=== PATIENT | female | born 1935 | race Asian ===

== ENCOUNTER → 2016-07-06 | Day surgery (SDC) | payer OTHER, MEDICARE ==
[~2016-07-06] VITALS: Ht 152.4 cm; Wt 56.7 kg
--- NOTE | 2016-07-06 14:04 | Operative Report ---
Operative/Inv Procedure Report Surgery Date: 07/06/16 Name of Procedure: Cystoscopy and change of L ureteral stent Pre-Operative Diagnosis: L hydronephrosis Post-Operative Diagnosis: Same Estimated Blood Loss: scant Surgeon/Food Service Clerk: Shine NAVARRETE,ALON Vásquez Anesthesia: moderate sedation Drains: 24 cm, 6 fr L double J ureteral stent Specimens: Removed stent Urine for culture Complications: none Condition: stable Operative Indication: L hydronephrosis due to L proximal ureteral stricture Operative/Procedure Note Note: The patient was taken to the cystoscopy room and identified. She was placed in the supine position on the cystoscopy table. A timeout was executed appropriately the patient awake. Intravenous anesthesia was then given. She was then placed in the dorsolithotomy position and prepped and draped in usual fashion for cystoscopy. Surgical pause was executed appropriately. A fluoroscopy image was taken with a marker on the left side of the abdomen to confirm the correct side of surgery as well as the correct orientation fluoroscopy image. Of note the indwelling left ureteral stent was also visualized. A 22 [place] Islander cystoscope sheath was placed into the bladder and cystoscopy was performed. The bladder was normal with exception of the distal end of the left ureteral stent being seen on the left trigone. Both ureteral orifices were normal in location. A sensor guidewire was placed through the cystoscope into the left ureter and up to the level of the kidney. Next the cystoscope was removed and placed back into the bladder adjacent guidewire. Using a grasper the indwelling stent was removed. Open-ended catheter was placed over the wire and the wire removed. Some contrast was injected. This point was clear that the wire had been in the proximal ureter in the midst of a tortuous left proximal ureteral stricture. An attempt to bypass the stricture using the guidewire through the open-ended catheter was unsuccessful. Therefore this guidewire was removed leaving the open-ended catheter in place. An angled tip guidewire was then placed with the open-ended catheter this was negotiated through the left proximal ureteral stricture up into the left renal collecting system which was hydronephrotic testing with contrast in it. The open-ended catheter was advanced over the glide wire. The guidewire was removed and replaced with a sensor wire. He open-ended catheter was then removed leaving the sensor wire in place. The visual fluoroscopic control, over the sensor wire , a 24 cm 6 [place] Islander left double-J ureteral stent was placed. No suture was left attached to the distal end. Thoracic began from the proximal in stent coiled in the left renal pelvis and the distal on the bladder. The cystoscope was removed. The patient tolerated the procedure well and has completed was taken to recovery in stable condition. The operative dictation on [facility] Findings: Left hydronephrosis due to tortuous stricture in the left proximal ureter Discharge Disposition: PACU
--- NOTE | 2016-07-07 10:26 | RADIOLOGY REPORT ---
EXAMINATION: XR ABDOMEN CLINICAL INDICATION: Left ureteral stent exchange. COMPARISON: 08/05/2015 TECHNIQUE: Fluoroscopic imaging of the left abdomen was utilized during procedure performed by Dr. Serrano. 4 spot fluoroscopy images are submitted into the electronic picture archive. FINDINGS: One of the saved images from the retrograde ureterography shows irregular narrowing of the mid left ureter and chronic, moderate left hydronephrosis. The final images show satisfactory position of the double-J left ureteral stent. FLUOROSCOPY TIME: 1 minute, 28 seconds. DOSE: 1.34 rad. IMPRESSION: Fluoroscopic imaging assistance provided to the operating room for left ureteral stent exchange.
== END ==
LOC: STS 03:54
DX: N13.1 Hydronephrosis with ureteral stricture, not elsewhere classified (principal); E11.9 Type 2 diabetes mellitus without complications; Z79.84 Long term (current) use of oral hypoglycemic drugs; E78.5 Hyperlipidemia, unspecified; I10 Essential (primary) hypertension
CPT/HCPCS: 74000; 87086; C2617; J0690

== ENCOUNTER 2017-05-27 10:27 | Inpatient (IN) | payer OTHER, MEDICARE ==
[~2017-05-27] VITALS: Ht 154.9 cm; Wt 59.9 kg
[~2017-05-27 10:27] MED LIST: AMLODIPINE BESY10 M1 PO; BENAZEPRIL HCL20 MG PO; BYSTOLIC5 M1 PO; METFORMIN HCL500 M4 PO; SIMVASTATIN20 M2 PO
--- NOTE | 2017-05-27 10:43 | ED INFLUENZA/URI COMPLAINT ---
History of Present Illness General Chief Complaint: General Adult Stated Complaint: SOB/COUGH Source: patient, family Exam Limitations: language barrier Vital Signs & Intake/Output Vital Signs & Intake/Output Vital Signs Date Time Temp Pulse Resp B/P B/P Pulse O2 O2 Flow FiO2 Mean Ox Delivery Rate 05/27 1342 98.0 86 22 173/72 96 Room Air 05/27 1214 94 05/27 1137 Room Air 05/27 1034 98.3 81 20 175/79 96 Room Air Allergies Coded Allergies: NO KNOWN ALLERGIES (07/02/16) NKA PER ANTIBIOTIC ORDER SHEET OF 12/10/14 (SJS) Reconcile Medications Amlodipine Besylate 10 MG TABLET 1 TAB PO DAILY HTN (Reported) Benazepril HCl 20 MG TABLET 1 TAB PO DAILY HTN (Reported) Metformin HCl (Metformin HCl ER) 500 MG TAB.ER.24H 1 TAB PO DAILY DM II ( Reported) Nebivolol HCl (Bystolic) 5 MG TABLET 1 TAB PO DAILY HTN (Reported) Simvastatin (Simvastatin*) 20 MG TABLET 1 TAB PO QPM CHOLESTEROL (Reported) Triage Note: PT TO ED C/O COUGH X A FEW DAYS. PT WENT TO WALK IN AND WAS ADVISED TO COME TO ED FOR FURTHER EVAL. NO OBVIOUS RESP DISTRESS. RA SATS 96%. DAUGHTER IN LAW HERE TO TRANSLATE. SPEAKING ONLY. Triage Nurses Notes Reviewed? yes Onset: Gradual Duration: getting worse Timing: recent history Severity: moderate Severity Numbers: 5 HPI: Patient is a 81-year-old female with past medical history HLD, diabetes, hypertension who is primarily Dominican speaking only who presents emergency room with daughter AND SON who translates for concerns of a one-week history of shortness of breath cough GENERALIZED weakness and fatigue intermittent chest pain was evaluated prior to arrival today by urgent care facility was advised to present to emergency room for symptoms. Positive sick contacts at home Denies any smoking history Patient is profoundly weak per son who lives with patient where she requires significant ambulatory assistance Patient is also complaining of left lateral back pain without a mechanism injury Patient is also having increased frequency of urination can tolerate by mouth however decreased amount Denies any leg swelling, hemoptysis (Roderick BARBER,Steven) Past History Travel History Traveled to [place] past 21 day No Medical History Any Pertinent Medical History? see below for history Cardiovascular: hypertension, hyperlipidemia Endocrine: diabetes Surgical History Surgical History: non-contributory Psychosocial History What is your primary language Dominican Tobacco Use: Never used ETOH Use: denies use Illicit Drug Use: denies illicit drug use Family History Hx Contributory? No (Steven Garcia) Review of Systems Review of Systems Constitutional: Reports: see HPI, malaise, weakness. EENTM: Reports: no symptoms. Respiratory: Reports: see HPI, cough, short of breath. Cardiovascular: Reports: see HPI, chest pain. Denies: peripheral edema. GI: Reports: see HPI. Denies: abdominal pain. Genitourinary: Reports: see HPI. Musculoskeletal: Reports: see HPI, back pain. Skin: Reports: no symptoms. Neurological/Psychological: Reports: no symptoms. Hematologic/Endocrine: Reports: no symptoms. Immunologic/Allergic: Reports: no symptoms. All Other Systems: Reviewed and Negative (Steven Garcia) Physical Exam Physical Exam General Appearance: lethargic, thin Head: atraumatic Eyes: Bilateral: normal appearance. Ears, Nose, Throat: normal ENT inspection, moist mucous membrane Neck: normal inspection Respiratory: chest non-tender, crackles, rhonchi Cardiovascular: regular rate/rhythm Peripheral Pulses: 2+ radial (R), 2+ radial (L) Gastrointestinal: normal bowel sounds, soft, non-tender, no organomegaly Back: normal inspection, LEFT LATERAL MUSCULAR PAIN UPON PALPATION Extremities: normal inspection, normal range of motion, no edema Neurologic/Psych: no motor/sensory deficits Skin: intact, normal color, warm/dry Core Measures Sepsis Present: No Sepsis Focused Exam Completed? No (Steven Garcia) Progress Differential Diagnosis: influenza, meningitis, neutropenia, otitis, pneumonia, pharyngitis, sinusitis Plan of Care: Orders Procedure Date/time Status Consistent Carbohydrate 1 05/27 D Active Misc Message 05/27 1451 Active ED Holding Orders 05/27 1451 Active Admit to inpatient 05/27 1451 Active Vital Signs 05/27 1451 Active Code Status 05/27 1451 Active ECHOCARDIOGRAM 05/27 1445 Active BLOOD CULTURE 05/27 1307 Active AEROSOL (GEN) 05/27 1216 Complete CULTURE,URINE 05/27 1211 Active EKG 05/27 1202 Active URINALYSIS 05/27 1143 Active LOWER RESPIRATORY CULTURE 05/27 1049 Active BLOOD CULTURE 05/27 1049 Active TROPONIN LEVEL 05/27 1049 Complete LACTIC ACID 05/27 1049 Complete D-DIMER 05/27 1049 Complete COMPREHENSIVE METABOLIC PANEL 05/27 1049 Complete CBC WITHOUT DIFFERENTIAL 05/27 1049 Complete B-TYPE NATRIURETIC PEP (BNP) 05/27 1049 Complete EKG 05/27 1049 Active RAPID VIRAL INFLUENZA A 05/27 1043 Complete Current Medications Sig/Sanya Start time Last Medication Dose Stop Time Status Admin Azithromycin 500 MG ONCE ONE 05/27 1430 AC (Zithromax) 05/27 1529 Sodium Chloride 250 ML (Normal Saline 0.9%) Furosemide 20 MG ONCE ONE 05/27 1430 CAN (Lasix) 05/27 1431 Laboratory Tests 05/27/17 1349: Lactic Acid Cancelled 05/27/17 1124: Anion Gap 18 H, Estimated GFR 18 L, BUN/Creatinine Ratio 14.2, Glucose 128 H, Lactic Acid 1.1, Calcium 9.1, Total Bilirubin 0.2, AST 97 H, ALT 99 H, Alkaline Phosphatase 124, Troponin I < 0.01, Ero-Z-Jlxllixrevf Pept 1540 H, Total Protein 6.5, Albumin 3.6, Globulin 2.9, Albumin/Globulin Ratio 1.2, D- Dimer High Sensitivty 529 H, CBC w Diff NO MAN DIFF REQ, RBC 3.27 L, MCV 89.5, MCH 30.0, RDW 13.0, MPV 8.2, Gran % 81.1 H, Lymphocytes % 11.6 L, Monocytes % 6.4, Eosinophils % 0.7, Basophils % 0.2, Absolute Granulocytes 8.3 H, Absolute Lymphocytes 1.2, Absolute Monocytes 0.7 H, Absolute Eosinophils 0.1, Absolute Basophils 0, PUBS MCHC 33.5 Microbiology 05/27 1307 BLOOD: Blood Culture - ORD 05/27 1254 BLOOD: Blood Culture - RECD 05/27 1211 URINE ROUT: Urine Culture - ORD 05/27 1200 BLOOD: Blood Culture - CAN Cancelled: Quantity not sufficient for Aerobic blood culture bottle. 05/27 1124 BLOOD: Blood Culture - RECD 05/27 1049 LOWER RESP: Respiratory Culture - ORD 05/27 1049 LOWER RESP: Gram Stain - ORD 05/27 1043 NASOPHARYN: Influenza Virus A & B Rapid Smear - COMP Differential diagnosis includes CHF PA PE electrolyte abnormality, AUGUSTO sepsis kidney stone cancer and AAA or dissection UTI Patient initial examination was noted to be in mild distress due to pain however oxygen saturation was 96% but tachypnea was noted. Patient requires significant assistance upon transfer from the wheelchair to the bed which FAMILY IS Stating PT HAS SIGNIFICANTLY DECLINED IN AMBULATORY STATUS IN WHICH PT DOES NOT USE ASSISTANCE UPON AMBULATION AT HOME, Patient Does Have Adventitious Breath Sounds Which Breathing Treatment Was Ordered Patient was given morphine and Tylenol for the left-sided back pain where after administration patient felt significantly improved and currently is resting comfortably at bedside patient does have concerns of acute kidney injury most likely to patient's respiratory complaints and decreased by mouth intake however patient did receive d-dimer showing age-adjusted mild elevation however my suspicion of a pulmonary embolism at this time is is low After admission patient may require a VQ scan No tachycardia and no hemoptysis no leg swelling CT scan shows results of concerns of bronchiolitis and bronchopneumonia IV antibiotics were administered for COMMUNITY ACQUIRED pneumonia, patient does have consideration of CHF due to cardiomegaly and pericardial effusion was telemetry upon admission was advisable. Discussed admission with Dr. Carter who also was aware Diagnostic Imaging: Viewed by Me: Radiology Read. Radiology Impression: acute abnormality CXR Impression: SEE COMMENTS Initial ED EKG: normal p-waves, normal QRS complex, 88 BPM,NSR Comments: PATIENT: Lolita SALAZAR [facility] PRESENT AGE: 81 PATIENT ACCOUNT NO: [id number] : 37 LOCATION: [facility] ORDERING PHYSICIAN: Steven BARBER SERVICE DATE: 05/27/17 EXAM TYPE: RAD - XRY-CHEST XRAY, TWO VIEWS EXAMINATION: XR CHEST CLINICAL INFORMATION: Cough COMPARISON: None TECHNIQUE: 2 views of the chest were obtained. FINDINGS: Moderate to marked cardiomegaly. No abnormal tracheal deviation. The lungs are normally and symmetrically expanded. No significant pleural effusions. Mild prominence of the pulmonary vasculature is noted. No overt pulmonary edema. No focal consolidation or pneumothorax. Minimal biapical pleural thickening. The regional skeleton is intact. Visualized upper abdomen is unremarkable. IMPRESSION: Moderate to marked cardiomegaly. Mild pulmonary venous congestion without overt edema. No radiographic evidence of pneumonia. DICTATED BY: Melania Greer MD DATE/TIME DICTATED:05/27/171124 [facility]B ENGINEER:SURINDER DATE/TIME TRANSCRIBED:05/27/171124 (Roderick BARBER,Steven) Departure Departure Disposition: STILL A PATIENT Condition: Stable Clinical Impression Primary Impression: CHF (congestive heart failure) Secondary Impressions: Acute on chronic renal failure, Anemia, Dehydration, Pneumonia, Transaminitis, Weakness Referrals: Juni Higgins DO (PCP/Family) Departure Forms: Customer Survey General Discharge Information Admission Note Spoke With: Una Dewey MD Documentation of Exam: Documentation of any treatments & extenuating circumstances including Concerns Regarding Discharge (functional status, medication knowledge or non-compliance, living conditions, etc.) that warrant an admission rather than observation: [ Discussed patient with Dr. ROBERSON who agrees with telemetry admission for concerns of CHF and bronchial pneumonia and acute on chronic renal failure, patient requires cardiology consultation and echocardiogram, repeat labs, blood cultures urine culture currently pending nephrology consultation] (Roderick BARBER,Steven) PA/PLASTIC WELDING MACHINE OPERATOR Co-Sign Statement Statement: ED Attending supervision documentation- [X] I saw and evaluated the patient. I have also reviewed all the pertinent lab results and diagnostic results. I agree with the findings and the plan of care as documented in the PA's/PLASTIC WELDING MACHINE OPERATOR's documentation. Patient presents from a walk-in center for a complaint of difficulty breathing and wheezing. Physical examination reveals a comfortable appearing patient in no acute respiratory distress but occasional cough. [] I have reviewed the ED Record and agree with the PA's/PLASTIC WELDING MACHINE OPERATOR's documentation. [] Additions or exceptions (if any) to the PAs/PLASTIC WELDING MACHINE OPERATOR's note and plan are summarized below: [] (Emma NAVARRETE,Justin Omalley)
--- NOTE | 2017-05-27 11:35 | RADIOLOGY REPORT ---
EXAMINATION: XR CHEST CLINICAL INFORMATION: Cough COMPARISON: None TECHNIQUE: 2 views of the chest were obtained. FINDINGS: Moderate to marked cardiomegaly. No abnormal tracheal deviation. The lungs are normally and symmetrically expanded. No significant pleural effusions. Mild prominence of the pulmonary vasculature is noted. No overt pulmonary edema. No focal consolidation or pneumothorax. Minimal biapical pleural thickening. The regional skeleton is intact. Visualized upper abdomen is unremarkable. IMPRESSION: Moderate to marked cardiomegaly. Mild pulmonary venous congestion without overt edema. No radiographic evidence of pneumonia.
[2017-05-27 11:37] LABS: ABSOLUTE BASOPHIL COUNT 0 /CUMM (0.0-0.2); ABSOLUTE EOSINOPHIL COUNT 0.1 /CUMM (0.0-0.7); ABSOLUTE GRANULOCYTE CT 8.3 /CUMM (1.4-6.5); ABSOLUTE LYMPH COUNT 1.2 /CUMM (1.2-3.4); ABSOLUTE MONOCYTE COUNT 0.7 /CUMM (0.10-0.60); BASOPHIL % 0.2 % (0.0-2.0); EOSINOPHIL % 0.7 % (0-5); GRANULOCYTE % 81.1 % (42.2-75.2); HEMATOCRIT 29.3 % (37-47); MEAN CORPUSCULAR HGB CONC 33.5 G/DL (33.0-37.0); MEAN CORPUSCULAR VOLUME 89.5 FL (81.0-99.0); MEAN PLATELET VOLUME 8.2 FL (7.4-10.4); PLATELET COUNT 316 /CUMM (130-400); RED BLOOD CELL CT 3.27 /CUMM (4.20-5.40); WHITE BLOOD CELL COUNT 10.3 /CUMM (4.8-10.8)
--- NOTE | 2017-05-27 14:14 | CT SCAN REPORT ---
EXAMINATION: CT CHEST WITHOUT IV CONTRAST CT ABDOMEN AND PELVIS WITHOUT IV CONTRAST CLINICAL INFORMATION: 81-year-old female with shortness of breath, cough and left-sided back pain. COMPARISON: CXR from 05/27/2017. CT images of the abdomen pelvis from 11/15/2014. TECHNIQUE: Noncontrast multidetector CT imaging examination of the chest, abdomen and pelvis was performed. Axial images are displayed at 5 mm and 0.65 mm slice thickness. Coronal and sagittal reformatted images were generated at the technologist's workstation and submitted for review. DLP: 342 mGy-cm FINDINGS: CHEST - LUNGS and PLEURA: Trachea and mainstem bronchi are widely patent and normal in caliber. Bronchial womack are thickened in both lungs. Multiple tree-in-bud nodular opacities are present within both upper lobes, right middle lobe and lower lobes. These findings are consistent with infectious bronchiolitis. Also, there are patchy nodular peribronchiolar opacities in lower lobes, as well, suggestive of bronchopneumonia. No pneumothorax or pleural effusion. MEDIASTINUM: Mild cardiomegaly. Three-vessel coronary artery atherosclerotic calcification. Mild atherosclerotic calcification of thoracic aorta. The ascending thoracic aorta is ectatic and measures up to 4 cm AP diameter. Moderate pericardial effusion. The esophagus and visualized portion of the thyroid gland are unremarkable. LYMPHATICS: No axillary or internal mammary lymphadenopathy. Multiple small lymph nodes are present within the mediastinum. These lymph nodes are not pathologic on the basis of size criteria. CHEST WALL/BONES: Bones appear diffusely osteoporotic. Multiple thoracic vertebra exhibit mild concavity of their endplates. No acute fractures. ABDOMEN AND PELVIS - HEPATOBILIARY: Liver has normal size and contour. Small, 0.6 cm hypodense focus within hepatic segment 4A is likely a cyst and remains unchanged in size compared to 11/15/2014. Otherwise, liver is unremarkable. Gallbladder is physiologically distended and without radiopaque calculi or wall edema. No intrahepatic or extrahepatic bile duct dilatation. PANCREAS: Unremarkable. SPLEEN: Unremarkable. ADRENAL GLANDS: Unremarkable. KIDNEYS, URETERS, BLADDER: Right kidney has normal cortical thickness. No right-sided nephrolithiasis or hydronephrosis. 1.5 cm cortical cyst of the right lower pole. There is a 0.9 cm cortical cyst of the mid left kidney. Chronic jftwamqi-bv-qgyopw atrophy of left renal cortex and chronic hydroureteronephrosis. A left ureteral stent extends from the level of the proximal ureter (beginning 1.8 cm distal to the ureteropelvic junction) to the bladder. There is mild urothelial thickening of the left intrarenal collecting system/ureter. No urinary tract calculi. GASTROINTESTINAL TRACT: Stomach is underdistended. Loops of bowel are normal in size. No evidence of inflammation or obstruction along the gastrointestinal tract. No ascites or pneumoperitoneum. ABDOMINAL WALL: Unremarkable. VASCULAR: Iivc-hq-gdwwitjg atherosclerotic calcification of the abdominal aorta without aneurysm. No retroperitoneal hematoma. LYMPH NODES: No pathologic sized lymph nodes within the abdomen or pelvis. PELVIC VISCERA: There are myometrial vascular calcifications of the uterus. No evidence of uterine or adnexal mass. No pelvic free fluid. OSSEOUS STRUCTURES: Bones appear diffusely osteoporotic. No acute findings within the lumbar spine, pelvis or proximal femurs. IMPRESSION: 1. Multiple tree-in-bud nodules throughout both lungs, consistent with infectious bronchiolitis. Also, patchy peribronchial nodular opacities are present within lower lobes, compatible with bronchopneumonia. No pleural effusion. 2. Other findings in the chest include cardiomegaly, atherosclerotic disease of coronary arteries, mild ectasia of the ascending thoracic aorta (4 cm diameter) and moderate pericardial effusion. 3. Chronic left hydroureteronephrosis with left ureteral stent in place, and chronic vngjfswi-wz-ihyxck atrophy of the left renal cortex. 4. Diffuse osteoporosis.
--- NOTE | 2017-05-27 15:00 | History & Physical ---
Shirlene De Guzman MD,[facility] 05/27/17 1451: General Information and HPI MD Statement: I have seen and personally examined Lolita SALAZAR and documented this H&P. The patient is a 81 year old F who presented with a patient stated chief complaint of cough and weakness. Source of Information: patient, family Exam Limitations: language barrier History of Present Illness: Patient is 81 y F with PMH of chronic left hydronephrosis (w/ indwelling stent changed every 9month, last changed in Feb), HTN, HLip, DM presented to the ED with cc of cough and weakness. Patient is Bel[place]ian speaking, son and daughter were at the bedside and contributing in history taking. According to family patients was in usual state of health until 10 days ago that started to have dry cough, wheezing and generalized weakness. She also had decreased appetite and physical activity compared to baseline. She denied any sneezing or upper respiratory tract infection symptoms, yet she had contact with her son who had URTI symptoms for which he is recieving consevative treatment. She also started to have a lower back from after coming to hospital today. Patient denied any chest pain, shortness of breathing, dizziness, but reported constipation. Patient was last admitted to [place] in Feb 2017 for Cystoscopy and change of L ureteral stent by Dr Burrell. Last echocardiogram was in 2012 showing normal ejection fraction of 65% and moderate MR and borderline pulmonary hypertension. She lives with her family (son and daughter), in her baseline she ambulates independently around the home. She denied any alcohol intake or smoking. Allergies/Medications Allergies: Coded Allergies: NO KNOWN ALLERGIES (07/02/16) NKA PER ANTIBIOTIC ORDER SHEET OF 12/10/14 (S) Home Med list Amlodipine Besylate 10 MG TABLET 1 TAB PO DAILY HTN (Reported) Benazepril HCl 20 MG TABLET 1 TAB PO DAILY HTN (Reported) Metformin HCl (Metformin HCl ER) 500 MG TAB.ER.24H 1 TAB PO DAILY DM II ( Reported) Nebivolol HCl (Bystolic) 5 MG TABLET 1 TAB PO DAILY HTN (Reported) Simvastatin (Simvastatin*) 20 MG TABLET 1 TAB PO QPM CHOLESTEROL (Reported) Past History Travel History Traveled to [place] past 21 day No Medical History Cardiovascular: hypertension, hyperlipidemia Endocrine: diabetes Surgical History Surgical History: non-contributory Past Family/Social History Psychosocial History ETOH Use: denies use Illicit Drug Use: denies illicit drug use Review of Systems Review of Systems Constitutional: Reports: see HPI. EENTM: Reports: no symptoms. Cardiovascular: Denies: chest pain, edema, orthopena. Respiratory: Reports: cough, wheezing. Denies: short of breath, sputum production. GI: Reports: constipation. Musculoskeletal: Reports: back pain. Exam & Diagnostic Data Last 24 Hrs of Vital Signs/I&O Vital Signs Date Time Temp Pulse Resp B/P B/P Pulse O2 O2 Flow FiO2 Mean Ox Delivery Rate 05/27 1342 98.0 86 22 173/72 96 Room Air 05/27 1214 94 05/27 1137 Room Air 05/27 1034 98.3 81 20 175/79 96 Room Air Intake & Output 05/27 1600 05/27 0800 05/27 0000 Intake Total 0 Output Total Balance 0 Intake, Oral 0 Patient 127 lb Weight Weight Reported by Patient Measurement Method Physical Exam General Appearance Alert, Oriented X3, Cooperative, No Acute Distress, [place]ian speaking, relatively ill looking Skin No Significant Lesion Skin Temp/Moisture Exam: Warm/Dry Sepsis Skin Exam (color): Normal for Ethnicity HEENT Atraumatic, EOMI, Mucous Membr. moist/pink Neck No JVD Cardiovascular Regular Rate, Normal S1, Normal S2, no decrease in heart sounds Lungs Bilateral wheezing and ronchi Abdomen Soft, No Tenderness Extremities bilateral, trace to +1 edema Last 24 Hrs of Labs/Vishnu: Laboratory Tests 05/27/17 1453: Urinalysis LIGHT H, Urine Color YEL, Urine Clarity CLEAR, Urine pH 6.0, Ur Specific [place] 1.020, Urine Protein 100 H, Urine Ketones NEG, Urine Nitrite NEG, Urine Bilirubin NEG, Urine Urobilinogen 0.2, Ur Leukocyte Esterase NEG, Ur Microscopic SEDIMENT EXAMINED, Urine RBC RARE, Urine WBC 3-5 H, Ur Epithelial Cells FEW, Granular Casts RARE H, Urine Mucus FEW, Micro UA Comment , Urine Hemoglobin SMALL H, Urine Glucose NEG 05/27/17 1349: Lactic Acid Cancelled 05/27/17 1124: Anion Gap 18 H, Estimated GFR 18 L, BUN/Creatinine Ratio 14.2, Glucose 128 H, Lactic Acid 1.1, Calcium 9.1, Total Bilirubin 0.2, AST 97 H, ALT 99 H, Alkaline Phosphatase 124, Troponin I < 0.01, Fuz-I-Rwipsrwnzpw Pept 1540 H, Total Protein 6.5, Albumin 3.6, Globulin 2.9, Albumin/Globulin Ratio 1.2, D- Dimer High Sensitivty 529 H, CBC w Diff NO MAN DIFF REQ, RBC 3.27 L, MCV 89.5, MCH 30.0, RDW 13.0, MPV 8.2, Gran % 81.1 H, Lymphocytes % 11.6 L, Monocytes % 6.4, Eosinophils % 0.7, Basophils % 0.2, Absolute Granulocytes 8.3 H, Absolute Lymphocytes 1.2, Absolute Monocytes 0.7 H, Absolute Eosinophils 0.1, Absolute Basophils 0, PUBS MCHC 33.5 Microbiology 05/27 145 URINE ROUT: Legionella Antigen - COMP 05/27 145 URINE ROUT: Streptococcus pneumoniae Antigen (M - COMP 05/27 145 URINE ROUT: Urine Culture - RECD 05/27 1307 BLOOD: Blood Culture - ORD 05/27 1254 BLOOD: Blood Culture - RECD 05/27 1200 BLOOD: Blood Culture - CAN Cancelled: Quantity not sufficient for Aerobic blood culture bottle. 05/27 1124 BLOOD: Blood Culture - RECD 05/27 1049 LOWER RESP: Respiratory Culture - ORD 05/27 1049 LOWER RESP: Gram Stain - ORD 05/27 1043 NASOPHARYN: Influenza Virus A & B Rapid Smear - COMP Assessment/Plan Assessment: 81 y F presented with cough, wheezing and weakness PMH: chronic left hydronephrosis (w/ indwelling stent changed every 9month, last changed in Feb), HTN, HLip, DM VS, Ph Ex at admission: BP 17 5/79, [place] 81, RR 20, no fever, saturating well in room air Labs at admission: Hgb 9.8, MCV 89, WBC 10.3, Gran 81%, bicarbonate 16, AG 18, BUN 27, CR 2.6, AST 97, ALT 99, proBNP 1540, d-dimer 529, UA granular cast Imagings at admission: * CXR: Moderate to marked cardiomegaly. Mild pulmonary venous congestion without overt edema. No radiographic evidence of pneumonia. * Chest/Abd CT: 1. Multiple tree-in-bud nodules throughout both lungs, consistent with infectious bronchiolitis. Also, patchy peribronchial nodular opacities are present within lower lobes, compatible with bronchopneumonia. No pleural effusion. 2. Other findings in the chest include cardiomegaly, atherosclerotic disease of coronary arteries, mild ectasia of the ascending thoracic aorta (4 cm diameter) and moderate pericardial effusion. 3. Chronic left hydroureteronephrosis with left ureteral stent in place, and chronic pppjmlgq-vt-tazhwc atrophy of the left renal cortex. 4. Diffuse osteoporosis. Patient was admitted to telemetry floor for management of following conditions: Cough and dyspnea Bronchopneumonia/pneumonia As CT scan revealed patient most likely has bronchopneumonia. - Admit to tele floor - Continue IV ceftriaxone and azithromycin - Samuels culture, blood culture X2 urine and sputum culture, urine Ag for pnuemococ and legionella Mod pericardial effusion- evaluation of CHF was shown in CT scan - I and O, vital signs and weight everyday - Echo stat - cardio consult AUGUSTO granular cast in the urine that suggest ATN. - Urine lytes - consider IV fluids after Urine lytes Increased D Dimer Could be related to the kdiney function Anemia Hg 9.8, normal MCV, could be related to kidney disease, aplastic related to age, chronic disease - check iron panel for now Backpain management of pain with low dose tynelol - tynelol for pain Chronic medical conditions, DM, HTN, HLP, Hep B carrier transaminitis most likely related to Hep B - Hold statin due to increased LFt for now - Hold benicar due to Cr - Continue beta kerri and Amlodipine Diabetic diet, 2 g Na and fluid restriction DVT mechanical and phramacological As Ranked By This Provider Problem List: 1. AUGUSTO (acute kidney injury) 2. CHF (congestive heart failure) 3. Transaminitis 4. Anemia 5. Pneumonia Core Measures/Misc (01/24) Acute Coronary Syndrome ACS Diagnosis: No Congestive Heart Failure Congestive Heart Failure Diagnosis Yes Cerebrovascular Accident CVA/TIA Diagnosis: No VTE (View Protocol) VTE Risk Factors Age>40 No Mechanical VTE Prophylaxis d/t N/A MechProphylax Ordered No VTE Pharm Prophylaxis d/t NA PharmProphylax ordered Sepsis (View protocol) Sepsis Present: No Siobhan Charles 05/27/17 1613: Resident Review Statement Resident Statement: examined this patient, discussed with product development intern, agreed with product development intern, reviewed images, amended to note Other Findings: 81-year-old lady with past medical history of hypertension, diabetes, chronic left hydronephrosis requiring stent placements every 9 months following up with Dr. Serrano, CKD,HLP into the hospital with the family for chief complaint of weakness, coughing. According to the family( patient is [place]ian is speaking), patient has been having dry cough with occasional weakness and occasional wheezing, shortness of breath on exertion for 10 days. Patient son had URI about 15 days ago. Patient denied any chest pain and abdominal pain but reported having back pain upon arrival to the hospital. No fevers or chills, no diarrhea but reported constipation. No history of CVAs or heart attacks. Vital signs admission were stable with elevated blood pressure Alert and oriented 3 HEENT Atraumatic, PERRLA, EOMI Neck Supple, No JVD, Cardiovascular Regular Rate, Normal S1, Normal S2 Lungs bilateral crackles in bases Abdomen Normal Bowel Sounds, Soft, No Tenderness, No Hepatospenomegaly, No Masses, mild midline lumbar tenderness no CVA tenderness Extremities No Clubbing, No Cyanosis, No Edema,Normal Pulses Labs are notable for hemoglobin 9.8, HCO3 16, anion gap 18, creatinine 2.6, BUN 37, AST 97, ALT 99, BNP 1540, troponin 0.01 , UA is positive for urine protein , URINE: CELLULAR CASTS CXR Moderate to marked cardiomegaly. Mild pulmonary venous congestion without overt edema. No radiographic evidence of pneumonia. EKG normal sinus rhythm, 88, QTC 465, inverted p in v1 CT chest abdomen IMPRESSION: 1. Multiple tree-in-bud nodules throughout both lungs, consistent with infectious bronchiolitis. Also, patchy peribronchial nodular opacities are present within lower lobes, compatible with bronchopneumonia. No pleural effusion. 2. Other findings in the chest include cardiomegaly, atherosclerotic disease of coronary arteries, mild ectasia of the ascending thoracic aorta (4 cm diameter) and moderate pericardial effusion. 3. Chronic left hydroureteronephrosis with left ureteral stent in place, and chronic mffcbzyc-yi-kzdtzd atrophy of the left renal cortex. 4. Diffuse osteoporosis. Upon further inverstigattion patient a positive hep B DNA results 2012 she is HEP B carrier Assessment Dry coughing and possible pneumonia Moderate pericardial effusion History of hypertension History of diabetes History of HLP AUGUSTO with celluar cast in the urine Elevated AST and ALT Anemia HEP B carrier plan Admit to telemetry A stat echocardiogram and cardiology consult IV hydration with 1 bag of normal saline Continue IV ceftriaxone and azithromycin Blood cultures 2, urine culture, sputum culture, urine Legionella and strep antigen AUGUSTO can be due to poor oral intake versus MPGN? vs CKD due to Chronic hydronephrosis Accu-Cheks and low-dose sliding scale insulin Diabetic diet 2 g potassium and sodium restrictions Hold Statin for now and check LFTs tomorrow Pain management with low-dose Tylenol DVT prophylaxis is mechanical and pharmacological Hold Benicar and continue beta kerri and amlodipine for BP control Check iron panel, B12, folate Full code
--- NOTE | 2017-05-27 15:48 | Admission Certification ---
Admission Certification Certification Statement - As attending physician, I certify that at the time of - admission, based on clinical presentation, severity of - symptoms, need for further diagnostic testing and - therapeutic interventions, and risk of adverse outcomes - without in-hospital treatment, in my clinical assessment, - this patient requires an acute hospital stay for a minimum - of two nights or longer. I have also considered psychsocial - factors such as support system, advanced age, financial - issues, cognitive issues, and failed out-patient treatments, - past re-admission history, safety of patient, and lack of - compliance as applicable. Specific rationale supporting this admission is: Pneumonia and New pericardial effusion.
--- NOTE | 2017-05-27 16:03 | PN- Att Addend ---
Attending MD Review Statement Attending Statement Attending MD Statement: examined this patient, discuss w/resident/PA/TELEVISION MAINTENANCE MAN, agreed w/resident/PA/TELEVISION MAINTENANCE MAN, discussed with family, reviewed EMR data (avail), discussed w/ nursing, discussed w/case mgmt Attending Assessment/Plan: Laboratory Tests 05/27/17 1453: Urinalysis LIGHT H, Urine Color YEL, Urine Clarity CLEAR, Urine pH 6.0, Ur Specific [place] 1.020, Urine Protein 100 H, Urine Ketones NEG, Urine Nitrite NEG, Urine Bilirubin NEG, Urine Urobilinogen 0.2, Ur Leukocyte Esterase NEG, Ur Microscopic SEDIMENT EXAMINED, Urine RBC RARE, Urine WBC 3-5 H, Ur Epithelial Cells FEW, Granular Casts RARE H, Urine Mucus FEW, Micro UA Comment , Urine Hemoglobin SMALL H, Urine Glucose NEG 05/27/17 1349: Lactic Acid Cancelled 05/27/17 1124: Anion Gap 18 H, Estimated GFR 18 L, BUN/Creatinine Ratio 14.2, Glucose 128 H, Lactic Acid 1.1, Calcium 9.1, Total Bilirubin 0.2, AST 97 H, ALT 99 H, Alkaline Phosphatase 124, Troponin I < 0.01, Ual-S-Pfvzyttiuol Pept 1540 H, Total Protein 6.5, Albumin 3.6, Globulin 2.9, Albumin/Globulin Ratio 1.2, D- Dimer High Sensitivty 529 H, CBC w Diff NO MAN DIFF REQ, RBC 3.27 L, MCV 89.5, MCH 30.0, RDW 13.0, MPV 8.2, Gran % 81.1 H, Lymphocytes % 11.6 L, Monocytes % 6.4, Eosinophils % 0.7, Basophils % 0.2, Absolute Granulocytes 8.3 H, Absolute Lymphocytes 1.2, Absolute Monocytes 0.7 H, Absolute Eosinophils 0.1, Absolute Basophils 0, PUBS MCHC 33.5 Microbiology 05/27 1453 URINE ROUT: Legionella Antigen - COMP 05/27 1453 URINE ROUT: Streptococcus pneumoniae Antigen (M - COMP 05/27 1043 NASOPHARYN: Influenza Virus A & B Rapid Smear - COMP Vital Signs Date Time Temp Pulse Resp B/P B/P Pulse O2 O2 Flow FiO2 Mean Ox Delivery Rate 05/27 1342 98.0 86 22 173/72 96 Room Air 05/27 1214 94 05/27 1137 Room Air 05/27 1034 98.3 81 20 175/79 96 Room Air Pt seen and examined in ER. 81 yr old female with pmh of HTN on amlodipiine, benazepril and bystolic, HLD on statins,DM on metformin, ckd , chronic left side hydronephrosis for which she had stent replaced every 9 months was brought to the ER by family for sob and cough for 1 week duration. Pt was initally taking to urgent care and was sent to ER from there. Pt on CT scan of the chest was found to have- "Multiple tree-in-bud nodules throughout both lungs, consistent with infectious bronchiolitis. Also, patchy peribronchial nodular opacities are present within lower lobes, compatible with bronchopneumonia. Also found to have moderate pericardial effusion" . Pt being admitted for pneumonia and new pericardail effusion- cont on abx and will get stat Echo and will get cardiology consult. Montior on telemetry. gentle hydration. AUGUSTO on CKD- unclear what baseline is . will f/u on renal panel in am. gentle hydration. hold metformin and benazepril. DM- hold metformin. put pt on SSI DVT proh- alps and sc heparin. d/w pt and family the care plan.
[2017-05-27 16:30] VITALS: BP 170/84
--- NOTE | 2017-05-27 20:20 | Cons- Cardiology ---
General Information and HPI Consulting Request Date of Consult: 05/27/17 Requested By: Gail Weber MD Reason for Consult: Pericardial effusion Source of Information: family, old records Exam Limitations: language barrier Allergies/Medications Allergies: Coded Allergies: NO KNOWN ALLERGIES (07/02/16) NKA PER ANTIBIOTIC ORDER SHEET OF 12/10/14 (SJS) Home Med List: Amlodipine Besylate 10 MG TABLET 1 TAB PO DAILY HTN (Reported) Benazepril HCl 20 MG TABLET 1 TAB PO DAILY HTN (Reported) Metformin HCl (Metformin HCl ER) 500 MG TAB.ER.24H 1 TAB PO DAILY DM II ( Reported) Nebivolol HCl (Bystolic) 5 MG TABLET 1 TAB PO DAILY HTN (Reported) Simvastatin (Simvastatin*) 20 MG TABLET 1 TAB PO QPM CHOLESTEROL (Reported) Current Medications: Current Medications Sig/Sanya Start time Last Medication Dose Route Stop Time Status Admin Acetaminophen 325 MG Q4P PRN 05/27 1800 AC 05/27 PO 2012 Acetaminophen 0 .STK-MED ONE 05/27 1230 DC IV Acetaminophen 1,000 MG ONCE ONE 05/27 1215 DC 05/27 N/A 1 UNIT IV 05/27 1229 1227 Albuterol Sulfate 3 ML ONCE ONE 05/27 1200 DC 05/27 INH 05/27 1201 1208 Amlodipine Besylate 10 MG DAILY 05/28 1000 AC PO Amlodipine Besylate 10 MG ONCE ONE 05/27 1615 DC 05/27 PO 05/27 1616 2013 Azithromycin 500 MG Q24H 05/28 1000 AC Sodium Chloride 250 ML IV Azithromycin 500 MG ONCE ONE 05/27 1430 DC 05/27 Sodium Chloride 250 ML IV 05/27 1529 1501 Ceftriaxone Sodium 1,000 MG DAILY 05/28 1000 AC IV Ceftriaxone Sodium 0 .STK-MED ONE 05/27 1542 DC .ROUTE Ceftriaxone Sodium 1,000 MG ONCE ONE 05/27 1430 DC 05/27 IV 05/27 1431 1609 Furosemide 20 MG ONCE ONE 05/27 1430 CAN IV 05/27 1431 Heparin Sodium 5,000 UNIT Q8 05/27 2200 AC 05/27 (Porcine) SC 2013 Influenza Virus 0.5 ML ONCE ONE 05/27 1730 DC Vaccine IM 05/27 1731 Insulin Aspart 0 TIDAC 05/27 1700 AC SC Ipratropium [place] 2.5 ML ONCE ONE 05/27 1200 DC 05/27 INH 05/27 1201 1209 Morphine Sulfate 0 .STK-MED ONE 05/27 1216 DC .ROUTE Morphine Sulfate 2 MG ONCE ONE 05/27 1215 DC 05/27 IV 05/27 1216 1220 Nebivolol 5 MG DAILY 05/28 1000 AC PO Sodium Chloride 1,000 ML Q13H 05/27 1600 AC 05/27 IV 05/28 0459 1744 Sodium Chloride 500 ML BOLUS ONE 05/27 1300 DC 05/27 IV 05/27 1359 1311 Sodium Chloride 500 ML BOLUS ONE 05/27 1215 DC 05/27 IV 05/27 1314 1221 Past History Travel History Traveled to [place] past 21 day No Medical History Blood Transfusion Hx: No Neurological: NONE EENT: NONE Cardiovascular: hypertension, hyperlipidemia Respiratory: pneumonia Gastrointestinal: NONE Hepatic: HEP B CARRIER Renal: L HYDRONBEPHROSIS L RENAL STENT Musculoskeletal: NONE Psychiatric: NONE Endocrine: diabetes Blood Disorders: NONE Cancer(s): NONE 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 Home Services at Home: None Smoking Status: Never Smoked ETOH Use: denies use Illicit Drug Use: denies illicit drug use Exam & Diagnostic Data Vital Signs and I&O Vital Signs Date Time Temp Pulse Resp B/P B/P Pulse O2 O2 Flow FiO2 Mean Ox Delivery Rate 05/27 2012 99.4 05/27 2012 90 182/90 05/27 1630 98.9 89 20 170/84 94 Room Air 05/27 1628 Room Air 05/27 1610 99.0 84 24 183/79 95 Room Air 05/27 1342 98.0 86 22 173/72 96 Room Air 05/27 1214 94 05/27 1137 Room Air 05/27 1034 98.3 81 20 175/79 96 Room Air Intake & Output 05/27 1600 05/27 0800 05/27 0000 05/26 1600 05/26 0800 05/26 0000 Intake Total 0 Output Total Balance 0 Intake, Oral 0 Patient 127 lb Weight Weight Reported by Patient Measurement Method Physical Exam: General Appearance Alert, Oriented X3, Cooperative, No Acute Distress, [place] speaking, relatively ill looking; VSS; Pulsus paradoxus normal Skin No Significant Lesion Skin Temp/Moisture Exam: Warm/Dry HEENT Atraumatic, EOMI, Mucous Membr. moist/pink Neck No JVD, carotids normal bilaterally Cardiovascular Regular Rate, Normal S1, Normal S2, no decrease in heart sounds Lungs Bilateral wheezing and ronchi Abdomen Soft, No Tenderness Extremities bilateral, trace to +1 edema Labs/Vishnu Results: Laboratory Tests 05/27 05/27 1453 1349 Chemistry Lactic Acid Cancelled Urines Urinalysis LIGHT H Urine Color (YEL,AMB,STR) YEL Urine Clarity (CLEAR) CLEAR Urine pH (5.0 - 8.0) 6.0 Ur Specific [place] (1.001 - 1.035) 1.020 Urine Protein (NEG,<30 MG/DL) 100 H Urine Ketones (NEG) NEG Urine Nitrite (NEG) NEG Urine Bilirubin (NEG) NEG Urine Urobilinogen (0.1 - 1.0 EU/dl) 0.2 Ur Leukocyte Esterase (NEG) NEG Ur Microscopic SEDIMENT EXAMINED Urine RBC (0 - 5 /HPF) RARE Urine WBC (0 - 2 /HPF) 3-5 H Ur Epithelial Cells (NONE,FEW) FEW Granular Casts (NONE /LPF) RARE H Urine Mucus (FEW,NONE) FEW Micro UA Comment Urine Hemoglobin (NEG) SMALL H Urine Glucose (N MG/DL) NEG 05/27 1124 Chemistry Sodium (137 - 145 mmol/L) 142 Potassium (3.5 - 5.1 mmol/L) 4.4 Chloride (98 - 107 mmol/L) 107 Carbon Dioxide (22 - 30 mmol/L) 16 L Anion Gap (5 - 16) 18 H BUN (7 - 17 mg/dL) 37 H Creatinine (0.5 - 1.0 mg/dL) 2.6 H Estimated GFR (>60 ml/min) 18 L BUN/Creatinine Ratio (7 - 25 %) 14.2 Glucose (65 - 99 mg/dL) 128 H Lactic Acid (0.7 - 2.1 mmol/L) 1.1 Calcium (8.4 - 10.2 mg/dL) 9.1 Iron (37 - 170 ug/dL) 36 L TIBC (265 - 497 ug/dL) 257 L Ferritin (11.1 - 264 ng/mL) 379.0 H Total Bilirubin (0.2 - 1.3 mg/dL) 0.2 AST (14 - 36 U/L) 97 H ALT (9 - 52 U/L) 99 H Alkaline Phosphatase (<127 U/L) 124 Troponin I (< 0.11 ng/ml) < 0.01 Msd-Q-Uugejljcpyy Pept (<125 pg/mL) 1540 H Total Protein (6.3 - 8.2 g/dL) 6.5 Albumin (3.5 - 5.0 g/dL) 3.6 Globulin (1.9 - 4.2 gm/dL) 2.9 Albumin/Globulin Ratio (1.1 - 2.2 %) 1.2 Vitamin B12 (239 - 931 pg/mL) > 1000 H Folate (2.76 - 20.0 ng/mL) 9.8 Coagulation D-Dimer High Sensitivty (0 - 243 ng/ml) 529 H Hematology CBC w Diff NO MAN DIFF REQ WBC (4.8 - 10.8 /CUMM) 10.3 RBC (4.20 - 5.40 /CUMM) 3.27 L Hgb (12.0 - 16.0 G/DL) 9.8 L Hct (37 - 47 %) 29.3 L MCV (81.0 - 99.0 FL) 89.5 MCH (27.0 - 31.0 PG) 30.0 RDW (11.5 - 14.5 %) 13.0 Plt Count (130 - 400 /CUMM) 316 MPV (7.4 - 10.4 FL) 8.2 Gran % (42.2 - 75.2 %) 81.1 H Lymphocytes % (20.5 - 51.1 %) 11.6 L Monocytes % (1.7 - 9.3 %) 6.4 Eosinophils % (0 - 5 %) 0.7 Basophils % (0.0 - 2.0 %) 0.2 Absolute Granulocytes (1.4 - 6.5 /CUMM) 8.3 H Absolute Lymphocytes (1.2 - 3.4 /CUMM) 1.2 Absolute Monocytes (0.10 - 0.60 /CUMM) 0.7 H Absolute Eosinophils (0.0 - 0.7 /CUMM) 0.1 Absolute Basophils (0.0 - 0.2 /CUMM) 0 PUBS MCHC (33.0 - 37.0 G/DL) 33.5 Diagnostic Data CXR Results IMPRESSION: Moderate to marked cardiomegaly. Mild pulmonary venous congestion without overt edema. No radiographic evidence of pneumonia. Other Results CT: IMPRESSION: 1. Multiple tree-in-bud nodules throughout both lungs, consistent with infectious bronchiolitis. Also, patchy peribronchial nodular opacities are present within lower lobes, compatible with bronchopneumonia. No pleural effusion. 2. Other findings in the chest include cardiomegaly, atherosclerotic disease of coronary arteries, mild ectasia of the ascending thoracic aorta (4 cm diameter) and moderate pericardial effusion. 3. Chronic left hydroureteronephrosis with left ureteral stent in place, and chronic axbpcgzx-to-orcouu atrophy of the left renal cortex. 4. Diffuse osteoporosis. Assessment/Plan Assessment/Plan Assessment: 1. Cough with abnormal CT chest; ? pneumonia 2. Moderate sized pericardial effusion; hemodynamically insignificant at the present time by echocardiogram 3. HTN 4. History of HLD and DM 5. CAD with coronary calcification on CT chest. 6. AUGUSTO 7. Anemia 8. Transaminitis Recommendations: - COntinue as outlined by the medical team - Check serial troponins - Keep on telemetry - ? Pulmonary consult - Followup labs in the AM - Maintain adequate hydration - Continue antibiotics pending full culture results. - Anemia workup - Monitor BP closely Consult Acknowledgment - Thank you for your consult request.
[2017-05-27 22:13] VITALS: BP 178/80
[2017-05-28 06:35] VITALS: BP 148/74
--- NOTE | 2017-05-28 07:51 | ECHOCARDIOGRAM REPORT ---
Lolita SALAZAR Age: 81 : 1935 Gender: F Exam Date: 05/27/2017 16:49 Exam Location: [address] Ht (in): 59 Wt (lb): 127 BSA: 1.56 BP: 173 / 72 Ordering Physician: Siobhan Charles MD Referring Physician: Gabrielle Jaimes MD Technologist: Sneha Morales [facility] Room Number: 180-02 Indications: PERICARDIAL EFFUSION Rhythm: Sinus Technical Quality: Fair FINDINGS Left Ventricle Normal size left ventricle. No obvious regional wall motion abnormalities. Hyperdynamic left ventricular systolic function. Left ventricular wall thickness increased. Right Ventricle Normal right ventricular size and function. Right Atrium Normal right atrial size. Left Atrium Mild to moderate left atrial dilatation. Mitral Valve Mitral valve thickened. [id number] mitral regurgitation. Aortic Valve Trileaflet aortic valve. Diffuse thickening (sclerosis) of the aortic valve cusps without reduced excursion. No aortic stenosis. No aortic regurgitation. Tricuspid Valve Tricuspid valve not well visualized, grossly normal. Mild tricuspid regurgitation. Pulmonic Valve Pulmonic valve not well visualized, grossly normal. Pericardium Moderate pericardial effusion. Great Vessels Mildly dilated proximal ascending aorta (tube). CONCLUSIONS 1. Moderate aortic sclerosis is present with no valvular stenosis or insufficiency. Minimal enlargement of the ascending aorta is present 2. Mitral leaflet thickening is present with mild to moderate mitral insufficiency and mild to moderate left atrial enlargement. 3. A small to moderate size circumferential pericardial effusion is present which is most prominent anteriorly and toward the apex. The effusion is hemodynamically insignificant 5. The left ventricular chamber size is normal with mild concentric hypertrophy and hyperdynamic systolic function with an ejection fraction of greater than 75% and no resting wall motion abnormalities. 6. Right heart structures are grossly normal. Mild tricuspid insufficiency is present with a right ventricular systolic pressure 36 mmHg. 7. At the present time, there are no anatomic or Doppler findings present to suggest any hemodynamic significance to the pericardial effusion present. Gabrielle Jaimes M.D. (Electronically Signed) Final Date: 28 May 2017 07:50 MEASUREMENTS (Male / Female) Normal Values 2D ECHO LV Diastolic Diameter PLAX 4.4 cm 4.2 - 5.9 / 3.9 - 5.3 cm LV Systolic Diameter PLAX 2.4 cm 2.1 - 4.0 cm LV Fractional Shortening PLAX 45.5 % 25 - 46 % LV Ejection Fraction 2D Teich 77.0 % IVS Diastolic Thickness 1.4 cm LVPW Diastolic Thickness 1.4 cm LV Relative Wall Thickness 0.6 RV Internal Dim ED PLAX 3.2 cm 1.9 - 3.8 cm LVOT Diameter 1.8 cm Aortic Root Diameter 2.7 cm LA Systolic Diameter LX 4.5 cm 3.0 - 4.0 / 2.7 - 3.8 cm LA Volume 38.0 cm 18 - 58 / 22 - 52 cm Ascending Aorta Diameter 3.9 cm DOPPLER AV Peak Velocity 216.0 cm/s AV Peak Gradient 18.7 mmHg AV Mean Velocity 150.0 cm/s AV Mean Gradient 10.0 mmHg AV Velocity Time Integral 47.0 cm LVOT Peak Velocity 179.0 cm/s LVOT Peak Gradient 12.8 mmHg LVOT Mean Velocity 129.0 cm/s LVOT Mean Gradient 7.0 mmHg LVOT Velocity Time Integral 41.5 cm LVOT Stroke Volume 105.6 cm AV Area Cont Eq vti 2.2 cm AV Area Cont Eq pk 2.1 cm MV Peak Velocity 175.0 cm/s MV Peak Gradient 12.3 mmHg MV Mean Velocity 94.6 cm/s MV Mean Gradient 4.0 mmHg Mitral E Point Velocity 108.0 cm/s Mitral A Point Velocity 149.0 cm/s Mitral E to A Ratio 0.7 MV PHT Velocity 121.0 cm/s MV Deceleration [place] 358.0 cm/s MV Pressure Half Time 101.4 ms MV Area PHT 2.2 cm MV Deceleration Time 161.0 ms TR Peak Velocity 299.0 cm/s TR Peak Gradient 35.8 mmHg Right Atrial Pressure 5.0 mmHg Pulmonary Artery Systolic Pressu 40.8 mmHg Right Ventricular Systolic Press 40.8 mmHg PV Peak Velocity 185.0 cm/s PV Peak Gradient 13.7 mmHg PV Mean Velocity 123.0 cm/s PV Mean Gradient 7.0 mmHg PV Velocity Time Integral 37.1 cm LV E' Lateral Velocity 8.5 cm/s Mitral E to LV E' Lateral Ratio 12.8 LV E' Septal Velocity 7.7 cm/s Mitral E to LV E' Septal Ratio 14.0
--- NOTE | 2017-05-28 08:08 | PN- Housestaff ---
Shirlene De Guzman MD,Ami 05/28/17 0807: Subjective Follow-up For: Bronchopneumonia/pneumonia Pericardial effusion AUG[place]O Hep B carrier Tele-Events Since Last Visit: NSR 85-90 Subjective: Patient visited today, [place] is picking lady was lying in bed comfortably in no acute distress, was alert and oriented. [id number] at the bedside and was contributing during interview. Reported significant improvement in breathing and wheezing, No fever or chills, no chest pain or palpitation, no other events. Review of Systems Constitutional: Reports: see HPI. Objective Last 24 Hrs of Vital Signs/I&O Vital Signs Date Time Temp Pulse Resp B/P B/P Pulse O2 O2 Flow FiO2 Mean Ox Delivery Rate 05/28 0957 84 148/86 05/28 0956 84 148/86 05/28 0954 84 148/86 05/28 0800 Room Air 05/28 0635 98.0 88 20 148/74 92 Room Air 05/28 0000 Room Air 05/27 2213 99.5 91 20 178/80 92 Room Air 05/27 2211 99.5 05/27 2012 99.4 05/27 2012 90 182/90 05/27 1630 98.9 89 20 170/84 94 Room Air 05/27 1628 Room Air 05/27 1610 99.0 84 24 183/79 95 Room Air Intake & Output 05/28 1600 05/28 0800 05/28 0000 Intake Total 527 089 3281 Output Total Balance 310 636 8465 Intake, IV 280 600 600 Intake, Oral 480 240 480 Patient 132 lb Weight Weight Reported by Patient Measurement Method Physical Exam General Appearance: Alert, Oriented X3, Cooperative, No Acute Distress Skin: No Rashes Skin Temp/Moisture Exam: Warm/Dry Sepsis Skin Exam (color): Normal for Ethnicity HEENT: Atraumatic, EOMI, Mucous Membr. moist/pink Cardiovascular: Regular Rate, Normal S1, Normal S2 Lungs: bilateral ronchi and wheezing Abdomen: Soft, No Tenderness Neurological: Normal Speech, Strength at 5/5 X4 Ext Extremities: No Edema Current Medications: Current Medications Sig/Sanya Start time Last Medication Dose Route Stop Time Status Admin Acetaminophen 325 MG .STK-MED ONE 05/28 0548 DC PO 05/28 548 Acetaminophen 650 MG .STK-MED ONE 05/287 DC PO 01/19 0028 Acetaminophen 325 MG Q4P PRN 05/27 1800 AC 05/28 PO 1001 Amlodipine Besylate 10 MG DAILY 05/28 1000 AC 05/28 PO 0956 Amlodipine Besylate 10 MG ONCE ONE 05/27 1615 DC 05/27 PO 05/27 1616 2013 Azithromycin 500 MG Q24H 05/28 1000 AC 05/28 Sodium Chloride 250 ML IV 0956 Azithromycin 500 MG ONCE ONE 05/27 1430 DC 05/27 Sodium Chloride 250 ML IV 05/27 1529 1501 Ceftriaxone Sodium 1,000 MG DAILY 05/28 1000 AC 05/28 IV 0956 Ceftriaxone Sodium 0 .STK-MED ONE 05/27 1542 DC .ROUTE Ceftriaxone Sodium 1,000 MG ONCE ONE 05/27 1430 DC 05/27 IV 05/27 1431 1609 Furosemide 20 MG ONCE ONE 05/27 1430 CAN IV 05/27 1431 Guaifenesin 10 ML Q4-6 PRN PRN 05/28 0230 AC 05/28 PO 0556 Heparin Sodium 5,000 UNIT Q8 05/27 2200 AC 05/28 (Porcine) SC 0555 Influenza Virus 0.5 ML ONCE ONE 05/27 1730 DC Vaccine IM 05/27 1731 Insulin Aspart 0 TIDAC 05/27 1700 AC SC Nebivolol 5 MG DAILY 05/28 1000 AC 05/28 PO 0957 Sodium Chloride 1,000 ML Q13H 05/27 1600 DC 05/27 IV 05/28 0459 1744 Last 24 Hrs of Lab/Vishnu Results Last 24 Hrs of Labs/Mics: Laboratory Tests 05/28/17 0637: Anion Gap 15, Estimated GFR 20 L, BUN/Creatinine Ratio 13.5, Total Bilirubin 0.1 L, Direct Bilirubin 0.1, AST 45 H, ALT 67 H, Alkaline Phosphatase 102, Troponin I 0.02, Total Protein 5.5 L, Albumin 2.8 L, CBC w Diff NO MAN DIFF REQ, RBC 2.76 L, MCV 90.0, MCH 30.8, RDW 13.3, MPV 8.7, Gran % 83.9 H, Lymphocytes % 10.0 L, Monocytes % 5.8, Eosinophils % 0.2, Basophils % 0.1, Absolute Granulocytes 9.1 H, Absolute Lymphocytes 1.1 L, Absolute Monocytes 0.6, Absolute Eosinophils 0, Absolute Basophils 0, PUBS MCHC 34.2, HIV 1&2 Ab Western Blot NONREACTIVE 05/28/17 0600: Hemoglobin A1c 6.1 H 05/28/17 0600: Total Bilirubin Cancelled, Direct Bilirubin Cancelled, AST Cancelled, ALT Cancelled, Alkaline Phosphatase Cancelled, Total Protein Cancelled, Albumin Cancelled 05/28/17 0010: Troponin I < 0.01 05/27/17 1453: Urinalysis LIGHT H, Urine Color YEL, Urine Clarity CLEAR, Urine pH 6.0, Ur Specific [place] 1.020, Urine Protein 100 H, Urine Ketones NEG, Urine Nitrite NEG, Urine Bilirubin NEG, Urine Urobilinogen 0.2, Ur Leukocyte Esterase NEG, Ur Microscopic SEDIMENT EXAMINED, Urine RBC RARE, Urine WBC 3-5 H, Ur Epithelial Cells FEW, Granular Casts RARE H, Urine Mucus FEW, Micro UA Comment , Urine Hemoglobin SMALL H, Urine Glucose NEG 05/27/17 1453: Ur Random Creatinine 33.4, Ur Random Sodium 31, Ur Random Potassium 11.4, Fraction Sodium Excret 1.7 H Microbiology 05/28 9 BLOOD: Blood Culture - RECD 05/27 1452 URINE ROUT: Legionella Antigen - COMP 05/27 1452 URINE ROUT: Streptococcus pneumoniae Antigen (M - COMP 05/27 1452 URINE ROUT: Urine Culture - RES Assessment/Plan Assessment: 81 y F presented with cough, wheezing and weakness PMH: chronic left hydronephrosis (w/ indwelling stent changed every 9month, last changed in Feb), HTN, HLip, DM VS, Ph Ex at admission: BP 17 5/79, WV 81, RR 20, no fever, saturating well in room air Labs at admission: Hgb 9.8, MCV 89, WBC 10.3, Gran 81%, bicarbonate 16, AG 18, BUN 27, CR 2.6, AST 97, ALT 99, proBNP 1540, d-dimer 529, UA granular cast Imagings at admission: * CXR: Moderate to marked cardiomegaly. Mild pulmonary venous congestion without overt edema. No radiographic evidence of pneumonia. * Chest/Abd CT: 1. Multiple tree-in-bud nodules throughout both lungs, consistent with infectious bronchiolitis. Also, patchy peribronchial nodular opacities are present within lower lobes, compatible with bronchopneumonia. No pleural effusion. 2. Other findings in the chest include cardiomegaly, atherosclerotic disease of coronary arteries, mild ectasia of the ascending thoracic aorta (4 cm diameter) and moderate pericardial effusion. 3. Chronic left hydroureteronephrosis with left ureteral stent in place, and chronic phffkvbf-ic-epgvij atrophy of the left renal cortex. 4. Diffuse osteoporosis. Patient was admitted to telemetry floor for management of following conditions: Cough and dyspnea Bronchopneumonia/pneumonia As CT scan revealed patient most likely has bronchopneumonia. - Admit to tele floor - Continue IV ceftriaxone and azithromycin - Follow Samuels culture, blood culture X2 urine and sputum culture, urine Ag for pnuemococ and legionella Mod pericardial effusion- evaluation of CHF was shown in CT scan Echocardiography 05/27/17: 1. Moderate aortic sclerosis is present with no valvular stenosis or insufficiency. Minimal enlargement of the ascending aorta is present 2. Mitral leaflet thickening is present with mild to moderate mitral insufficiency and mild to moderate left atrial enlargement. 3. A small to moderate size circumferential pericardial effusion is present which is most prominent anteriorly and toward the apex. The effusion is hemodynamically insignificant 5. The left ventricular chamber size is normal with mild concentric hypertrophy and hyperdynamic systolic function with an ejection fraction of greater than 75% and no resting wall motion abnormalities. 6. Right heart structures are grossly normal. Mild tricuspid insufficiency is present with a right ventricular systolic pressure 36 mmHg. 7. At the present time, there are no anatomic or Doppler findings present to suggest any hemodynamic significance to the pericardial effusion present. - I and O, vital signs and weight everyday - Follow cardio consult - Limited echo on Wednesday AUGUSTO granular cast in the urine that suggest ATN. Creatinine relatively improved to her baseline. She also has proteinuria and considering diabetes and hepatitis B per communication with nephrology planned to have her follow in outpatient. - outpatient follow up Increased D Dimer Could be related to the kdiney function Anemia Hg 9.8, normal MCV, could be related to kidney disease, aplastic related to age, chronic disease - check iron panel for now Backpain management of pain with low dose tynelol - tynelol for pain Chronic medical conditions, DM, HTN, HLP, Hep B carrier transaminitis most likely related to Hep B - Hold statin due to increased LFt for now - Hold benicar due to Cr - Continue beta kerri and Amlodipine Diabetic diet, 2 g Na and fluid restriction DVT mechanical and phramacological FC Problem List: 1. Acute on chronic renal failure 2. Pneumonia 3. Transaminitis 4. Bronchopneumonia 5. Pericardial effusion Pain Ratin Pain Location: None Pain Goal: Pain 4 or less Pain Plan: Continue current plan Tomorrow's Labs & Rationales: CBC BEP Gail Weber 05/28/17 1547: Attending Review Statement Attending Statement Attending MD Statement: examined this patient, discuss w/resident/PA/WET PROCESS OPERATOR, agreed w/resident/PA/WET PROCESS OPERATOR, reviewed EMR data (avail), discussed with nursing, discussed with case mgmt Attending Assessment/Plan: 81 yr old female with pmh of HTN on amlodipiine, benazepril and bystolic, HLD on statins,DM on metformin, ckd , chronic left side hydronephrosis for which she had stent replaced every 9 months was brought to the ER by family for sob and cough for 1 week duration. Pt was initally taking to urgent care and was sent to ER from there. Pt on CT scan of the chest was found to have- "Multiple tree-in-bud nodules throughout both lungs, consistent with infectious bronchiolitis. Also, patchy peribronchial nodular opacities are present within lower lobes, compatible with bronchopneumonia. Also found to have moderate pericardial effusion" . Pt being admitted for pneumonia and new pericardail effusion- cont on abx and Echo done reveals hemodynamically insignificant pericardial effusion. d/w cardiology and no intervention at [facility]. Plan to get limited echo over the weekend to see pericardial effusion. AUGUSTO on CKD- unclear what baseline is . will f/u on renal panel in am. hold metformin and benazepril. nephrology consulted. creatinine improving. DM- hold metformin. put pt on SSI
[2017-05-28 08:13] LABS: ABSOLUTE BASOPHIL COUNT 0 /CUMM (0.0-0.2); ABSOLUTE EOSINOPHIL COUNT 0 /CUMM (0.0-0.7); ABSOLUTE GRANULOCYTE CT 9.1 /CUMM (1.4-6.5); ABSOLUTE LYMPH COUNT 1.1 /CUMM (1.2-3.4); ABSOLUTE MONOCYTE COUNT 0.6 /CUMM (0.10-0.60); BASOPHIL % 0.1 % (0.0-2.0); EOSINOPHIL % 0.2 % (0-5); HEMATOCRIT 24.9 % (37-47); MEAN CORPUSCULAR HGB 30.8 PG (27.0-31.0); MEAN CORPUSCULAR HGB CONC 34.2 G/DL (33.0-37.0); MEAN PLATELET VOLUME 8.7 FL (7.4-10.4); PLATELET COUNT 261 /CUMM (130-400); RBC DISTRIBUTION WIDTH 13.3 % (11.5-14.5); RED BLOOD CELL CT 2.76 /CUMM (4.20-5.40); WHITE BLOOD CELL COUNT 10.9 /CUMM (4.8-10.8)
[2017-05-28 09:12] LABS: GRANULOCYTE % 83.9 % (42.2-75.2)
[2017-05-28 09:54] VITALS: BP 148/86
--- NOTE | 2017-05-28 12:14 | Cons- Nephrology ---
General Information and HPI Consulting Request Date of Consult: 05/28/17 Requested By: Gail Weber MD Reason for Consult: IN ERROR History of Present Illness: IN ERROR Allergies/Medications Allergies: Coded Allergies: NO KNOWN ALLERGIES (07/02/16) NKA PER ANTIBIOTIC ORDER SHEET OF 12/10/14 (SJS) Home Med List: Amlodipine Besylate 10 MG TABLET 1 TAB PO DAILY HTN (Reported) Benazepril HCl 20 MG TABLET 1 TAB PO DAILY HTN (Reported) Metformin HCl (Metformin HCl ER) 500 MG TAB.ER.24H 1 TAB PO DAILY DM II ( Reported) Nebivolol HCl (Bystolic) 5 MG TABLET 1 TAB PO DAILY HTN (Reported) Simvastatin (Simvastatin*) 20 MG TABLET 1 TAB PO QPM CHOLESTEROL (Reported) Review of Systems Review of Systems: IN ERROR Past History Travel History Traveled to [place] past 21 day No Medical History Blood Transfusion Hx: No Neurological: NONE EENT: NONE Cardiovascular: hypertension, hyperlipidemia Respiratory: pneumonia Gastrointestinal: NONE 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 Home Services at Home: None Smoking Status: Never Smoked ETOH Use: denies use Illicit Drug Use: denies illicit drug use Exam & Diagnostic Data Vital Signs and I&O Vital Signs Date Time Temp Pulse Resp B/P B/P Pulse O2 O2 Flow FiO2 Mean Ox Delivery Rate 05/28 1536 98.0 86 20 160/70 92 05/28 0957 84 148/86 05/28 0956 84 148/86 05/28 0954 84 148/86 05/28 0800 Room Air 05/28 0635 98.0 88 20 148/74 92 Room Air 05/28 0000 Room Air 05/27 2213 99.5 91 20 178/80 92 Room Air 05/27 221 99.5 05/27 2012 99.4 05/27 2013 90 182/90 05/27 1630 98.9 89 20 170/84 94 Room Air 05/27 1628 Room Air 05/27 1610 99.0 84 24 183/79 95 Room Air Intake & Output 05/28 1600 05/28 0400 05/27 1600 05/27 0400 01/17 1600 05/26 0400 Intake Total 1600 1080 0 Output Total Balance 1600 1080 0 Intake, IV 880 600 Intake, Oral 720 480 0 Patient 132 lb 127 lb Weight Weight Reported by Patient Reported by Patient Measurement Method Physical Exam: IN ERROR Results Pertinent Lab Results: Laboratory Tests 05/28 05/28 05/28 0637 0600 0600 Chemistry Sodium (137 - 145 mmol/L) 145 Potassium (3.5 - 5.1 mmol/L) 4.4 Chloride (98 - 107 mmol/L) 115 H Carbon Dioxide (22 - 30 mmol/L) 15 L Anion Gap (5 - 16) 15 BUN (7 - 17 mg/dL) 31 H Creatinine (0.5 - 1.0 mg/dL) 2.3 H Estimated GFR (>60 ml/min) 20 L BUN/Creatinine Ratio (7 - 25 %) 13.5 Hemoglobin A1c (4.2 - 5.8 %) 6.1 H Total Bilirubin (0.2 - 1.3 mg/dL) 0.1 L Cancelled Direct Bilirubin (< 0.4 mg/dL) 0.1 Cancelled AST (14 - 36 U/L) 45 H Cancelled ALT (9 - 52 U/L) 67 H Cancelled Alkaline Phosphatase (<127 U/L) 102 Cancelled Troponin I (< 0.11 ng/ml) 0.02 Total Protein (6.3 - 8.2 g/dL) 5.5 L Cancelled Albumin (3.5 - 5.0 g/dL) 2.8 L Cancelled Hematology CBC w Diff NO MAN DIFF REQ WBC (4.8 - 10.8 /CUMM) 10.9 H RBC (4.20 - 5.40 /CUMM) 2.76 L Hgb (12.0 - 16.0 G/DL) 8.5 L Hct (37 - 47 %) 24.9 L MCV (81.0 - 99.0 FL) 90.0 MCH (27.0 - 31.0 PG) 30.8 RDW (11.5 - 14.5 %) 13.3 Plt Count (130 - 400 /CUMM) 261 MPV (7.4 - 10.4 FL) 8.7 Gran % (42.2 - 75.2 %) 83.9 H Lymphocytes % (20.5 - 51.1 %) 10.0 L Monocytes % (1.7 - 9.3 %) 5.8 Eosinophils % (0 - 5 %) 0.2 Basophils % (0.0 - 2.0 %) 0.1 Absolute Granulocytes (1.4 - 6.5 /CUMM) 9.1 H Absolute Lymphocytes (1.2 - 3.4 /CUMM) 1.1 L Absolute Monocytes (0.10 - 0.60 /CUMM) 0.6 Absolute Eosinophils (0.0 - 0.7 /CUMM) 0 Absolute Basophils (0.0 - 0.2 /CUMM) 0 PUBS MCHC (33.0 - 37.0 G/DL) 34.2 Serology HIV 1&2 Ab Western Blot (NONREACTIVE) NONREACTIVE 05/28 05/27 05/27 0010 1453 1453 Chemistry Troponin I (< 0.11 ng/ml) < 0.01 Urines Urinalysis LIGHT H Urine Color (YEL,AMB,STR) YEL Urine Clarity (CLEAR) CLEAR Urine pH (5.0 - 8.0) 6.0 Ur Specific [place] (1.001 - 1.035) 1.020 Urine Protein (NEG,<30 MG/DL) 100 H Urine Ketones (NEG) NEG Urine Nitrite (NEG) NEG Urine Bilirubin (NEG) NEG Urine Urobilinogen (0.1 - 1.0 EU/dl) 0.2 Ur Leukocyte Esterase (NEG) NEG Ur Microscopic SEDIMENT EXAMINED Urine RBC (0 - 5 /HPF) RARE Urine WBC (0 - 2 /HPF) 3-5 H Ur Epithelial Cells (NONE,FEW) FEW Granular Casts (NONE /LPF) RARE H Urine Mucus (FEW,NONE) FEW Micro UA Comment Urine Hemoglobin (NEG) SMALL H Ur Random Creatinine (mg/dL) 33.4 Ur Random Sodium (30 - 90 mmol/L) 31 Ur Random Potassium (mmol/L) 11.4 Fraction Sodium Excret (<1% %) 1.7 H Urine Glucose (N MG/DL) NEG 05/27 05/27 1349 1124 Chemistry Sodium (137 - 145 mmol/L) 142 Potassium (3.5 - 5.1 mmol/L) 4.4 Chloride (98 - 107 mmol/L) 107 Carbon Dioxide (22 - 30 mmol/L) 16 L Anion Gap (5 - 16) 18 H BUN (7 - 17 mg/dL) 37 H Creatinine (0.5 - 1.0 mg/dL) 2.6 H Estimated GFR (>60 ml/min) 18 L BUN/Creatinine Ratio (7 - 25 %) 14.2 Glucose (65 - 99 mg/dL) 128 H Lactic Acid (0.7 - 2.1 mmol/L) Cancelled 1.1 Calcium (8.4 - 10.2 mg/dL) 9.1 Iron (37 - 170 ug/dL) 36 L TIBC (265 - 497 ug/dL) 257 L Ferritin (11.1 - 264 ng/mL) 379.0 H Total Bilirubin (0.2 - 1.3 mg/dL) 0.2 AST (14 - 36 U/L) 97 H ALT (9 - 52 U/L) 99 H Alkaline Phosphatase (<127 U/L) 124 Troponin I (< 0.11 ng/ml) < 0.01 [id number] Pept (<125 pg/mL) 1540 H Total Protein (6.3 - 8.2 g/dL) 6.5 Albumin (3.5 - 5.0 g/dL) 3.6 Globulin (1.9 - 4.2 gm/dL) 2.9 Albumin/Globulin Ratio (1.1 - 2.2 %) 1.2 Vitamin B12 (239 - 931 pg/mL) > 1000 H Folate (2.76 - 20.0 ng/mL) 9.8 Coagulation D-Dimer High Sensitivty (0 - 243 ng/ml) 529 H Hematology CBC w Diff NO MAN DIFF REQ WBC (4.8 - 10.8 /CUMM) 10.3 RBC (4.20 - 5.40 /CUMM) 3.27 L Hgb (12.0 - 16.0 G/DL) 9.8 L Hct (37 - 47 %) 29.3 L MCV (81.0 - 99.0 FL) 89.5 MCH (27.0 - 31.0 PG) 30.0 RDW (11.5 - 14.5 %) 13.0 Plt Count (130 - 400 /CUMM) 316 MPV (7.4 - 10.4 FL) 8.2 Gran % (42.2 - 75.2 %) 81.1 H Lymphocytes % (20.5 - 51.1 %) 11.6 L Monocytes % (1.7 - 9.3 %) 6.4 Eosinophils % (0 - 5 %) 0.7 Basophils % (0.0 - 2.0 %) 0.2 Absolute Granulocytes (1.4 - 6.5 /CUMM) 8.3 H Absolute Lymphocytes (1.2 - 3.4 /CUMM) 1.2 Absolute Monocytes (0.10 - 0.60 /CUMM) 0.7 H Absolute Eosinophils (0.0 - 0.7 /CUMM) 0.1 Absolute Basophils (0.0 - 0.2 /CUMM) 0 PUBS MCHC (33.0 - 37.0 G/DL) 33.5 Assessment/Plan Assessment/Recommendations Assessment: IN ERROR Recommendations: IN ERROR
--- NOTE | 2017-05-28 12:55 | PN- Cardiology ---
Objective Vital Signs and I&Os Vital Signs Date Time Temp Pulse Resp B/P B/P Pulse O2 O2 Flow FiO2 Mean Ox Delivery Rate 05/28 0957 84 148/86 05/28 0956 84 148/86 05/28 0954 84 148/86 05/28 0800 Room Air 05/28 0635 98.0 88 20 148/74 92 Room Air 05/28 0000 Room Air 05/27 2213 99.5 91 20 178/80 92 Room Air 05/27 2211 99.5 05/27 2012 99.4 05/27 2012 90 182/90 05/27 1630 98.9 89 20 170/84 94 Room Air 05/27 1628 Room Air 05/27 1610 99.0 84 24 183/79 95 Room Air 05/27 1342 98.0 86 22 173/72 96 Room Air Intake & Output 05/28 1600 05/28 0800 05/28 0000 05/27 1600 05/27 0800 05/27 0000 Intake Total 840 1080 0 Output Total Balance 840 1080 0 Intake, IV 600 600 Intake, Oral 240 480 0 Patient 132 lb 127 lb Weight Weight Reported by Patient Reported by Patient Measurement Method Current Medications: Current Medications Sig/Sanya Start time Last Medication Dose Route Stop Time Status Admin Acetaminophen 650 MG .STK-MED ONE 05/28 0027 DC PO 05/28 0028 Acetaminophen 325 MG Q4P PRN 05/27 1800 AC 05/28 PO 1001 Amlodipine Besylate 10 MG DAILY 05/28 1000 AC 05/28 PO 0956 Amlodipine Besylate 10 MG ONCE ONE 05/27 1615 DC 05/27 PO 05/27 1616 2013 Azithromycin 500 MG Q24H 05/28 1000 AC 05/28 Sodium Chloride 250 ML IV 0956 Azithromycin 500 MG ONCE ONE 05/27 1430 DC 05/27 Sodium Chloride 250 ML IV 05/27 1529 1501 Ceftriaxone Sodium 1,000 MG DAILY 05/28 1000 AC 05/28 IV 0956 Ceftriaxone Sodium 0 .STK-MED ONE 05/27 1542 DC .ROUTE Ceftriaxone Sodium 1,000 MG ONCE ONE 05/27 1430 DC 05/27 IV 05/27 1431 1609 Furosemide 20 MG ONCE ONE 05/27 1430 CAN IV 05/27 1431 Guaifenesin 10 ML Q4-6 PRN PRN 05/28 0230 AC 05/28 PO 0556 Heparin Sodium 5,000 UNIT Q8 05/27 2200 AC 05/28 (Porcine) SC 0555 Influenza Virus 0.5 ML ONCE ONE 05/27 1730 DC Vaccine IM 05/27 1731 Insulin Aspart 0 TIDAC 05/27 1700 AC SC Nebivolol 5 MG DAILY 05/28 1000 AC 05/28 PO 0957 Sodium Chloride 1,000 ML Q13H 05/27 1600 DC 05/27 IV 05/28 0459 1744 Sodium Chloride 500 ML BOLUS ONE 05/27 1300 DC 05/27 IV 05/27 1359 1311 Sodium Chloride 500 ML BOLUS ONE 05/27 1215 DC 05/27 IV 05/27 1314 1221 Results Last 48 Hrs of Labs/Mics: Laboratory Tests 05/28/17 0637: Anion Gap 15, Estimated GFR 20 L, BUN/Creatinine Ratio 13.5, Total Bilirubin 0.1 L, Direct Bilirubin 0.1, AST 45 H, ALT 67 H, Alkaline Phosphatase 102, Troponin I 0.02, Total Protein 5.5 L, Albumin 2.8 L, CBC w Diff NO MAN DIFF REQ, RBC 2.76 L, MCV 90.0, MCH 30.8, RDW 13.3, MPV 8.7, Gran % 83.9 H, Lymphocytes % 10.0 L, Monocytes % 5.8, Eosinophils % 0.2, Basophils % 0.1, Absolute Granulocytes 9.1 H, Absolute Lymphocytes 1.1 L, Absolute Monocytes 0.6, Absolute Eosinophils 0, Absolute Basophils 0, PUBS MCHC 34.2, HIV 1&2 Ab Western Blot NONREACTIVE 05/28/17 0600: Hemoglobin A1c 6.1 H 05/28/17 0600: Total Bilirubin Cancelled, Direct Bilirubin Cancelled, AST Cancelled, ALT Cancelled, Alkaline Phosphatase Cancelled, Total Protein Cancelled, Albumin Cancelled 05/28/17 0010: Troponin I < 0.01 05/27/17 1453: Urinalysis LIGHT H, Urine Color YEL, Urine Clarity CLEAR, Urine pH 6.0, Ur Specific [place] 1.020, Urine Protein 100 H, Urine Ketones NEG, Urine Nitrite NEG, Urine Bilirubin NEG, Urine Urobilinogen 0.2, Ur Leukocyte Esterase NEG, Ur Microscopic SEDIMENT EXAMINED, Urine RBC RARE, Urine WBC 3-5 H, Ur Epithelial Cells FEW, Granular Casts RARE H, Urine Mucus FEW, Micro UA Comment , Urine Hemoglobin SMALL H, Urine Glucose NEG 05/27/17 1453: Ur Random Creatinine 33.4, Ur Random Sodium 31, Ur Random Potassium 11.4, Fraction Sodium Excret 1.7 H 05/27/17 1349: Lactic Acid Cancelled 05/27/17 1124: Anion Gap 18 H, Estimated GFR 18 L, BUN/Creatinine Ratio 14.2, Glucose 128 H, Lactic Acid 1.1, Calcium 9.1, Iron 36 L, TIBC 257 L, Ferritin 379.0 H, Total Bilirubin 0.2, AST 97 H, ALT 99 H, Alkaline Phosphatase 124, Troponin I < 0.01 , Jqz-Y-Sjdvkkslvtn Pept 1540 H, Total Protein 6.5, Albumin 3.6, Globulin 2.9, Albumin/Globulin Ratio 1.2, Vitamin B12 > 1000 H, Folate 9.8, D-Dimer High Sensitivty 529 H, CBC w Diff NO MAN DIFF REQ, RBC 3.27 L, MCV 89.5, MCH 30.0, RDW 13.0, MPV 8.2, Gran % 81.1 H, Lymphocytes % 11.6 L, Monocytes % 6.4, Eosinophils % 0.7, Basophils % 0.2, Absolute Granulocytes 8.3 H, Absolute Lymphocytes 1.2, Absolute Monocytes 0.7 H, Absolute Eosinophils 0.1, Absolute Basophils 0, PUBS MCHC 33.5 Microbiology 05/27 1453 URINE ROUT: Legionella Antigen - COMP 05/27 1453 URINE ROUT: Streptococcus pneumoniae Antigen (M - COMP 05/27 1043 NASOPHARYN: Influenza Virus A & B Rapid Smear - COMP Assessment/Plan Assessment/Plan Assessment: 1. Cough with abnormal CT chest; ? pneumonia 2. Moderate sized pericardial effusion; hemodynamically insignificant at the present time by echocardiogram 3. HTN 4. History of HLD and DM 5. CAD with coronary calcification on CT chest. 6. AUGUSTO 7. Anemia 8. Transaminitis Recommendations: - COntinue as outlined by the medical team - Keep on telemetry for now. - Conntinue antibiotics pending culture results. - Nephrology input noted. - Limited followup echocardiogram in several days to reassess size and hemodynamic significance of pericardial effusion. Continue telemetry? Yes
--- NOTE | 2017-05-28 15:20 | Cons- Nephrology ---
General Information and HPI Consulting Request Date of Consult: 05/28/17 Requested By: Gail Weber MD Reason for Consult: CKD Source of Information: family, old records Exam Limitations: language barrier History of Present Illness: The patient is a 81 y/o woman with a PMHx most significant for Stage 4 CKD proteinuric never seen Nephrology, chronic L hydronephrosis for which she follows with Urology for q9 month stent exchange, HTN on an PATRICIA-I, DM on metformin, and Hepatitis B who initially presented to [facility] with 1.5 weeks of weakness/cough. On presentation, BP 175/79 afebrile. Labs notable for SCr 2.6 (baseline 2.2), albumin 3.6, Hg 9.8, WBC 10.3, and a mild transaminitis. UA with 100mg/dl protein, rare RBC, 3-5 WBC. Chest x-ray with mild pulm vascular congestion. Samuels-CT pursued kidney part noted to have chronic kcxuryqg-ut-bmznuk atrophy of the L renal cortex and chronic hydroureteronephrosis otherwise notable for tree -in-bud nodules in lung c/w infectious bronchiolitis/bronchopneumonia, a moderate pericardial effusion. TTE subsequently performed and notable for normal LV function moderate hemodynamically insignificant small to moderate pericardial effusion. The patient was started on empiric abx for PNA. Transaminitis thought to be 2/2 Hep B. SCr improved to 2.3 with the IVF given in the ER. Of note, RAAS inhibition being held. Allergies/Medications Allergies: Coded Allergies: NO KNOWN ALLERGIES (07/02/16) NKA PER ANTIBIOTIC ORDER SHEET OF 12/10/14 (S) Home Med List: Amlodipine Besylate 10 MG TABLET 1 TAB PO DAILY HTN (Reported) Benazepril HCl 20 MG TABLET 1 TAB PO DAILY HTN (Reported) Metformin HCl (Metformin HCl ER) 500 MG TAB.ER.24H 1 TAB PO DAILY DM II ( Reported) Nebivolol HCl (Bystolic) 5 MG TABLET 1 TAB PO DAILY HTN (Reported) Simvastatin (Simvastatin*) 20 MG TABLET 1 TAB PO QPM CHOLESTEROL (Reported) Current Medications: Current Medications Sig/Sanya Start time Last Medication Dose Route Stop Time Status Admin Acetaminophen 325 MG .STK-MED ONE 05/28 547 DC PO 05/28 548 Acetaminophen 650 MG .STK-MED ONE 01/19 0027 DC PO 05/28 0028 Acetaminophen 325 MG Q4P PRN 05/27 1800 AC 05/28 PO 1001 Amlodipine Besylate 10 MG DAILY 05/28 1000 AC 05/28 PO 0956 Amlodipine Besylate 10 MG ONCE ONE 05/27 1615 DC 05/27 PO 05/27 1616 2013 Azithromycin 500 MG Q24H 05/28 1445 AC Dextrose/Water 250 ML IV Azithromycin 500 MG Q24H 05/28 1000 DC 05/28 Sodium Chloride 250 ML IV 0956 Azithromycin 500 MG ONCE ONE 05/27 1430 DC 05/27 Sodium Chloride 250 ML IV 05/27 1529 1501 Ceftriaxone Sodium 1,000 MG DAILY 05/28 1000 AC 05/28 IV 0956 Ceftriaxone Sodium 0 .STK-MED ONE 05/27 1542 DC .ROUTE Guaifenesin 10 ML Q4-6 PRN PRN 05/28 0230 AC 05/28 PO 0556 Heparin Sodium 5,000 UNIT Q8 05/27 2200 AC 05/28 (Porcine) SC 0555 Influenza Virus 0.5 ML ONCE ONE 05/27 1730 DC Vaccine IM 05/27 1731 Insulin Aspart 0 TIDAC 05/27 1700 AC SC Nebivolol 5 MG DAILY 05/28 1000 AC 05/28 PO 0957 Sodium Chloride 1,000 ML Q13H 05/27 1600 DC 05/27 IV 05/28 0459 1744 Review of Systems Review of Systems: Complete 14 point ROS neg except as per HPI Past History Travel History Traveled to [place] past 21 day No Medical History Blood Transfusion Hx: No Neurological: NONE EENT: NONE Cardiovascular: hypertension, hyperlipidemia Respiratory: pneumonia Gastrointestinal: NONE Hepatic: HEP B CARRIER Renal: L HYDRONBEPHROSIS L RENAL STENT Musculoskeletal: NONE Psychiatric: NONE Endocrine: diabetes Blood Disorders: NONE Cancer(s): NONE 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 Home Services at Home: None Smoking Status: Never Smoked ETOH Use: denies use Illicit Drug Use: denies illicit drug use Exam & Diagnostic Data Vital Signs and I&O Vital Signs Date Time Temp Pulse Resp B/P B/P Pulse O2 O2 Flow FiO2 Mean Ox Delivery Rate 05/28 0957 84 148/86 05/28 0956 84 148/86 05/28 0954 84 148/86 05/28 0800 Room Air 05/28 0635 98.0 88 20 148/74 92 Room Air 05/28 0000 Room Air 05/27 2213 99.5 91 20 178/80 92 Room Air 05/27 2211 99.5 05/27 2012 99.4 05/27 2012 90 182/90 05/27 1630 98.9 89 20 170/84 94 Room Air 05/27 1628 Room Air 05/27 1610 99.0 84 24 183/79 95 Room Air Intake & Output 05/28 1600 05/28 0400 05/27 1600 05/27 0400 05/26 1600 05/26 0400 Intake Total 1600 1080 0 Output Total Balance 1600 1080 0 Intake, IV 880 600 Intake, Oral 720 480 0 Patient 132 lb 127 lb Weight Weight Reported by Patient Reported by Patient Measurement Method Physical Exam: Gen - OK appearing Head - NCAT Eyes - anicteric sclera, EOMI Neck - supple, no LAD CV - RRR, no m/r/g Chest - clear anteriorly, no w/r/r Abd - soft, NTND Upper ext - warm, no edema Lower ext - warm, no edema Skin - no rash or jaundice Neuro - AOX3, grossly nonfocal Results Pertinent Lab Results: Laboratory Tests 05/28 05/28 05/28 0637 0600 0600 Chemistry Sodium (137 - 145 mmol/L) 145 Potassium (3.5 - 5.1 mmol/L) 4.4 Chloride (98 - 107 mmol/L) 115 H Carbon Dioxide (22 - 30 mmol/L) 15 L Anion Gap (5 - 16) 15 BUN (7 - 17 mg/dL) 31 H Creatinine (0.5 - 1.0 mg/dL) 2.3 H Estimated GFR (>60 ml/min) 20 L BUN/Creatinine Ratio (7 - 25 %) 13.5 Hemoglobin A1c (4.2 - 5.8 %) 6.1 H Total Bilirubin (0.2 - 1.3 mg/dL) 0.1 L Cancelled Direct Bilirubin (< 0.4 mg/dL) 0.1 Cancelled AST (14 - 36 U/L) 45 H Cancelled ALT (9 - 52 U/L) 67 H Cancelled Alkaline Phosphatase (<127 U/L) 102 Cancelled Troponin I (< 0.11 ng/ml) 0.02 Total Protein (6.3 - 8.2 g/dL) 5.5 L Cancelled Albumin (3.5 - 5.0 g/dL) 2.8 L Cancelled Hematology CBC w Diff NO MAN DIFF REQ WBC (4.8 - 10.8 /CUMM) 10.9 H RBC (4.20 - 5.40 /CUMM) 2.76 L Hgb (12.0 - 16.0 G/DL) 8.5 L Hct (37 - 47 %) 24.9 L MCV (81.0 - 99.0 FL) 90.0 MCH (27.0 - 31.0 PG) 30.8 RDW (11.5 - 14.5 %) 13.3 Plt Count (130 - 400 /CUMM) 261 MPV (7.4 - 10.4 FL) 8.7 Gran % (42.2 - 75.2 %) 83.9 H Lymphocytes % (20.5 - 51.1 %) 10.0 L Monocytes % (1.7 - 9.3 %) 5.8 Eosinophils % (0 - 5 %) 0.2 Basophils % (0.0 - 2.0 %) 0.1 Absolute Granulocytes (1.4 - 6.5 /CUMM) 9.1 H Absolute Lymphocytes (1.2 - 3.4 /CUMM) 1.1 L Absolute Monocytes (0.10 - 0.60 /CUMM) 0.6 Absolute Eosinophils (0.0 - 0.7 /CUMM) 0 Absolute Basophils (0.0 - 0.2 /CUMM) 0 PUBS MCHC (33.0 - 37.0 G/DL) 34.2 Serology HIV 1&2 Ab Western Blot (NONREACTIVE) NONREACTIVE 05/28 05/27 05/27 0010 1453 1453 Chemistry Troponin I (< 0.11 ng/ml) < 0.01 Urines Urinalysis LIGHT H Urine Color (YEL,AMB,STR) YEL Urine Clarity (CLEAR) CLEAR Urine pH (5.0 - 8.0) 6.0 Ur Specific [place] (1.001 - 1.035) 1.020 Urine Protein (NEG,<30 MG/DL) 100 H Urine Ketones (NEG) NEG Urine Nitrite (NEG) NEG Urine Bilirubin (NEG) NEG Urine Urobilinogen (0.1 - 1.0 EU/dl) 0.2 Ur Leukocyte Esterase (NEG) NEG Ur Microscopic SEDIMENT EXAMINED Urine RBC (0 - 5 /HPF) RARE Urine WBC (0 - 2 /HPF) 3-5 H Ur Epithelial Cells (NONE,FEW) FEW Granular Casts (NONE /LPF) RARE H Urine Mucus (FEW,NONE) FEW Micro UA Comment Urine Hemoglobin (NEG) SMALL H Ur Random Creatinine (mg/dL) 33.4 Ur Random Sodium (30 - 90 mmol/L) 31 Ur Random Potassium (mmol/L) 11.4 Fraction Sodium Excret (<1% %) 1.7 H Urine Glucose (N MG/DL) NEG 05/27 05/27 1349 1124 Chemistry Sodium (137 - 145 mmol/L) 142 Potassium (3.5 - 5.1 mmol/L) 4.4 Chloride (98 - 107 mmol/L) 107 Carbon Dioxide (22 - 30 mmol/L) 16 L Anion Gap (5 - 16) 18 H BUN (7 - 17 mg/dL) 37 H Creatinine (0.5 - 1.0 mg/dL) 2.6 H Estimated GFR (>60 ml/min) 18 L BUN/Creatinine Ratio (7 - 25 %) 14.2 Glucose (65 - 99 mg/dL) 128 H Lactic Acid (0.7 - 2.1 mmol/L) Cancelled 1.1 Calcium (8.4 - 10.2 mg/dL) 9.1 Iron (37 - 170 ug/dL) 36 L TIBC (265 - 497 ug/dL) 257 L Ferritin (11.1 - 264 ng/mL) 379.0 H Total Bilirubin (0.2 - 1.3 mg/dL) 0.2 AST (14 - 36 U/L) 97 H ALT (9 - 52 U/L) 99 H Alkaline Phosphatase (<127 U/L) 124 Troponin I (< 0.11 ng/ml) < 0.01 Dzn-P-Ieimyibelro Pept (<125 pg/mL) 1540 H Total Protein (6.3 - 8.2 g/dL) 6.5 Albumin (3.5 - 5.0 g/dL) 3.6 Globulin (1.9 - 4.2 gm/dL) 2.9 Albumin/Globulin Ratio (1.1 - 2.2 %) 1.2 Vitamin B12 (239 - 931 pg/mL) > 1000 H Folate (2.76 - 20.0 ng/mL) 9.8 Coagulation D-Dimer High Sensitivty (0 - 243 ng/ml) 529 H Hematology CBC w Diff NO MAN DIFF REQ WBC (4.8 - 10.8 /CUMM) 10.3 RBC (4.20 - 5.40 /CUMM) 3.27 L Hgb (12.0 - 16.0 G/DL) 9.8 L Hct (37 - 47 %) 29.3 L MCV (81.0 - 99.0 FL) 89.5 MCH (27.0 - 31.0 PG) 30.0 RDW (11.5 - 14.5 %) 13.0 Plt Count (130 - 400 /CUMM) 316 MPV (7.4 - 10.4 FL) 8.2 Gran % (42.2 - 75.2 %) 81.1 H Lymphocytes % (20.5 - 51.1 %) 11.6 L Monocytes % (1.7 - 9.3 %) 6.4 Eosinophils % (0 - 5 %) 0.7 Basophils % (0.0 - 2.0 %) 0.2 Absolute Granulocytes (1.4 - 6.5 /CUMM) 8.3 H Absolute Lymphocytes (1.2 - 3.4 /CUMM) 1.2 Absolute Monocytes (0.10 - 0.60 /CUMM) 0.7 H Absolute Eosinophils (0.0 - 0.7 /CUMM) 0.1 Absolute Basophils (0.0 - 0.2 /CUMM) 0 PUBS MCHC (33.0 - 37.0 G/DL) 33.5 Imaging/Other Studies: CT IMPRESSION: 1. Multiple tree-in-bud nodules throughout both lungs, consistent with infectious bronchiolitis. Also, patchy peribronchial nodular opacities are present within lower lobes, compatible with bronchopneumonia. No pleural effusion. 2. Other findings in the chest include cardiomegaly, atherosclerotic disease of coronary arteries, mild ectasia of the ascending thoracic aorta (4 cm diameter) and moderate pericardial effusion. 3. Chronic left hydroureteronephrosis with left ureteral stent in place, and chronic dokvxxbf-rw-wikwwk atrophy of the left renal cortex. 4. Diffuse osteoporosis. Assessment/Plan Assessment/Recommendations Assessment: Stage IV CKD - Proteinuric - heavy in the past based on UA but not fully quantified not clinically nephrotic. Renal function has been slowly progressive. Given history, ddx would include Hep B related GN, diabetic nephropathy, 2/2 FSGS changes in the setting of reduced nephron mass (atrophic kidney), and/or hypertensive nephrosclerosis. Anemia Hg had been at goal for level of CKD. Iron stores borderline given hx of advanced CKD (target TSAT 30% and ferritin 500) may benefit from supplemental iron which can be given IV while in-house. Vit B12 and Folate levels OK. Met acidosis Primarily non-anion gap. No hx of diarrhea. Possibly 2/2 renal failure and saline administration. Would benefit from bicarb supplementation which can help stabilize renal function. HTN Agree with holding RAAS inhibition in current setting although should be resumed when clinically improved. 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 PNA On empiric abx. Hepatitis B - Positive viral load in 2013 - should recheck, especially in the setting of abnormal LFT's. Recommendations: -Uprot, UCr -Hep B SAg, cAb, sAb, and Viral load -Venofer 200mg every other day x5 doses -Start sodium bicarb 1300mg TID -Cont to hold RAAS inhibition - likely until discharge -Check Phos and PTH Pt should f/u in the office upon discharge for CKD care. Please call [phone] with ?'s
[2017-05-28 15:36] VITALS: BP 160/70
[2017-05-28 22:26] VITALS: BP 178/102
[2017-05-29 01:46] VITALS: BP 178/82
--- NOTE | 2017-05-29 05:53 | PN- Housestaff ---
MelvinSiobhan 05/29/17 0553: Subjective Follow-up For: Bronchopneumonia/pneumonia Pericardial effusion AUGUSTO Hep B carrier Tele-Events Since Last Visit: SR 80-89 No events Subjective: I have seen and examined the patient. chinees speaking, limited ROS. orverall feeling better regarding cough and SOB, no N/V/D no chest pain Review of Systems Constitutional: Reports: see HPI. Objective Last 24 Hrs of Vital Signs/I&O Vital Signs Date Time Temp Pulse Resp B/P B/P Pulse O2 O2 Flow FiO2 Mean Ox Delivery Rate 05/29 0623 98.4 92 20 184/90 93 Room Air 05/29 0146 178/82 05/29 0000 94 Room Air 05/28 2226 98.7 89 18 178/102 92 Room Air 05/28 1536 98.0 86 20 160/70 92 05/28 0957 84 148/86 05/28 0956 84 148/86 05/28 0954 84 148/86 05/28 0800 Room Air Intake & Output 05/29 0800 05/29 0000 05/28 1600 Intake Total 760 760 Output Total Balance 760 760 Intake, IV 120 280 Intake, Oral 640 480 Physical Exam General Appearance: Alert, Oriented X3, Cooperative Other Physical Findings: HEENT: Atraumatic, EOMI, Mucous Membr. moist/pink Cardiovascular: Regular Rate, Normal S1, Normal S2 Lungs: bilateral ronchi Abdomen: Soft, No Tenderness Current Medications: Current Medications Sig/Sanya Start time Last Medication Dose Route Stop Time Status Admin Acetaminophen 325 MG .STK-MED ONE 05/28 1708 DC PO 05/28 1709 Acetaminophen 325 MG .STK-MED ONE 05/28 1001 DC PO 05/28 1002 Acetaminophen 325 MG Q4P PRN 05/27 1800 AC 05/28 PO 2320 Amlodipine Besylate 10 MG DAILY 05/28 1000 AC 05/28 PO 0956 Azithromycin 500 MG DAILY 05/29 1000 AC Dextrose/Water 250 ML IV Azithromycin 500 MG Q24H 05/28 1445 DC Dextrose/Water 250 ML IV Azithromycin 500 MG Q24H 05/28 1000 DC 05/28 Sodium Chloride 250 ML IV 0956 Ceftriaxone Sodium 1,000 MG DAILY 05/28 1000 AC 05/28 IV 0956 Guaifenesin 10 ML Q4-6 PRN PRN 05/28 0230 AC 05/28 PO 2320 Heparin Sodium 5,000 UNIT Q8 05/27 2200 AC 05/28 (Porcine) SC 2321 Influenza Virus 0.5 ML .STK-MED ONE 05/28 1634 DC Vaccine IM 05/28 1635 Insulin Aspart 0 TIDAC 05/27 1700 AC SC Iron Sucrose 100 MG Q48H 05/28 1800 CAN Sodium Chloride 100 ML IV 06/05 181 Iron Sucrose 200 MG Q48H 05/28 1800 AC 05/28 Sodium Chloride 100 ML IV 06/05 181 1859 Nebivolol 5 MG DAILY 05/28 1000 AC 05/28 PO 0957 Non-Formulary 0 SEE ADMIN CRITERIA 05/28 1615 DC Medication ANY Sodium Bicarbonate 1,300 MG TID 05/28 1602 AC 05/28 PO 2320 Assessment/Plan Assessment: 81 y F presented with cough, wheezing and weakness PMH: chronic left hydronephrosis (w/ indwelling stent changed every 9month, last changed in Feb), HTN, HLip, DM VS, Ph Ex at admission: BP 17 5/79, CT 81, RR 20, no fever, saturating well in room air Labs at admission: Hgb 9.8, MCV 89, WBC 10.3, Gran 81%, bicarbonate 16, AG 18, BUN 27, CR 2.6, AST 97, ALT 99, proBNP 1540, d-dimer 529, UA granular cast Imagings at admission: * CXR: Moderate to marked cardiomegaly. Mild pulmonary venous congestion without overt edema. No radiographic evidence of pneumonia. * Chest/Abd CT: 1. Multiple tree-in-bud nodules throughout both lungs, consistent with infectious bronchiolitis. Also, patchy peribronchial nodular opacities are present within lower lobes, compatible with bronchopneumonia. No pleural effusion. 2. Other findings in the chest include cardiomegaly, atherosclerotic disease of coronary arteries, mild ectasia of the ascending thoracic aorta (4 cm diameter) and moderate pericardial effusion. 3. Chronic left hydroureteronephrosis with left ureteral stent in place, and chronic inrfrvru-nx-yrgrjm atrophy of the left renal cortex. 4. Diffuse osteoporosis. Patient was admitted to telemetry floor for management of following conditions: Cough and dyspnea Bronchopneumonia/pneumonia As CT scan revealed patient most likely has bronchopneumonia. - Continue IV ceftriaxone and azithromycin - Follow Samuels culture, blood culture X2 urine and sputum culture, urine Ag for pnuemococ and legionella -TRC nebs Mod pericardial effusion- evaluation of CHF was shown in CT scan Echocardiography 05/27/17: 1. Moderate aortic sclerosis is present with no valvular stenosis or insufficiency. Minimal enlargement of the ascending aorta is present 2. Mitral leaflet thickening is present with mild to moderate mitral insufficiency and mild to moderate left atrial enlargement. 3. A small to moderate size circumferential pericardial effusion is present which is most prominent anteriorly and toward the apex. The effusion is hemodynamically insignificant 5. The left ventricular chamber size is normal with mild concentric hypertrophy and hyperdynamic systolic function with an ejection fraction of greater than 75% and no resting wall motion abnormalities. 6. Right heart structures are grossly normal. Mild tricuspid insufficiency is present with a right ventricular systolic pressure 36 mmHg. 7. At the present time, there are no anatomic or Doppler findings present to suggest any hemodynamic significance to the pericardial effusion present. - I and O, vital signs and weight everyday - cardio consult appreciated - Limited echo on Wednesday AUGUSTO on CKD -Creatinine relatively improved to her baseline. -today lab pending -nephrology recommanded hep B panel, Urine cr/pr work up as well -on bicardb TID Anemia Hg 9.8, normal MCV, could be related to kidney disease, aplastic related to age, chronic disease - iron panel low iron low TIBC -venofer started Backpain management of pain with low dose tynelol - tynelol for pain Chronic medical conditions, DM, HTN, HLP, Hep B carrier transaminitis most likely related to Hep B - Hold statin due to increased LFt for now - Hold benicar due to Cr - incerase beta kerri to 10 MG daily and Amlodipine Diabetic diet, 2 g Na and fluid restriction DVT mechanical and phramacological FC Problem List: 1. Anemia 2. Pneumonia 3. Pericardial effusion Pain Ratin Pain Location: back Pain Goal: Pain 4 or less Pain Plan: same Tomorrow's Labs & Rationales: cbc Darrell Reyes MD 05/29/17 1013: Attending MD Review Statement Attending Statement Attending Statement: examined this patient, discuss w/resident/PA/PATIENT SUPPORT TECH, agreed w/resident/PA/PATIENT SUPPORT TECH, discussed with family, reviewed EMR data (avail), discussed with nursing, discussed with case mgmt, reviewed images, amended to note Attending Assessment/Plan: Impression 81 year old woman * Multiple tree-in-bud nodules throughout both lungs, consistent with infectious bronchiolitis. Also, patchy peribronchial nodular opacities are present within lower lobes, compatible with bronchopneumonia. No pleuraleffusion. - CAP * cardiomegaly, atherosclerotic disease * mild ectasia of the ascending thoracic aorta (4 cm diameter) and moderate pericardial effusion. * Chronic left hydroureteronephrosis with left ureteral stent in place, and * Diffuse osteoporosis * stage IV CKD * anemia Plan -f/u cardiology and specifically will ask regarding timing of next limited ECHO for pericardial effusion monitoring -cont zithromax, ceftriaxone -f/u nephrology recommendations -metformin/ACEI held -monitor creatinine -wheezing significantly, mild respiratory distress - this can be secondary to infectious reactive airways vs excess fluid -repeat cxr today - portable -give solumedrol 40mg iv q12h -?if beta kerri contributing to worsened respiratory status -TRC order DVT prophylaxis at all times
[2017-05-29 06:23] VITALS: BP 184/90
[2017-05-29 07:57] VITALS: BP 168/78
[2017-05-29 08:26] LABS: ABSOLUTE BASOPHIL COUNT 0 /CUMM (0.0-0.2); ABSOLUTE EOSINOPHIL COUNT 0.1 /CUMM (0.0-0.7); ABSOLUTE GRANULOCYTE CT 8.2 /CUMM (1.4-6.5); ABSOLUTE LYMPH COUNT 1.3 /CUMM (1.2-3.4); ABSOLUTE MONOCYTE COUNT 0.6 /CUMM (0.10-0.60); BASOPHIL % 0.3 % (0.0-2.0); EOSINOPHIL % 0.5 % (0-5); GRANULOCYTE % 80.9 % (42.2-75.2); MEAN CORPUSCULAR HGB 30.1 PG (27.0-31.0); MEAN CORPUSCULAR HGB CONC 33.6 G/DL (33.0-37.0); MEAN CORPUSCULAR VOLUME 89.6 FL (81.0-99.0); MEAN PLATELET VOLUME 8.1 FL (7.4-10.4); PLATELET COUNT 266 /CUMM (130-400); RBC DISTRIBUTION WIDTH 13.7 % (11.5-14.5); RED BLOOD CELL CT 2.79 /CUMM (4.20-5.40); WHITE BLOOD CELL COUNT 10.1 /CUMM (4.8-10.8)
--- NOTE | 2017-05-29 14:59 | RADIOLOGY REPORT ---
EXAMINATION: XR PORTABLE CHEST CLINICAL INFORMATION: Pulmonary edema COMPARISON: 05/27/2017 CT scan TECHNIQUE: Portable AP upright view of the chest was obtained. FINDINGS: There is severe enlargement of the cardiac silhouette. Mild pulmonary venous congestion is noted. There is mild increased interstitial markings bilaterally and diffusely which can represent an interstitial process such as pneumonia. Blunting of the left costophrenic angle noted, represent a small left-sided pleural effusion. No pneumothorax. IMPRESSION: Severe enlargement of the cardiac silhouette can represent cardiomegaly and/or pericardial effusion. Mild pulmonary venous congestion. Increased interstitial markings can represent interstitial pneumonia. Clinical correlation is suggested.
[2017-05-29 17:58] VITALS: BP 150/66
--- NOTE | 2017-05-29 19:42 | PN- Cardiology ---
Subjective Subjective: Resting and without complaints. Objective Vital Signs and I&Os Vital Signs Date Time Temp Pulse Resp B/P B/P Pulse O2 O2 Flow FiO2 Mean Ox Delivery Rate 05/29 1758 98.2 96 20 150/66 93 05/29 1508 92 Room Air 05/29 1500 Room Air 05/29 0926 92 168/78 05/29 0922 92 168/78 05/29 0800 Room Air 05/29 0757 168/78 05/29 0623 98.4 92 20 184/90 93 Room Air 05/29 0146 178/82 05/29 0000 94 Room Air 05/28 2226 98.7 89 18 178/102 92 Room Air Intake & Output 05/29 1600 05/29 0800 05/29 0000 05/28 1600 05/28 0800 05/28 0000 Intake Total 600 200 760 320 761 0171 Output Total Balance 600 200 760 776 484 4239 Intake, IV 300 120 280 600 600 Intake, Oral 300 200 640 480 240 480 Patient 132 lb Weight Weight Reported by Patient Measurement Method Current Medications: Current Medications Sig/Sanya Start time Last Medication Dose Route Stop Time Status Admin Acetaminophen 325 MG .STK-MED ONE 05/29 09 DC PO 05/29 0933 Acetaminophen 325 MG .STK-MED ONE 05/28 2328 DC PO 05/28 2329 Acetaminophen 325 MG Q4P PRN 05/27 1800 AC 05/29 PO 1714 Albuterol Sulfate 3 ML TID 05/29 1600 AC 05/29 INH 1507 Amlodipine Besylate 10 MG DAILY 05/28 1000 AC 05/29 PO 0922 Azithromycin 500 MG DAILY 05/29 1000 AC 05/29 Dextrose/Water 250 ML IV 0922 Ceftriaxone Sodium 1,000 MG DAILY 05/28 1000 AC 05/29 IV 0923 Cholecalciferol 2,000 IU DAILY 05/29 1000 AC 05/29 PO 0922 Guaifenesin 10 ML .STK-MED ONE 05/29 0932 DC PO 05/29 0933 Guaifenesin 10 ML Q4-6 PRN PRN 05/28 0230 AC 05/29 PO 0932 Heparin Sodium 5,000 UNIT Q8 05/27 2200 AC 05/29 (Porcine) SC 1512 Insulin Aspart 0 TIDAC 05/27 1700 AC 05/29 SC 1706 Iron Sucrose 200 MG Q48H 05/28 1800 AC 05/28 Sodium Chloride 100 ML IV 06/05 1814 1859 Methylprednisolone 40 MG Q12 05/29 1025 AC 05/29 IV 1147 Nebivolol 10 MG DAILY 05/29 1000 AC 05/29 PO 0926 Nebivolol 5 MG DAILY 05/28 1000 DC 05/28 PO 0957 Sodium Bicarbonate 1,300 MG TID 05/28 1602 AC 05/29 PO 1512 Results Last 48 Hrs of Labs/Mics: Laboratory Tests 05/29/17 0615: Anion Gap 14, Estimated GFR 19 L, BUN/Creatinine Ratio 15.4, CBC w Diff NO MAN DIFF REQ, RBC 2.79 L, MCV 89.6, MCH 30.1, RDW 13.7, MPV 8.1, Gran % 80.9 H, Lymphocytes % 12.4 L, Monocytes % 5.9, Eosinophils % 0.5, Basophils % 0.3, Absolute Granulocytes 8.2 H, Absolute Lymphocytes 1.3, Absolute Monocytes 0.6, Absolute Eosinophils 0.1, Absolute Basophils 0, PUBS MCHC 33.6 05/28/17 1748: Hep B DNA copies/mL Pending, Hep B DNA (Units/mL) Pending 05/28/17 0637: Anion Gap 15, Estimated GFR 20 L, BUN/Creatinine Ratio 13.5, Phosphorus 5.3 H, Total Bilirubin 0.1 L, Direct Bilirubin 0.1, AST 45 H, ALT 67 H, Alkaline Phosphatase 102, Troponin I 0.02, Total Protein 5.5 L, Albumin 2.8 L, 25-OH Vitamin D Total 15.3 L, PTH Intact 77.9, CBC w Diff NO MAN DIFF REQ, RBC 2.76 L, MCV 90.0, MCH 30.8, RDW 13.3, MPV 8.7, Gran % 83.9 H, Lymphocytes % 10.0 L, Monocytes % 5.8, Eosinophils % 0.2, Basophils % 0.1, Absolute Granulocytes 9.1 H, Absolute Lymphocytes 1.1 L, Absolute Monocytes 0.6, Absolute Eosinophils 0, Absolute Basophils 0, PUBS MCHC 34.2, Hep Bs Antigen REACTIVE H, Hep Bs Antibody NONREACTIVE, Hep B Core IgM Ab Conf NONREACTIVE, HIV 1&2 Ab Western Blot NONREACTIVE 05/28/17 0600: Hemoglobin A1c 6.1 H 05/28/17 0600: Total Bilirubin Cancelled, Direct Bilirubin Cancelled, AST Cancelled, ALT Cancelled, Alkaline Phosphatase Cancelled, Total Protein Cancelled, Albumin Cancelled 05/28/17 0010: Troponin I < 0.01 Recent Imaging Studies: CXR 05/29/2017: Severe enlargement of the cardiac silhouette can represent cardiomegaly and/or pericardial effusion. Mild pulmonary venous congestion. Increased interstitial markings can represent interstitial pneumonia. Clinical correlation is suggested. Assessment/Plan Assessment/Plan [id number] f w/ hx HTN, HLD, DM, CAD w/ coronary Ca++, AUGUSTO, anemia, transaminitis w/ abnl CT chest c/w ? PNA & moderate sized pericardial effusion w/o significant hemodynamic compromise by echocardiogram. Recommendations: * Continue on telemetry for now. * Limited echocardiogram to reassess size of pericardial effusion and exclude hemogram at compromise. * Follow up with nephrology recommendations. * Antimicrobial therapy as per hospitalist. * DVT prophylaxis. Continue telemetry? Yes
[2017-05-29 23:00] VITALS: BP 152/78
[2017-05-30 06:43] VITALS: BP 162/82
[2017-05-30 08:18] LABS: ABSOLUTE BASOPHIL COUNT 0 /CUMM (0.0-0.2); ABSOLUTE EOSINOPHIL COUNT 0 /CUMM (0.0-0.7); ABSOLUTE GRANULOCYTE CT 8.3 /CUMM (1.4-6.5); ABSOLUTE LYMPH COUNT 0.9 /CUMM (1.2-3.4); ABSOLUTE MONOCYTE COUNT 0.1 /CUMM (0.10-0.60); BASOPHIL % 0 % (0.0-2.0); EOSINOPHIL % 0 % (0-5); HEMATOCRIT 24.5 % (37-47); MEAN CORPUSCULAR HGB CONC 33.8 G/DL (33.0-37.0); MEAN CORPUSCULAR VOLUME 88.8 FL (81.0-99.0); MEAN PLATELET VOLUME 8.1 FL (7.4-10.4); PLATELET COUNT 292 /CUMM (130-400); RBC DISTRIBUTION WIDTH 13.9 % (11.5-14.5); RED BLOOD CELL CT 2.76 /CUMM (4.20-5.40); WHITE BLOOD CELL COUNT 9.4 /CUMM (4.8-10.8)
[2017-05-30 08:47] LABS: GRANULOCYTE % 88.7 % (42.2-75.2)
--- NOTE | 2017-05-30 08:49 | PN- Housestaff ---
Shirlene De Guzman MD,Ami 05/30/17 0849: Subjective Follow-up For: Bronchopneumonia/pneumonia Pericardial effusion AUGUSTO Hep B carrier Tele-Events Since Last Visit: SR 87-96 Subjective: Patient visited today, was sitting comfortably in no acute distress, using wet cloth to clean her feet! much improved generally. Patient is estonian speaking, had some SOB earlier today and steroids were administered which resulted in significant improvement is symptoms. will get and repeated CXR. No fever or chills, no chest pain, no other events. Review of Systems Constitutional: Reports: see HPI. Objective Last 24 Hrs of Vital Signs/I&O Vital Signs Date Time Temp Pulse Resp B/P B/P Pulse O2 O2 Flow FiO2 Mean Ox Delivery Rate 05/30 1735 98.6 90 20 154/66 97 05/30 0947 99.1 93 18 162/82 05/30 0947 99.1 93 18 162/82 05/30 0801 93 Room Air 05/30 0800 95 Room Air Room Air 05/30 0643 99.1 93 18 162/82 95 Room Air 05/30 0000 95 Room Air 05/29 2300 98.5 101 20 152/78 95 Room Air 05/29 2018 98 Room Air Intake & Output 05/30 1600 05/30 0800 05/30 0000 Intake Total 880 200 Output Total Balance 880 200 Intake, IV 280 Intake, Oral 600 200 Physical Exam General Appearance: Alert, Oriented X3, Cooperative, No Acute Distress Skin: No Significant Lesion Skin Temp/Moisture Exam: Warm/Dry HEENT: Atraumatic, EOMI, Mucous Membr. moist/pink Neck: No JVD Cardiovascular: Regular Rate, Normal S1, Normal S2, slight muffled hear sounds Lungs: improved wheezing, but still some wheezing and crackles bilaterally Abdomen: Soft, No Tenderness Extremities: No Edema Current Medications: Current Medications Sig/Sanya Start time Last Medication Dose Route Stop Time Status Admin Acetaminophen 325 MG Q4P PRN 05/27 1800 AC 05/29 PO 1714 Albuterol Sulfate 3 ML TID 05/29 1600 AC 05/30 INH 0759 Amlodipine Besylate 10 MG DAILY 05/28 1000 AC 05/30 PO 0947 Azithromycin 500 MG DAILY 05/29 1000 AC 05/30 Dextrose/Water 250 ML IV 0948 Ceftriaxone Sodium 1,000 MG DAILY 05/28 1000 AC 05/30 IV 0948 Cholecalciferol 2,000 IU DAILY 05/29 1000 AC 05/30 PO 0947 Guaifenesin 10 ML .STK-MED ONE 05/30 0831 DC PO 05/30 0832 Guaifenesin 10 ML Q4-6 PRN PRN 05/28 0230 AC 05/30 PO 1254 Heparin Sodium 5,000 UNIT Q8 05/27 2200 AC 05/30 (Porcine) SC 1437 Insulin Aspart 0 TIDAC 05/27 1700 AC 05/30 SC 1207 Iron Sucrose 200 MG Q48H 05/28 1800 AC 05/28 Sodium Chloride 100 ML IV 06/05 1814 1859 Methylprednisolone 40 MG Q12 05/29 1025 AC 05/30 IV 0948 Nebivolol 10 MG DAILY 05/29 1000 AC 05/30 PO 0947 Sodium Bicarbonate 1,300 MG TID 05/28 1602 AC 05/30 PO 1543 Last 24 Hrs of Lab/Vishnu Results Last 24 Hrs of Labs/Mics: Laboratory Tests 05/30/17 0625: Anion Gap 16, Estimated GFR 17 L, BUN/Creatinine Ratio 17.8, CBC w Diff NO MAN DIFF REQ, RBC 2.76 L, MCV 88.8, MCH 30.0, RDW 13.9, MPV 8.1, Gran % 88.7 H, Lymphocytes % 10.0 L, Monocytes % 1.3 L, Eosinophils % 0, Basophils % 0, Absolute Granulocytes 8.3 H, Absolute Lymphocytes 0.9 L, Absolute Monocytes 0.1, Absolute Eosinophils 0, Absolute Basophils 0, PUBS MCHC 33.8 Assessment/Plan Assessment: 81 y F presented with cough, wheezing and weakness PMH: chronic left hydronephrosis (w/ indwelling stent changed every 9month, last changed in Feb), HTN, HLip, DM VS, Ph Ex at admission: BP 17 5/79, PA 81, RR 20, no fever, saturating well in room air Labs at admission: Hgb 9.8, MCV 89, WBC 10.3, Gran 81%, bicarbonate 16, AG 18, BUN 27, CR 2.6, AST 97, ALT 99, proBNP 1540, d-dimer 529, UA granular cast Imagings at admission: * CXR: Moderate to marked cardiomegaly. Mild pulmonary venous congestion without overt edema. No radiographic evidence of pneumonia. * Chest/Abd CT: 1. Multiple tree-in-bud nodules throughout both lungs, consistent with infectious bronchiolitis. Also, patchy peribronchial nodular opacities are present within lower lobes, compatible with bronchopneumonia. No pleural effusion. 2. Other findings in the chest include cardiomegaly, atherosclerotic disease of coronary arteries, mild ectasia of the ascending thoracic aorta (4 cm diameter) and moderate pericardial effusion. 3. Chronic left hydroureteronephrosis with left ureteral stent in place, and chronic [id number] atrophy of the left renal cortex. 4. Diffuse osteoporosis. Patient was admitted to telemetry floor for management of following conditions: Cough and dyspnea Bronchopneumonia/pneumonia As CT scan revealed patient most likely has bronchopneumonia. CXR repeated today 05/30/17: Severe enlargement of the cardiac silhouette can represent cardiomegaly and/or pericardial effusion. Mild pulmonary venous congestion. Increased interstitial markings can represent interstitial pneumonia. Clinical correlation is suggested. - Continue IV ceftriaxone and azithromycin - initially negative but continue to follow Samuels culture, blood culture X2 urine and sputum culture, urine Ag for pnuemococ and legionella -TRC nebs Mod pericardial effusion- evaluation of CHF was shown in CT scan Echocardiography 05/27/17: 1. Moderate aortic sclerosis is present with no valvular stenosis or insufficiency. Minimal enlargement of the ascending aorta is present 2. Mitral leaflet thickening is present with mild to moderate mitral insufficiency and mild to moderate left atrial enlargement. 3. A small to moderate size circumferential pericardial effusion is present which is most prominent anteriorly and toward the apex. The effusion is hemodynamically insignificant 5. The left ventricular chamber size is normal with mild concentric hypertrophy and hyperdynamic systolic function with an ejection fraction of greater than 75% and no resting wall motion abnormalities. 6. Right heart structures are grossly normal. Mild tricuspid insufficiency is present with a right ventricular systolic pressure 36 mmHg. 7. At the present time, there are no anatomic or Doppler findings present to suggest any hemodynamic significance to the pericardial effusion present. - I and O, vital signs and weight everyday - cardio consult appreciated - Follow repeated echo AUGUSTO on CKD -Creatinine relatively improved to her baseline. Cr today 2.7 -nephrology recommanded hep B panel, Urine cr/pr work up as well -on bicardb TID Anemia Hg 9.8, normal MCV, could be related to kidney disease, aplastic related to age, chronic disease - iron panel low iron low TIBC -venofer started Backpain management of pain with low dose tynelol - tynelol for pain Chronic medical conditions, DM, HTN, HLP, Hep B carrier transaminitis most likely related to Hep B - Hold statin due to increased LFt for now - Hold benicar due to Cr - incerase beta kerri to 10 MG daily and Amlodipine Diabetic diet, 2 g Na and fluid restriction DVT mechanical and phramacological FC Problem List: 1. Bronchopneumonia 2. Pericardial effusion Pain Ratin Pain Location: none Pain Goal: Pain 4 or less Pain Plan: Continue current plan Tomorrow's Labs & Rationales: CBC BEP Darrell Kan MD 05/30/17 1044: Attending MD Review Statement Attending Statement Attending MD Statement: examined this patient, discuss w/resident/PA/RADIOLOGICAL EQUIPMENT SPECIALIST, agreed w/resident/PA/RADIOLOGICAL EQUIPMENT SPECIALIST, discussed with family, reviewed EMR data (avail), discussed with nursing, discussed with case mgmt, reviewed images, amended to note Attending Assessment/Plan: Impression 81 year old woman * Multiple tree-in-bud nodules throughout both lungs, consistent with infectious bronchiolitis. Also, patchy peribronchial nodular opacities are present within lower lobes, compatible with bronchopneumonia. No pleuraleffusion. - CAP * cardiomegaly, atherosclerotic disease * mild ectasia of the ascending thoracic aorta (4 cm diameter) and moderate pericardial effusion. * Chronic left hydroureteronephrosis with left ureteral stent in place, and * Diffuse osteoporosis * stage IV CKD * anemia Plan -f/u cardiology, s/p limited ECHO, f/u results for pericardial effusion monitoring -cont zithromax, ceftriaxone -f/u nephrology recommendations -metformin/ACEI held -monitor creatinine -wheezing improved, no further respiratory distress - this can be secondary to infectious reactive airways vs excess fluid -repeat cxr today - portable -continue solumedrol 40mg iv q12h - then as of 05/31 if no events given prednisone 40mg x 3 days -?if beta kerri contributing to worsened respiratory status -TRC order DVT prophylaxis at all times
[2017-05-30 17:35] VITALS: BP 154/66
[2017-05-30 21:33] VITALS: BP 158/88
--- NOTE | 2017-05-30 22:50 | RADIOLOGY REPORT ---
EXAMINATION: XR PORTABLE CHEST CLINICAL INFORMATION: Shortness of breath and wheezing. COMPARISON: Chest radiograph dated 05/29/2017. TECHNIQUE: Portable frontal view of the chest was obtained. FINDINGS: The lungs are clear. No pleural effusion. Stable cardiomegaly. Pulmonary vasculature is within normal limits No acute osseous findings. IMPRESSION: Stable cardiomegaly. No evidence of pleural effusion or acute airspace consolidation.
[2017-05-31 05:52] LABS: ABSOLUTE BASOPHIL COUNT 0 /CUMM (0.0-0.2); ABSOLUTE EOSINOPHIL COUNT 0 /CUMM (0.0-0.7); ABSOLUTE GRANULOCYTE CT 8.9 /CUMM (1.4-6.5); ABSOLUTE MONOCYTE COUNT 0.2 /CUMM (0.10-0.60); BASOPHIL % 0 % (0.0-2.0); EOSINOPHIL % 0 % (0-5); MEAN CORPUSCULAR HGB CONC 33.8 G/DL (33.0-37.0); MEAN CORPUSCULAR VOLUME 88.8 FL (81.0-99.0); MEAN PLATELET VOLUME 8.1 FL (7.4-10.4); PLATELET COUNT 275 /CUMM (130-400); RBC DISTRIBUTION WIDTH 13.8 % (11.5-14.5); RED BLOOD CELL CT 2.71 /CUMM (4.20-5.40); WHITE BLOOD CELL COUNT 10.1 /CUMM (4.8-10.8)
[2017-05-31 06:13] LABS: GRANULOCYTE % 88.3 % (42.2-75.2)
[2017-05-31 07:14] VITALS: BP 162/82
--- NOTE | 2017-05-31 08:02 | ECHOCARDIOGRAM REPORT ---
Lolita SALAZAR Age: 81 : 1935 Gender: F Exam Date: 05/30/2017 08:59 Exam Location: [address] Ht (in): 61 Wt (lb): 131 BSA: 1.61 BP: 161 / 82 Ordering Physician: Kwasi Spann MD Referring Physician: Gabrielle Jaimes MD Technologist: Sneha Morales [facility] Room Number: [id number] Indications: PERICARDIAL EFFUSION Rhythm: Sinus Technical Quality: Fair FINDINGS Left Ventricle Normal size left ventricle. Left ventricular wall thickness increased. Normal left ventricular ejection fraction estimated at 65-70%. Right Ventricle Right ventricle not well visualized, grossly normal. Right Atrium Right atrium not well visualized, grossly normal. Left Atrium Mild left atrial dilatation. Mitral Valve Mitral valve thickened. Aortic Valve Trileaflet aortic valve. Diffuse thickening (sclerosis) of the aortic valve cusps without reduced excursion. No aortic stenosis. Tricuspid Valve Tricuspid valve not well visualized, grossly normal. Mild tricuspid regurgitation. Right ventricular systolic pressure estimated at 40 mmHg. Pulmonic Valve Pulmonic valve not well visualized. Pericardium Moderate pericardial effusion. Great Vessels Aortic root and proximal ascending aorta not well visualized, grossly normal. CONCLUSIONS 1. THis was a limited followup study performed to reasssess the size and signiificance of the pericardial effusion. 2. Aortic sclerosis is present. 3. Mitral leaflet thickening is present. 4. A small to moderate sized pericardial effusion is present which is hemodynamically insignificant 5. The left ventricular chamber size is normal with concentric LVH and hyperdynamic systolic function . 6. Mild tricuspid insufficiency is present with no significant pulmonary hypertension. 7. Compared to the prior study, there has been no significant change. Gabrielle Jaimes M.D. (Electronically Signed) Final Date: 31 May 2017 08:01 MEASUREMENTS (Male / Female) Normal Values DOPPLER TR Peak Velocity 326.0 cm/s TR Peak Gradient 42.5 mmHg Right Atrial Pressure 5.0 mmHg Pulmonary Artery Systolic Pressu 47.5 mmHg Right Ventricular Systolic Press 47.5 mmHg
--- NOTE | 2017-05-31 08:27 | PN- Housestaff ---
Shirlene De Guzman MD,[facility] 05/31/17 08: Subjective Follow-up For: Bronchopneumonia/pneumonia Pericardial effusion [place]UG[place]O Hep B carrier Tele-Events Since Last Visit: SR 78-85 Subjective: Patient visited today, Citizen Of [place] speaking was lying in bed comfortably in no acute distress, was alert and oriented. [id number] at the bedside. Improved symptoms, but still has some shortness of breathing. No fever or chills, no chest pain, no other events. Repeated echo revealed no change in effusion with no significant effect in hemodynamic status. We will start clonidine twice a day today to wean off metoprolol (considering wheezing). We will change to by mouth azithromycin. Creatinine increasing, contacted nephrology to advise regarding increased creatinine. Review of Systems Constitutional: Reports: see HPI. Objective Last 24 Hrs of Vital Signs/I&O Vital Signs Date Time Temp Pulse Resp B/P B/P Pulse O2 O2 Flow FiO2 Mean Ox Delivery Rate 05/31 1435 98.8 84 18 154/78 96 Room Air 05/31 0929 83 162/82 05/31 0929 83 162/82 05/31 0840 94 Room Air 05/31 0800 Room Air 05/31 0714 98.3 83 18 162/82 95 Room Air 05/30 2133 97.5 91 18 158/88 94 05/30 1853 98 Room Air 05/30 1735 98.6 90 20 154/66 97 Intake & Output 05/31 1600 05/31 0800 05/31 0000 Intake Total 921 100 100 Output Total Balance 921 100 100 Intake, IV 281 Intake, Oral 640 100 100 Physical Exam General Appearance: Alert, Oriented X3, Cooperative, No Acute Distress Skin: No Significant Lesion Skin Temp/Moisture Exam: Warm/Dry Sepsis Skin Exam (color): Normal for Ethnicity HEENT: Atraumatic, EOMI, Mucous Membr. moist/pink Cardiovascular: Regular Rate, Normal S1, Normal S2 Lungs: wheezing Abdomen: Soft, No Tenderness Neurological: Normal Speech Extremities: No Edema Current Medications: Current Medications Sig/Sanya Start time Last Medication Dose Route Stop Time Status Admin Acetaminophen 325 MG Q4P PRN 05/27 1800 AC 05/29 PO 1714 Albuterol Sulfate 3 ML TID 05/29 1600 AC 05/31 INH 1325 Amlodipine Besylate 10 MG DAILY 05/28 1000 AC 05/31 PO 0929 Azithromycin 250 MG DAILY 06/01 1000 AC PO Azithromycin 500 MG DAILY 05/29 1000 DC 05/31 Dextrose/Water 250 ML IV 0929 Ceftriaxone Sodium 1,000 MG DAILY 05/28 1000 AC 05/31 IV 0929 Cholecalciferol 2,000 IU DAILY 05/29 1000 AC 05/31 PO 0930 Clonidine 0.1 MG BID 05/31 1418 AC PO Guaifenesin 10 ML .STK-MED ONE 05/30 1828 DC PO 05/30 1829 Guaifenesin 10 ML Q4-6 PRN PRN 05/28 0230 AC 05/31 PO 0938 Guaifenesin/ 10 ML .STK-MED ONE 05/30 1551 DC Dextromethorphan PO 05/30 1552 Heparin Sodium 5,000 UNIT Q8 05/27 2200 AC 05/31 (Porcine) SC 1449 Insulin Aspart 0 TIDAC 05/27 1700 AC 05/31 SC 0929 Iron Sucrose 200 MG Q48H 05/28 1800 AC 05/30 Sodium Chloride 100 ML IV 06/05 1814 1830 Methylprednisolone 40 MG Q12 05/29 1025 DC 05/31 IV 0929 Nebivolol 10 MG DAILY 05/29 1000 AC 05/31 PO 0929 Polyethylene Glycol 17 GM DAILY 05/31 0945 AC 05/31 PO 1149 Prednisone 40 MG DAILY 06/01 1000 AC PO Sodium Bicarbonate 1,300 MG TID 05/28 1602 AC 05/31 PO 0930 Last 24 Hrs of Lab/Vishnu Results Last 24 Hrs of Labs/Mics: Laboratory Tests 05/31/17 0515: Anion Gap 15, Estimated GFR 14 L, BUN/Creatinine Ratio 20.6, CBC w Diff NO MAN DIFF REQ, RBC 2.71 L, MCV 88.8, MCH 30.0, RDW 13.8, MPV 8.1, Gran % 88.3 H, Lymphocytes % 9.9 L, Monocytes % 1.8, Eosinophils % 0, Basophils % 0, Absolute Granulocytes 8.9 H, Absolute Lymphocytes 1.0 L, Absolute Monocytes 0.2, Absolute Eosinophils 0, Absolute Basophils 0, PUBS MCHC 33.8 Assessment/Plan Assessment: 81 y F presented with cough, wheezing and weakness PMH: chronic left hydronephrosis (w/ indwelling stent changed every 9month, last changed in Feb), HTN, HLip, DM VS, Ph Ex at admission: BP 17 5/79, NC 81, RR 20, no fever, saturating well in room air Labs at admission: Hgb 9.8, MCV 89, WBC 10.3, Gran 81%, bicarbonate 16, AG 18, BUN 27, CR 2.6, AST 97, ALT 99, proBNP 1540, d-dimer 529, UA granular cast Imagings at admission: * CXR: Moderate to marked cardiomegaly. Mild pulmonary venous congestion without overt edema. No radiographic evidence of pneumonia. * Chest/Abd CT: 1. Multiple tree-in-bud nodules throughout both lungs, consistent with infectious bronchiolitis. Also, patchy peribronchial nodular opacities are present within lower lobes, compatible with bronchopneumonia. No pleural effusion. 2. Other findings in the chest include cardiomegaly, atherosclerotic disease of coronary arteries, mild ectasia of the ascending thoracic aorta (4 cm diameter) and moderate pericardial effusion. 3. Chronic left hydroureteronephrosis with left ureteral stent in place, and chronic [id number] atrophy of the left renal cortex. 4. Diffuse osteoporosis. Patient was admitted to telemetry floor for management of following conditions: Cough and dyspnea Bronchopneumonia/pneumonia As CT scan revealed patient most likely has bronchopneumonia. CXR repeated today 05/30/17: Severe enlargement of the cardiac silhouette can represent cardiomegaly and/or pericardial effusion. Mild pulmonary venous congestion. Increased interstitial markings can represent interstitial pneumonia. Clinical correlation is suggested. - Continue IV ceftriaxone and azithromycin - initially negative but continue to follow Samuels culture, blood culture X2 urine and sputum culture, urine Ag for pnuemococ and legionella -TRC nebs Mod pericardial effusion- evaluation of CHF was shown in CT scan Echocardiography 05/27/17: 1. Moderate aortic sclerosis is present with no valvular stenosis or insufficiency. Minimal enlargement of the ascending aorta is present 2. Mitral leaflet thickening is present with mild to moderate mitral insufficiency and mild to moderate left atrial enlargement. 3. A small to moderate size circumferential pericardial effusion is present which is most prominent anteriorly and toward the apex. The effusion is hemodynamically insignificant 5. The left ventricular chamber size is normal with mild concentric hypertrophy and hyperdynamic systolic function with an ejection fraction of greater than 75% and no resting wall motion abnormalities. 6. Right heart structures are grossly normal. Mild tricuspid insufficiency is present with a right ventricular systolic pressure 36 mmHg. 7. At the present time, there are no anatomic or Doppler findings present to suggest any hemodynamic significance to the pericardial effusion present. repeated Echo showed no significant change or effect on HD status. - I and O, vital signs and weight everyday - cardio consult appreciated [place]UG[place]O on CKD -Creatinine relatively improved to her baseline. Cr today 3.2 -nephrology recommanded hep B panel, Urine cr/pr work up as well -on bicardb TID - follow nephro as contacted Anemia Hg 9.8, normal MCV, could be related to kidney disease, aplastic related to age, chronic disease - iron panel low iron low TIBC -venofer started Backpain management of pain with low dose tynelol - tynelol for pain Chronic medical conditions, DM, HTN, HLP, Hep B carrier transaminitis most likely related to Hep B - Hold statin due to increased LFt for now - Hold benicar due to Cr - incerase beta kerri to 10 MG daily and Amlodipine - start Cloniding 0.1 daily - planning to DC beta blockers considering wheezing Diabetic diet, 2 g Na and fluid restriction DVT mechanical and phramacological FC Problem List: 1. Pericardial effusion 2. Bronchopneumonia 3. Acute on chronic renal failure Pain Ratin Pain Location: none Pain Goal: Pain 4 or less Pain Plan: Conitnue current plan Tomorrow's Labs & Rationales: CBC BEP Ricky Weberperla 05/31/17 1715: Attending MD Review Statement Attending Statement Attending MD Statement: examined this patient, discuss w/resident/PA/EVENT SALES MANAGER, agreed w/resident/PA/EVENT SALES MANAGER, reviewed EMR data (avail), discussed with nursing, discussed with case mgmt Attending Assessment/Plan: Infectious brochiolitis and bronchopneumonia- pulmonary following . dc iv steroids and switch to po prednisone short course . on ceftriaxone and zithromax. Pericardial effusion- repeat limited echo showing no worsening and no change from prior echo. cont to monitor. if stable tomorrow will plan to dc her on po abx.
--- NOTE | 2017-05-31 10:16 | PN- Pulmonary ---
Subjective HPI/Critical Care Issues: Patient seen and examined this morning. She appears to be feeling much better and the steroids seem to have helped. Objective Current Medications: Current Medications Sig/Sanya Start time Last Medication Dose Route Stop Time Status Admin Acetaminophen 325 MG Q4P PRN 05/27 1800 AC 05/29 PO 1714 Albuterol Sulfate 3 ML TID 05/29 1600 AC 05/31 INH 0838 Amlodipine Besylate 10 MG DAILY 05/28 1000 AC 05/31 PO 0929 Azithromycin 500 MG DAILY 05/29 1000 AC 05/31 Dextrose/Water 250 ML IV 0929 Ceftriaxone Sodium 1,000 MG DAILY 05/28 1000 AC 05/31 IV 0929 Cholecalciferol 2,000 IU DAILY 05/29 1000 AC 05/31 PO 0930 Guaifenesin 10 ML .STK-MED ONE 05/30 1828 DC PO 05/30 1829 Guaifenesin 10 ML .STK-MED ONE 05/30 1254 DC PO 05/30 1255 Guaifenesin 10 ML Q4-6 PRN PRN 05/28 0230 AC 05/31 PO 0938 Guaifenesin/ 10 ML .STK-MED ONE 05/30 1551 DC Dextromethorphan PO 05/30 1552 Heparin Sodium 5,000 UNIT Q8 05/27 2200 AC 05/31 (Porcine) SC 0518 Insulin Aspart 0 TIDAC 05/27 1700 AC 05/31 SC 0929 Iron Sucrose 200 MG Q48H 05/28 1800 AC 05/30 Sodium Chloride 100 ML IV 06/05 1814 1830 Methylprednisolone 40 MG Q12 05/29 1025 AC 05/31 IV 0929 Nebivolol 10 MG DAILY 05/29 1000 AC 05/31 PO 0929 Polyethylene Glycol 17 GM DAILY 05/31 0945 AC PO Sodium Bicarbonate 1,300 MG TID 05/28 1602 AC 05/31 PO 0930 Vital Signs & I&O Last 24 Hrs of Vitals and I&O: Vital Signs Date Time Temp Pulse Resp B/P B/P Pulse O2 O2 Flow FiO2 Mean Ox Delivery Rate 05/31 09 83 162/82 05/31 0929 83 162/82 05/31 0840 94 Room Air 05/31 0714 98.3 83 18 162/82 95 Room Air 05/30 2133 97.5 91 18 158/88 94 05/30 1853 98 Room Air 05/30 1735 98.6 90 20 154/66 97 Intake & Output 05/31 1600 05/31 0800 05/31 0000 Intake Total 100 100 Output Total Balance 100 100 Intake, Oral 100 100 Exam Other Physical Findings: Generally - Awake, alert and comfortable without distress Head and neck - normocephalic, atraumatic, EOMI grossly intact Cardiovascular - S1, S2, no murmurs, rubs or gallops Lungs - rhonchi diminished Abdomen - Bowel sounds positive, soft, non-tender Extremities - without edema Results Last 24 Hrs of Lab Results: Laboratory Tests 05/31/17 0515: Anion Gap 15, Estimated GFR 14 L, BUN/Creatinine Ratio 20.6, CBC w Diff NO MAN DIFF REQ, RBC 2.71 L, MCV 88.8, MCH 30.0, RDW 13.8, MPV 8.1, Gran % 88.3 H, Lymphocytes % 9.9 L, Monocytes % 1.8, Eosinophils % 0, Basophils % 0, Absolute Granulocytes 8.9 H, Absolute Lymphocytes 1.0 L, Absolute Monocytes 0.2, Absolute Eosinophils 0, Absolute Basophils 0, PUBS MCHC 33.8 Impression/Plan Impression/Plan Impression/Plan: Impression 81 year old woman * Multiple tree-in-bud nodules throughout both lungs, consistent with infectious bronchiolitis. Also, patchy peribronchial nodular opacities are present within lower lobes, compatible with bronchopneumonia. No pleuraleffusion. - CAP * cardiomegaly, atherosclerotic disease * mild ectasia of the ascending thoracic aorta (4 cm diameter) and moderate pericardial effusion. * Chronic left hydroureteronephrosis with left ureteral stent in place, and * Diffuse osteoporosis * stage IV CKD * anemia Plan -f/u cardiology, s/p limited ECHO, f/u results for pericardial effusion monitoring -cont zithromax, ceftriaxone -f/u nephrology recommendations -metformin/ACEI held -monitor creatinine -wheezing improved, no further respiratory distress - this can be secondary to infectious reactive airways vs excess fluid -repeat cxr today - portable -dc solumedrol 40mg iv q12h - begin prednisone 40mg x 3 days -?if beta kerri contributing to worsened respiratory status -TRC order -ensure cxr in about 4 weeks DVT prophylaxis at all times
--- NOTE | 2017-05-31 10:24 | PN- Cardiology ---
Subjective Subjective: Patient is comfortable with no current complaints. Shortness of breath has improved. No chest pain. No palpitations. No diaphoresis. No nausea or vomiting. Objective Vital Signs and I&Os Vital Signs Date Time Temp Pulse Resp B/P B/P Pulse O2 O2 Flow FiO2 Mean Ox Delivery Rate 05/31 0929 83 162/82 05/31 0929 83 162/82 05/31 0840 94 Room Air 05/31 0714 98.3 83 18 162/82 95 Room Air 05/30 2133 97.5 91 18 158/88 94 05/30 1853 98 Room Air 05/30 1735 98.6 90 20 154/66 97 Intake & Output 05/31 1600 05/31 0800 05/31 0000 05/30 1600 05/30 0800 05/30 0000 Intake Total 100 100 880 200 Output Total Balance 100 100 880 200 Intake, IV 280 Intake, Oral 100 100 600 200 Physical Exam: Gen: NAD HEENT: normal Lungs: Bilateral rhonci, normal resp. effort Heart: RRR, S1, S2, no murmurs Abdomen: Soft, nontender, no masses Extremities: Trace edema Neuro: Alert and oriented x 3, cranial nerves intact Current Medications: Current Medications Sig/Sanya Start time Last Medication Dose Route Stop Time Status Admin Acetaminophen 325 MG Q4P PRN 05/27 1800 AC 05/29 PO 1714 Albuterol Sulfate 3 ML TID 05/29 1600 AC 05/31 INH 0838 Amlodipine Besylate 10 MG DAILY 05/28 1000 AC 05/31 PO 0929 Azithromycin 500 MG DAILY 05/29 1000 AC 05/31 Dextrose/Water 250 ML IV 0929 Ceftriaxone Sodium 1,000 MG DAILY 05/28 1000 AC 05/31 IV 0929 Cholecalciferol 2,000 IU DAILY 05/29 1000 AC 05/31 PO 0930 Guaifenesin 10 ML .STK-MED ONE 05/30 1828 DC PO 05/30 1829 Guaifenesin 10 ML .STK-MED ONE 05/30 1254 DC PO 05/30 1255 Guaifenesin 10 ML Q4-6 PRN PRN 05/28 0230 AC 05/31 PO 0938 Guaifenesin/ 10 ML .STK-MED ONE 05/30 1551 DC Dextromethorphan PO 05/30 1552 Heparin Sodium 5,000 UNIT Q8 05/27 2200 AC 05/31 (Porcine) [place] 0518 Insulin Aspart 0 TIDAC 05/27 1700 AC 05/31 SC 0929 Iron Sucrose 200 MG Q48H 05/28 1800 AC 05/30 Sodium Chloride 100 ML IV 06/05 1814 1830 Methylprednisolone 40 MG Q12 05/29 1025 AC 05/31 IV 0929 Nebivolol 10 MG DAILY 05/29 1000 AC 05/31 PO 0929 Polyethylene Glycol 17 GM DAILY 05/31 0945 AC PO Sodium Bicarbonate 1,300 MG TID 05/28 1602 AC 05/31 PO 0930 Results Last 48 Hrs of Labs/Mics: Laboratory Tests 05/31/17 0515: Anion Gap 15, Estimated GFR 14 L, BUN/Creatinine Ratio 20.6, CBC w Diff NO MAN DIFF REQ, RBC 2.71 L, MCV 88.8, MCH 30.0, RDW 13.8, MPV 8.1, Gran % 88.3 H, Lymphocytes % 9.9 L, Monocytes % 1.8, Eosinophils % 0, Basophils % 0, Absolute Granulocytes 8.9 H, Absolute Lymphocytes 1.0 L, Absolute Monocytes 0.2, Absolute Eosinophils 0, Absolute Basophils 0, PUBS MCHC 33.8 05/30/17 0625: Anion Gap 16, Estimated GFR 17 L, BUN/Creatinine Ratio 17.8, CBC w Diff NO MAN DIFF REQ, RBC 2.76 L, MCV 88.8, MCH 30.0, RDW 13.9, MPV 8.1, Gran % 88.7 H, Lymphocytes % 10.0 L, Monocytes % 1.3 L, Eosinophils % 0, Basophils % 0, Absolute Granulocytes 8.3 H, Absolute Lymphocytes 0.9 L, Absolute Monocytes 0.1, Absolute Eosinophils 0, Absolute Basophils 0, PUBS MCHC 33.8 Recent Imaging Studies: Chest x-ray 05/30/17: Stable cardiomegaly. No evidence of pleural effusion or acute airspace consolidation. Echocardiogram 05/31/17: 1. THis was a limited followup study performed to reasssess the size and signiificance of the pericardial effusion. 2. Aortic sclerosis is present. 3. Mitral leaflet thickening is present. 4. A small to moderate sized pericardial effusion is present which is hemodynamically insignificant 5. The left ventricular chamber size is normal with concentric LVH and hyperdynamic systolic function . 6. Mild tricuspid insufficiency is present with no significant pulmonary hypertension. 7. Compared to the prior study, there has been no significant change. Assessment/Plan Assessment/Plan Assessment: 1. Pneumonia 2. Moderate sized pericardial effusion; hemodynamically insignificant at the present time by echocardiogram. Stable on repeat echocardiogram 3. HTN 4. History of HLD and DM 5. CAD with coronary calcification on CT chest. 6. [place] 7. Anemia 8. Transaminitis Recommendations: * Antibiotic therapy as per the medical service * Continued conservative management of pericardial effusion * Would add clonidine 0.1 mg by mouth twice a day for additional blood pressure control. * Once hypertension has improved, would consider weaning off metoprolol given concerned that it may be contributing to pulmonary symptoms Continue telemetry? Yes
[2017-05-31 14:35] VITALS: BP 154/78
--- NOTE | 2017-05-31 15:31 | PN- Nephrology ---
Assessment/Plan Assessment: 1. [place] in setting of pneumonia and superimposed on CK D stage IV with high- grade proteinuria. The differential diagnosis for the latter includes diabetic nephropathy, hepatitis B associated glomerulonephritis, focal segmental glomerulosclerosis (FSGS) secondary to reduced renal mass due to an obstructed, atrophic left kidney 2. Pneumonia. 3. Metabolic acidosis secondary to diarrhea and renal failure - improved 4. Anemia 5. Hypovitaminosis D 6. Hepatitis B surface antigenemia 7. History of chronic left hydronephrosis with stenting, hypertension, hepatitis B 8. Small to moderate asymptomatic pericardial effusion of uncertain significance Suggestion: 1. 24-hour urine for protein and creatinine 2. Serologic evaluation as suggested by Dr. Gee also to include C3, C4, cryoglobulins and serum free light chains 3. Begin oral vitamin D 2000 units daily 4. Monitor chemistries, intake and output (urine output not being recorded) daily 5. Continue antibiotic therapy and to hold PATRICIA inhibitor and metformin 6. Consider GI or ID consult regarding her chronic hepatitis B surface antigenemia Subjective Subjective: Patient does not speak [place] but seems comfortable and has no apparent complaints. She does indicate that her cough is better and that she is feeling better in general. Serum creatinine slowly rising as is her serum bicarbonate. Unfortunately, urine output not being recorded. Objective Vital Signs and I&Os Vital Signs Date Time Temp Pulse Resp B/P B/P Pulse O2 O2 Flow FiO2 Mean Ox Delivery Rate 05/31 1435 98.8 84 18 154/78 96 Room Air 05/31 0929 83 162/82 05/31 0929 83 162/82 05/31 0840 94 Room Air 05/31 0800 Room Air 05/31 0714 98.3 83 18 162/82 95 Room Air 05/30 2133 97.5 91 18 158/88 94 05/30 1853 98 Room Air 05/30 1735 98.6 90 20 154/66 97 Intake & Output 05/31 1600 05/31 0400 05/30 1600 05/30 0400 05/29 1600 05/29 0400 Intake Total 1026 730 0644 800 760 Output Total Balance 0362 267 3153 800 760 Intake, IV 281 280 300 120 Intake, Oral 740 100 800 500 640 Physical Exam: General: Well-developed, elderly woman in NAD Skin: No rash or jaundice HEENT: Conjunctivae pink, sclerae anicteric, mucous membranes moist Neck: Without masses or thyromegaly, no supraclavicular or cervical adenopathy Chest: Clear to P&A Heart: Regular rate and rhythm without S3 or rub Abdomen: Soft and nontender without palpable masses or organomegaly Extremities: Without cyanosis or edema Neuro: No focal findings, no asterixis or myoclonus Results Pertinent Lab Results: Laboratory Tests 05/31 05/30 0515 0625 Chemistry Sodium (137 - 145 mmol/L) 143 145 Potassium (3.5 - 5.1 mmol/L) 4.2 4.2 Chloride (98 - 107 mmol/L) 109 H 112 H Carbon Dioxide (22 - 30 mmol/L) 18 L 17 L Anion Gap (5 - 16) 15 16 BUN (7 - 17 mg/dL) 66 H 48 H Creatinine (0.5 - 1.0 mg/dL) 3.2 H 2.7 H Estimated GFR (>60 ml/min) 14 L 17 L BUN/Creatinine Ratio (7 - 25 %) 20.6 17.8 Hematology CBC w Diff NO MAN DIFF REQ NO MAN DIFF REQ WBC (4.8 - 10.8 /CUMM) 10.1 9.4 RBC (4.20 - 5.40 /CUMM) 2.71 L 2.76 L Hgb (12.0 - 16.0 G/DL) 8.1 L 8.3 L Hct (37 - 47 %) 24.0 L 24.5 L MCV (81.0 - 99.0 FL) 88.8 88.8 MCH (27.0 - 31.0 PG) 30.0 30.0 RDW (11.5 - 14.5 %) 13.8 13.9 Plt Count (130 - 400 /CUMM) 275 292 MPV (7.4 - 10.4 FL) 8.1 8.1 Gran % (42.2 - 75.2 %) 88.3 H 88.7 H Lymphocytes % (20.5 - 51.1 %) 9.9 L 10.0 L Monocytes % (1.7 - 9.3 %) 1.8 1.3 L Eosinophils % (0 - 5 %) 0 0 Basophils % (0.0 - 2.0 %) 0 0 Absolute Granulocytes (1.4 - 6.5 /CUMM) 8.9 H 8.3 H Absolute Lymphocytes (1.2 - 3.4 /CUMM) 1.0 L 0.9 L Absolute Monocytes (0.10 - 0.60 /CUMM) 0.2 0.1 Absolute Eosinophils (0.0 - 0.7 /CUMM) 0 0 Absolute Basophils (0.0 - 0.2 /CUMM) 0 0 PUBS MCHC (33.0 - 37.0 G/DL) 33.8 33.8 05/29 05/28 0615 1748 Chemistry Sodium (137 - 145 mmol/L) 146 H Potassium (3.5 - 5.1 mmol/L) 4.1 Chloride (98 - 107 mmol/L) 115 H Carbon Dioxide (22 - 30 mmol/L) 17 L Anion Gap (5 - 16) 14 BUN (7 - 17 mg/dL) 37 H Creatinine (0.5 - 1.0 mg/dL) 2.4 H Estimated GFR (>60 ml/min) 19 L BUN/Creatinine Ratio (7 - 25 %) 15.4 Hematology CBC w Diff NO MAN DIFF REQ WBC (4.8 - 10.8 /CUMM) 10.1 RBC (4.20 - 5.40 /CUMM) 2.79 L Hgb (12.0 - 16.0 G/DL) 8.4 L Hct (37 - 47 %) 25.0 L MCV (81.0 - 99.0 FL) 89.6 MCH (27.0 - 31.0 PG) 30.1 RDW (11.5 - 14.5 %) 13.7 Plt Count (130 - 400 /CUMM) 266 MPV (7.4 - 10.4 FL) 8.1 Gran % (42.2 - 75.2 %) 80.9 H Lymphocytes % (20.5 - 51.1 %) 12.4 L Monocytes % (1.7 - 9.3 %) 5.9 Eosinophils % (0 - 5 %) 0.5 Basophils % (0.0 - 2.0 %) 0.3 Absolute Granulocytes (1.4 - 6.5 /CUMM) 8.2 H Absolute Lymphocytes (1.2 - 3.4 /CUMM) 1.3 Absolute Monocytes (0.10 - 0.60 /CUMM) 0.6 Absolute Eosinophils (0.0 - 0.7 /CUMM) 0.1 Absolute Basophils (0.0 - 0.2 /CUMM) 0 PUBS MCHC (33.0 - 37.0 G/DL) 33.6 Serology Hep B DNA copies/mL Pending Hep B DNA (Units/mL) Pending
[2017-05-31 16:13] VITALS: BP 162/80
[2017-05-31 22:15] VITALS: BP 140/70
[2017-06-01 07:39] VITALS: BP 158/78
[2017-06-01 07:55] LABS: ABSOLUTE BASOPHIL COUNT 0 /CUMM (0.0-0.2); ABSOLUTE EOSINOPHIL COUNT 0 /CUMM (0.0-0.7); ABSOLUTE GRANULOCYTE CT 6.4 /CUMM (1.4-6.5); ABSOLUTE LYMPH COUNT 1.7 /CUMM (1.2-3.4); ABSOLUTE MONOCYTE COUNT 0.7 /CUMM (0.10-0.60); BASOPHIL % 0.3 % (0.0-2.0); EOSINOPHIL % 0.1 % (0-5); GRANULOCYTE % 72.7 % (42.2-75.2); HEMATOCRIT 23.7 % (37-47); MEAN CORPUSCULAR HGB CONC 33.8 G/DL (33.0-37.0); MEAN CORPUSCULAR VOLUME 88.8 FL (81.0-99.0); MEAN PLATELET VOLUME 8.2 FL (7.4-10.4); PLATELET COUNT 254 /CUMM (130-400); RBC DISTRIBUTION WIDTH 13.8 % (11.5-14.5); RED BLOOD CELL CT 2.66 /CUMM (4.20-5.40); WHITE BLOOD CELL COUNT 8.8 /CUMM (4.8-10.8)
--- NOTE | 2017-06-01 08:44 | PN- Housestaff ---
Shirlene De Guzman MD,Ami 06/01/17 0844: Subjective Follow-up For: Bronchopneumonia/pneumonia Pericardial effusion [place]O Hep B carrier Subjective: Patient visited today, german speaking, was lying in bed comfortably in no acute distress, was alert and oriented. [id number] at the bedside, reported improved symptoms. No fever or chills, no shortness of breathing, no chest pain, no other events. Review of Systems Constitutional: Reports: see HPI. Objective Last 24 Hrs of Vital Signs/I&O Vital Signs Date Time Temp Pulse Resp B/P B/P Pulse O2 O2 Flow FiO2 Mean Ox Delivery Rate 06/02 0647 98.3 75 18 158/82 95 Room Air 06/02 0000 Room Air 06/01 2224 98.0 79 18 148/62 96 Room Air 06/01 2118 79 142/82 06/01 1428 98.1 70 20 146/70 96 Room Air 06/01 0925 91 136/90 06/01 0925 91 136/90 06/01 0925 91 136/90 06/01 0851 94 Room Air Intake & Output 06/02 1600 06/02 0800 06/02 0000 Intake Total 600 1040 Output Total 950 600 Balance -350 440 Intake, IV 600 560 Intake, Oral 480 Output, Urine 950 600 Patient 132 lb Weight Physical Exam General Appearance: Alert, Oriented X3, Cooperative, No Acute Distress Skin: No Significant Lesion Skin Temp/Moisture Exam: Warm/Dry Sepsis Skin Exam (color): Normal for Ethnicity HEENT: Atraumatic, EOMI, Mucous Membr. moist/pink Cardiovascular: Regular Rate, Normal S1, Normal S2 Lungs: wheezing Abdomen: Soft, No Tenderness Neurological: Strength at 5/5 X4 Ext Extremities: No Edema Current Medications: Current Medications Sig/Sanya Start time Last Medication Dose Route Stop Time Status Admin Acetaminophen 325 MG Q4P PRN 05/27 1800 AC 05/29 PO 1714 Albuterol Sulfate 3 ML Q4P PRN 06/01 1230 AC INH Albuterol Sulfate 3 ML TID 05/29 1600 DC 06/01 INH 0849 Amlodipine Besylate 10 MG DAILY 05/28 1000 AC 06/01 PO 0925 Azithromycin 250 MG DAILY 06/01 1000 AC 06/01 PO 0926 Ceftriaxone Sodium 1,000 MG DAILY 06/01 1000 AC IV Ceftriaxone Sodium 1,000 MG DAILY 05/28 1000 DC 06/01 IV 0925 Cholecalciferol 2,000 IU DAILY 05/29 1000 AC 06/01 PO 0925 Clonidine 0.1 MG BID 05/31 1418 AC 06/01 PO 2118 Guaifenesin 10 ML Q4-6 PRN PRN 05/28 0230 AC 05/31 PO 0938 Heparin Sodium 5,000 UNIT Q8 05/27 2200 AC 06/02 (Porcine) SC 0613 Insulin Aspart 0 TIDAC 05/27 1700 AC 06/01 SC 1801 Iron Sucrose 200 MG Q48H 05/28 1800 AC 06/01 Sodium Chloride 100 ML IV 06/05 1814 1801 Nebivolol 10 MG DAILY 05/29 1000 DC 06/01 PO 0925 Polyethylene Glycol 17 GM DAILY 05/31 0945 AC 06/01 PO 0923 Prednisone 40 MG DAILY 06/01 1000 AC 06/01 PO 06/02 1001 0925 Sodium Bicarbonate 1,300 MG TID 05/28 1602 AC 06/01 PO 2119 Sodium Chloride 1,000 ML Q13H 06/01 1000 DC 06/01 IV 06/01 2259 1020 Last 24 Hrs of Lab/Vishnu Results Last 24 Hrs of Labs/Mics: Laboratory Tests 06/02/17 0700: Sodium Pending, Potassium Pending, Chloride Pending, Carbon Dioxide Pending, Anion Gap Pending, BUN Pending, Creatinine Pending, BUN/Creatinine Ratio Pending , CBC w Diff Pending, WBC Pending, RBC Pending, Hgb Pending, Hct Pending, MCV Pending, MCH Pending, RDW Pending, Plt Count Pending, MPV Pending, PUBS MCHC Pending Assessment/Plan Assessment: 81 y F presented with cough, wheezing and weakness PMH: chronic left hydronephrosis (w/ indwelling stent changed every 9month, last changed in Feb), HTN, HLip, DM VS, Ph Ex at admission: BP 17 5/79, ND 81, RR 20, no fever, saturating well in room air Labs at admission: Hgb 9.8, MCV 89, WBC 10.3, Gran 81%, bicarbonate 16, AG 18, BUN 27, CR 2.6, AST 97, ALT 99, proBNP 1540, d-dimer 529, UA granular cast Imagings at admission: * CXR: Moderate to marked cardiomegaly. Mild pulmonary venous congestion without overt edema. No radiographic evidence of pneumonia. * Chest/Abd CT: 1. Multiple tree-in-bud nodules throughout both lungs, consistent with infectious bronchiolitis. Also, patchy peribronchial nodular opacities are present within lower lobes, compatible with bronchopneumonia. No pleural effusion. 2. Other findings in the chest include cardiomegaly, atherosclerotic disease of coronary arteries, mild ectasia of the ascending thoracic aorta (4 cm diameter) and moderate pericardial effusion. 3. Chronic left hydroureteronephrosis with left ureteral stent in place, and chronic [id number] atrophy of the left renal cortex. 4. Diffuse osteoporosis. Patient was admitted to telemetry floor for management of following conditions: Cough and dyspnea Bronchopneumonia/pneumonia As CT scan revealed patient most likely has bronchopneumonia. CXR repeated today 05/30/17: Severe enlargement of the cardiac silhouette can represent cardiomegaly and/or pericardial effusion. Mild pulmonary venous congestion. Increased interstitial markings can represent interstitial pneumonia. Clinical correlation is suggested. - Continue IV ceftriaxone and azithromycin for broncpneum - initially negative but continue to follow Samuels culture, blood culture X2 urine and sputum culture, urine Ag for pnuemococ and legionella -TRC nebs Mod pericardial effusion- evaluation of CHF was shown in CT scan Echocardiography 05/27/17: 1. Moderate aortic sclerosis is present with no valvular stenosis or insufficiency. Minimal enlargement of the ascending aorta is present 2. Mitral leaflet thickening is present with mild to moderate mitral insufficiency and mild to moderate left atrial enlargement. 3. A small to moderate size circumferential pericardial effusion is present which is most prominent anteriorly and toward the apex. The effusion is hemodynamically insignificant 5. The left ventricular chamber size is normal with mild concentric hypertrophy and hyperdynamic systolic function with an ejection fraction of greater than 75% and no resting wall motion abnormalities. 6. Right heart structures are grossly normal. Mild tricuspid insufficiency is present with a right ventricular systolic pressure 36 mmHg. 7. At the present time, there are no anatomic or Doppler findings present to suggest any hemodynamic significance to the pericardial effusion present. repeated Echo showed no significant change or effect on HD status. - I and O, vital signs and weight everyday - cardio consult appreciated [place]O on CKD -Creatinine relatively improved to her baseline. Cr today 3.1 -nephrology recommanded hep B panel, Urine cr/pr work up as well -on bicardb TID - follow nephro as contacted Anemia Hg 9.8, normal MCV, could be related to kidney disease, aplastic related to age, chronic disease - iron panel low iron low TIBC - venofer started Backpain management of pain with low dose tynelol - tynelol for pain Chronic medical conditions, DM, HTN, HLP, Hep B carrier transaminitis most likely related to Hep B - Hold statin due to increased LFt for now - Hold benicar due to Cr - incerase beta kerri to 10 MG daily and Amlodipine - start Cloniding 0.1 daily - planning to DC beta blockers considering wheezing Diabetic diet, 2 g Na and fluid restriction DVT mechanical and phramacological FC Problem List: 1. Pericardial effusion 2. Bronchopneumonia 3. Acute on chronic renal failure Pain Ratin Pain Location: none Pain Goal: Pain 4 or less Pain Plan: continue current plan Tomorrow's Labs & Rationales: cbc bep [place] 06/01/17 1336: Attending MD Review Statement Attending Statement Attending MD Statement: examined this patient, discuss w/resident/PA/SUPERVISOR BLOOMING MILL, agreed w/resident/PA/SUPERVISOR BLOOMING MILL, reviewed EMR data (avail) Attending Assessment/Plan: agree with the above assessment and plan. pneumonia -breathing better. cont on ceftriaxone and zithromax. [place]O on CKD with cr of 3.1 today , slightly better than 3.2 yesterday. will give her 1 bag of NS today and see if cr starts to come down . High BUN may indicate prereanl etiology and will recheck Fena today. cardiology following for pericardial effusion. no immediate intervention needed.
--- NOTE | 2017-06-01 11:32 | PN- Pulmonary ---
Subjective HPI/Critical Care Issues: Patient seen and examined. She appears to be doing much better. Objective Current Medications: Current Medications Sig/Sanya Start time Last Medication Dose Route Stop Time Status Admin Acetaminophen 325 MG Q4P PRN 05/27 1800 AC 05/29 PO 1714 Albuterol Sulfate 3 ML TID 05/29 1600 AC 06/01 INH 0849 Amlodipine Besylate 10 MG DAILY 05/28 1000 AC 06/01 PO 0925 Azithromycin 250 MG DAILY 06/01 1000 AC 06/01 PO 0926 Azithromycin 500 MG DAILY 05/29 1000 DC 05/31 Dextrose/Water 250 ML IV 0929 Ceftriaxone Sodium 1,000 MG DAILY 06/01 1000 AC IV Ceftriaxone Sodium 1,000 MG DAILY 05/28 1000 DC 06/01 IV 0925 Cholecalciferol 2,000 IU DAILY 05/29 1000 AC 06/01 PO 0925 Clonidine 0.1 MG BID 05/31 1418 AC 06/01 PO 0925 Guaifenesin 10 ML Q4-6 PRN PRN 05/28 0230 AC 05/31 PO 0938 Heparin Sodium 5,000 UNIT Q8 05/27 2200 AC 06/01 (Porcine) SC 0619 Insulin Aspart 0 TIDAC 05/27 1700 AC 05/31 SC 1700 Iron Sucrose 200 MG Q48H 05/28 1800 AC 05/30 Sodium Chloride 100 ML IV 06/05 1814 1830 Nebivolol 10 MG DAILY 05/29 1000 DC 06/01 PO 0925 Polyethylene Glycol 17 GM DAILY 05/31 0945 AC 06/01 PO 0923 Prednisone 40 MG DAILY 06/01 1000 AC 06/01 PO 0925 Sodium Bicarbonate 1,300 MG TID 05/28 1602 AC 06/01 PO 0925 Sodium Chloride 1,000 ML Q13H 06/01 1000 AC 06/01 IV 06/01 2259 1020 Vital Signs & I&O Last 24 Hrs of Vitals and I&O: Vital Signs Date Time Temp Pulse Resp B/P B/P Pulse O2 O2 Flow FiO2 Mean Ox Delivery Rate 06/01 924 91 136/90 06/01 0925 91 136/90 06/01 0925 91 136/90 06/01 0851 94 Room Air 06/01 0800 Room Air 06/01 0739 98.7 85 20 158/78 95 Room Air 05/31 2228 86 140/70 05/31 2215 98.8 86 20 140/70 94 05/31 1840 98 Room Air 05/31 1615 81 162/80 05/31 1613 81 162/80 05/31 1435 98.8 84 18 154/78 96 Room Air Intake & Output 06/01 1600 06/01 0800 06/01 0000 Intake Total 110 540 Output Total 150 Balance 110 390 Intake, IV 10 Intake, Oral 100 540 Output, Urine 150 Exam Other Physical Findings: Generally - Awake, alert and comfortable without distress Head and neck - normocephalic, atraumatic, EOMI grossly intact Cardiovascular - S1, S2, no murmurs, rubs or gallops Lungs - rhonchi diminished Abdomen - Bowel sounds positive, soft, non-tender Extremities - without edema Results Last 24 Hrs of Lab Results: Laboratory Tests 06/01/17 0716: Anion Gap 14, Estimated GFR 14 L, BUN/Creatinine Ratio 25.5 H, CBC w Diff NO MAN DIFF REQ, RBC 2.66 L, MCV 88.8, MCH 30.0, RDW 13.8, MPV 8.2, Gran % 72.7, Lymphocytes % 19.4 L, Monocytes % 7.5, Eosinophils % 0.1, Basophils % 0.3, Absolute Granulocytes 6.4, Absolute Lymphocytes 1.7, Absolute Monocytes 0.7 H, Absolute Eosinophils 0, Absolute Basophils 0, PUBS MCHC 33.8 05/31/17 1659: Cryoglobulin Interp Pending Impression/Plan Impression/Plan Impression/Plan: Impression 81 year old woman * Multiple tree-in-bud nodules throughout both lungs, consistent with infectious bronchiolitis. Also, patchy peribronchial nodular opacities are present within lower lobes, compatible with bronchopneumonia. No pleuraleffusion. - CAP * cardiomegaly, atherosclerotic disease * mild ectasia of the ascending thoracic aorta (4 cm diameter) and moderate pericardial effusion. * Chronic left hydroureteronephrosis with left ureteral stent in place, and * Diffuse osteoporosis * stage IV CKD * anemia Plan -f/u cardiology, s/p limited ECHO, f/u results for pericardial effusion monitoring -cont zithromax, ceftriaxone -f/u nephrology recommendations -metformin/ACEI held -monitor creatinine -wheezing improved, no further respiratory distress - this can be secondary to infectious reactive airways vs excess fluid -repeat cxr today - portable -prednisone 40mg x 2 days then stop -ensure cxr in 4 weeks -call with any questions DVT prophylaxis at all times
--- NOTE | 2017-06-01 13:35 | PN- Cardiology ---
Subjective Subjective: The patient is feeling better. Shortness of breath is improving. No chest pain. No palpitations. No nausea or vomiting. No diaphoresis. Objective Vital Signs and I&Os Vital Signs Date Time Temp Pulse Resp B/P B/P Pulse O2 O2 Flow FiO2 Mean Ox Delivery Rate 06/01 0925 91 136/90 06/01 0925 91 136/90 06/01 0925 91 136/90 06/01 0851 94 Room Air 06/01 0800 Room Air 06/01 0739 98.7 85 20 158/78 95 Room Air 05/31 2228 86 140/70 05/31 2215 98.8 86 20 140/70 94 05/31 1840 98 Room Air 05/31 1615 81 162/80 05/31 1613 81 162/80 05/31 1435 98.8 84 18 154/78 96 Room Air Intake & Output 06/01 1600 06/01 0800 06/01 0000 05/31 1600 05/31 0800 05/31 0000 Intake Total 110 540 921 100 100 Output Total 150 Balance 110 390 921 100 100 Intake, IV 10 281 Intake, Oral 100 540 640 100 100 Output, Urine 150 Physical Exam: Gen: NAD HEENT: normal Lungs: Bilateral rhonci, normal resp. effort Heart: RRR, S1, S2, no murmurs Abdomen: Soft, nontender, no masses Extremities: Trace edema Neuro: Alert and oriented x 3, cranial nerves intact Current Medications: Current Medications Sig/Sanya Start time Last Medication Dose Route Stop Time Status Admin Acetaminophen 325 MG Q4P PRN 05/27 1800 AC 05/29 PO 1714 Albuterol Sulfate 3 ML Q4P PRN 06/01 1230 AC INH Albuterol Sulfate 3 ML TID 05/29 1600 DC 06/01 INH 0849 Amlodipine Besylate 10 MG DAILY 05/28 1000 AC 06/01 PO 0925 Azithromycin 250 MG DAILY 06/01 1000 AC 06/01 PO 0926 Azithromycin 500 MG DAILY 05/29 1000 DC 05/31 Dextrose/Water 250 ML IV 0929 Ceftriaxone Sodium 1,000 MG DAILY 06/01 1000 AC IV Ceftriaxone Sodium 1,000 MG DAILY 05/28 1000 DC 06/01 IV 0925 Cholecalciferol 2,000 IU DAILY 05/29 1000 AC 06/01 PO 0925 Clonidine 0.1 MG BID 05/31 1418 AC 06/01 PO 0925 Guaifenesin 10 ML Q4-6 PRN PRN 05/28 0230 AC 05/31 PO 0938 Heparin Sodium 5,000 UNIT Q8 05/27 2200 AC 06/01 (Porcine) SC 0619 Insulin Aspart 0 TIDAC 05/27 1700 AC 05/31 SC 1700 Iron Sucrose 200 MG Q48H 05/28 1800 AC 05/30 Sodium Chloride 100 ML IV 06/05 1814 1830 Nebivolol 10 MG DAILY 05/29 1000 DC 06/01 PO 0925 Polyethylene Glycol 17 GM DAILY 05/31 0945 AC 06/01 PO 0923 Prednisone 40 MG DAILY 06/01 1000 AC 06/01 PO 0925 Sodium Bicarbonate 1,300 MG TID 05/28 1602 AC 06/01 PO 0925 Sodium Chloride 1,000 ML Q13H 06/01 1000 AC 06/01 IV 06/01 2259 1020 Results Last 48 Hrs of Labs/Mics: Laboratory Tests 06/01/17 0716: Anion Gap 14, Estimated GFR 14 L, BUN/Creatinine Ratio 25.5 H, CBC w Diff NO MAN DIFF REQ, RBC 2.66 L, MCV 88.8, MCH 30.0, RDW 13.8, MPV 8.2, Gran % 72.7, Lymphocytes % 19.4 L, Monocytes % 7.5, Eosinophils % 0.1, Basophils % 0.3, Absolute Granulocytes 6.4, Absolute Lymphocytes 1.7, Absolute Monocytes 0.7 H, Absolute Eosinophils 0, Absolute Basophils 0, PUBS MCHC 33.8 05/31/17 1659: Cryoglobulin Interp Pending 05/31/17 0815: Ref Lab Test Result Pending 05/31/17 0515: Anion Gap 15, Estimated GFR 14 L, BUN/Creatinine Ratio 20.6, CBC w Diff NO MAN DIFF REQ, RBC 2.71 L, MCV 88.8, MCH 30.0, RDW 13.8, MPV 8.1, Gran % 88.3 H, Lymphocytes % 9.9 L, Monocytes % 1.8, Eosinophils % 0, Basophils % 0, Absolute Granulocytes 8.9 H, Absolute Lymphocytes 1.0 L, Absolute Monocytes 0.2, Absolute Eosinophils 0, Absolute Basophils 0, PUBS MCHC 33.8, Complement C3 Pending, Complement C4 Pending Assessment/Plan Assessment/Plan Assessment: 1. Pneumonia 2. Moderate sized pericardial effusion; hemodynamically insignificant at the present time by echocardiogram. Stable on repeat echocardiogram 3. HTN 4. History of HLD and DM 5. CAD with coronary calcification on CT chest. 6. [place] 7. Anemia 8. Transaminitis Recommendations: * Antibiotic therapy as per the medical service * Continued conservative management of pericardial effusion * Decrease nebivolol to 5 mg daily given concern that it may be contributing to wheezing * Continue clonidine, and increase if necessary to control blood pressure after reduction of nebivolol dose Continue telemetry? Yes
[2017-06-01 14:28] VITALS: BP 146/70
--- NOTE | 2017-06-01 15:27 | RADIOLOGY REPORT ---
EXAMINATION: XR PORTABLE CHEST CLINICAL INFORMATION: Pleural effusion and edema shortness of breath and wheezing. COMPARISON: Portable chest x-ray dated 05/30/2017 at 3:55 PM. TECHNIQUE: Portable frontal view of the chest was obtained. FINDINGS: Again noted is the substantial cardiomegaly. Prominence of the superior mediastinum is stable. There is blurring and prominence of the pulmonary interstitial markings suggestive of pulmonary edema. There is an area of increased density in the right costophrenic angle however the deep portion of the right costophrenic angle is clear, this is thought to be superimposition of the breast soft tissue. There is blunting of left costophrenic angle suggestive of a small left-sided pleural effusion. IMPRESSION: Stable cardiomegaly and pulmonary edema, stable small left-sided pleural effusion.
[2017-06-01 22:24] VITALS: BP 148/62
[2017-06-02 06:47] VITALS: BP 158/82
--- NOTE | 2017-06-02 07:52 | PN- Housestaff ---
Shirlene De Guzman MD,Ami 06/02/17 0752: Subjective Follow-up For: Bronchopneum [place]UG[place]O Pericardial effusion Subjective: Patient visited today, lying in bed comfortably in no acute distress.. reported improved breathing. No chest pain, palpitation, no event overnight. was complaining of left sided flank pain, will ask for urology consult. Review of Systems Constitutional: Reports: see HPI. Objective Last 24 Hrs of Vital Signs/I&O Vital Signs Date Time Temp Pulse Resp B/P B/P Pulse O2 O2 Flow FiO2 Mean Ox Delivery Rate 06/02 0647 98.3 75 18 158/82 95 Room Air 06/02 0000 Room Air 06/01 2224 98.0 79 18 148/62 96 Room Air 06/01 2118 79 142/82 06/01 1428 98.1 70 20 146/70 96 Room Air Intake & Output 06/02 1600 06/02 0800 06/02 0000 Intake Total 600 1040 Output Total 950 600 Balance -350 440 Intake, IV 600 560 Intake, Oral 480 Output, Urine 950 600 Patient 132 lb Weight Physical Exam General Appearance: Alert, Oriented X3, Cooperative, No Acute Distress Skin: No Significant Lesion Skin Temp/Moisture Exam: Warm/Dry Sepsis Skin Exam (color): Normal for Ethnicity HEENT: Atraumatic, EOMI, Mucous Membr. moist/pink Cardiovascular: Regular Rate, Normal S1, Normal S2 Lungs: Clear to Auscultation Abdomen: Normal Bowel Sounds, Soft, No Tenderness, left side flank tenderness Neurological: Normal Speech Extremities: No Edema Current Medications: Current Medications Sig/Sanya Start time Last Medication Dose Route Stop Time Status Admin Acetaminophen 325 MG Q4P PRN 05/27 1800 AC 05/29 PO 1714 Albuterol Sulfate 3 ML Q4P PRN 06/01 1230 AC INH Albuterol Sulfate 3 ML TID 05/29 1600 DC 06/01 INH 0849 Amlodipine Besylate 10 MG DAILY 05/28 1000 AC 06/02 PO 0923 Azithromycin 250 MG DAILY 06/01 1000 AC 06/02 PO 09 Ceftriaxone Sodium 1,000 MG DAILY 06/01 1000 AC IV Ceftriaxone Sodium 1,000 MG DAILY 05/28 1000 DC 06/01 IV 0925 Cholecalciferol 2,000 IU DAILY 05/29 1000 AC 06/02 PO 09 Clonidine 0.1 MG BID 05/31 1418 AC 06/02 PO 0923 Guaifenesin 10 ML Q4-6 PRN PRN 05/28 0230 AC 05/31 PO 0938 Heparin Sodium 5,000 UNIT Q8 05/27 2200 AC 06/02 (Porcine) SC 0613 Insulin Aspart 0 TIDAC 05/27 1700 AC 06/01 SC 1801 Iron Sucrose 200 MG Q48H 05/28 1800 AC 06/01 Sodium Chloride 100 ML IV 06/05 1814 1801 Nebivolol 10 MG DAILY 05/29 1000 DC 06/01 PO 0925 Polyethylene Glycol 17 GM DAILY 05/31 0945 AC 06/02 PO 0924 Prednisone 40 MG DAILY 06/01 1000 AC 06/02 PO 06/02 1001 0923 Sodium Bicarbonate 1,300 MG TID 05/28 1602 AC 06/02 PO 0922 Sodium Chloride 1,000 ML Q13H 06/01 1000 DC 06/01 IV 06/01 2259 1020 Last 24 Hrs of Lab/Vishnu Results Last 24 Hrs of Labs/Mics: Laboratory Tests 06/02/17 0700: Anion Gap 13, Estimated GFR 14 L, BUN/Creatinine Ratio 23.9, Albumin Pending, Prealbumin Pending, CBC w Diff NO MAN DIFF REQ, RBC 2.73 L, MCV 89.1, MCH 30.3, RDW 13.6, MPV 8.6, Gran % 69.5, Lymphocytes % 20.0 L, Monocytes % 10.1 H, Eosinophils % 0.1, Basophils % 0.3, Absolute Granulocytes 5.9, Absolute Lymphocytes 1.7, Absolute Monocytes 0.9 H, Absolute Eosinophils 0, Absolute Basophils 0, PUBS MCHC 34.0 Assessment/Plan Assessment: 81 y F presented with cough, wheezing and weakness PMH: chronic left hydronephrosis (w/ indwelling stent changed every 9month, last changed in Feb), HTN, HLip, DM VS, Ph Ex at admission: BP 17 5/79, VA 81, RR 20, no fever, saturating well in room air Labs at admission: Hgb 9.8, MCV 89, WBC 10.3, Gran 81%, bicarbonate 16, AG 18, BUN 27, CR 2.6, AST 97, ALT 99, proBNP 1540, d-dimer 529, UA granular cast Imagings at admission: * CXR: Moderate to marked cardiomegaly. Mild pulmonary venous congestion without overt edema. No radiographic evidence of pneumonia. * Chest/Abd CT: 1. Multiple tree-in-bud nodules throughout both lungs, consistent with infectious bronchiolitis. Also, patchy peribronchial nodular opacities are present within lower lobes, compatible with bronchopneumonia. No pleural effusion. 2. Other findings in the chest include cardiomegaly, atherosclerotic disease of coronary arteries, mild ectasia of the ascending thoracic aorta (4 cm diameter) and moderate pericardial effusion. 3. Chronic left hydroureteronephrosis with left ureteral stent in place, and chronic [id number] atrophy of the left renal cortex. 4. Diffuse osteoporosis. Patient was admitted to telemetry floor for management of following conditions: Cough and dyspnea Bronchopneumonia/pneumonia As CT scan revealed patient most likely has bronchopneumonia. CXR repeated today 05/30/17: Severe enlargement of the cardiac silhouette can represent cardiomegaly and/or pericardial effusion. Mild pulmonary venous congestion. Increased interstitial markings can represent interstitial pneumonia. Clinical correlation is suggested. - Discontinue ceftriaxone and azithromycin PO - TRC nebs - beta-bloker for blood pressure was changed to Clonidine po - follow blood pressure Small- mod pericardial effusion - evaluation of CHF This finding was observed in CT scan Echocardiography 05/27/17: 1. Moderate aortic sclerosis is present with no valvular stenosis or insufficiency. Minimal enlargement of the ascending aorta is present 2. Mitral leaflet thickening is present with mild to moderate mitral insufficiency and mild to moderate left atrial enlargement. 3. A small to moderate size circumferential pericardial effusion is present which is most prominent anteriorly and toward the apex. The effusion is hemodynamically insignificant 5. The left ventricular chamber size is normal with mild concentric hypertrophy and hyperdynamic systolic function with an ejection fraction of greater than 75% and no resting wall motion abnormalities. 6. Right heart structures are grossly normal. Mild tricuspid insufficiency is present with a right ventricular systolic pressure 36 mmHg. 7. At the present time, there are no anatomic or Doppler findings present to suggest any hemodynamic significance to the pericardial effusion present. repeated Echo showed no significant change or effect on HD status. - Conservative management for now - I and O, vital signs and weight everyday - follow cardiology - follow pulm AUGUSTO on CKD Proteinuria The underlying potential causea were DM, Hydronephrosis wih indewelling cath and Hep B carrier. Patient had Cr of 2.2 in february, when cath was changed with Dr Burrell. Fena at admission was 1.7. Nephrology was consulted, 24h urine analysis revealed Cr 0.6 and Pr of 7gr. Light chain and complment studies were requested. Urine lytes were repeated. Cr today: 3.1 - continue bicarb TID - Continue venofer - Follow urine lytes, light chain and complement - Follow nephrology - follow urology Anemia Hg 9.8, normal MCV, could be related to kidney disease, aplastic related to age, chronic disease. Also had increased Pr in 24hour urine without nephrotic presentation suggesting posibility of Myeloma. - iron panel: low iron low TIBC - venofer started due to CKD as higher level of ferritin is targeted - follow labs as noted above Backpain management of pain with low dose tynelol - tynelol for pain Chronic medical conditions, DM, HTN, HLP, Hep B carrier transaminitis most likely related to Hep B - Hold statin due to increased LFt for now - Hold benicar due to Cr - Contniue Amlodipine - DC beta blockers considering wheezing and start Cloniding 0.1 BID Diabetic diet, 2 g Na and fluid restriction DVT mechanical and phramacological FC Problem List: 1. Pericardial effusion 2. Bronchopneumonia 3. Acute on chronic renal failure 4. Proteinuria Pain Ratin (trenderness in left flank) Pain Location: left flank Pain Goal: Pain 4 or less Pain Plan: Uro consult Tomorrow's Labs & Rationales: Gail Anderson 06/02/17 1656: Attending MD Review Statement Attending Statement Attending MD Statement: examined this patient, discuss w/resident/PA/VARNISH REMOVER, agreed w/resident/PA/VARNISH REMOVER, reviewed EMR data (avail), discussed with nursing, discussed with case mgmt Attending Assessment/Plan: 81 yr old female with pmh of HTN on amlodipiine, benazepril and bystolic, HLD on statins,DM on metformin, ckd , chronic left side hydronephrosis for which she had stent replaced every 9 months was brought to the ER by family for sob and cough for 1 week duration. Pt was initally taking to urgent care and was sent to ER from there. Pt on CT scan of the chest was found to have- "Multiple tree-in-bud nodules throughout both lungs, consistent with infectious bronchiolitis. Also, patchy peribronchial nodular opacities are present within lower lobes, compatible with bronchopneumonia. Also found to have moderate pericardial effusion" . Pneumonia- received ceftrixone and zithromax. Pulmonary following. appreciated their input. Moderate pericardial effusion- d/w cardiology, likely viral etiology. Repeat echo shows stable pericardial effusion . AUGUSTO with severe proteinuria- will await nephrology further recommendations given the high proteinuria. KAPPA LIGHT CHAIN, 26.3 H mg/L 3.3-19.4 LAMBDA LIGHT CHAIN, 26.6 H mg/L 5.7-26.3 RATIO, SERUM 0.99 0.26-1.65 d/w nephrlogy the proteinuria as well as light chain results. Does not correlate with monoclonal gammopathy.
[2017-06-02 07:58] LABS: ABSOLUTE BASOPHIL COUNT 0 /CUMM (0.0-0.2); ABSOLUTE EOSINOPHIL COUNT 0 /CUMM (0.0-0.7); ABSOLUTE GRANULOCYTE CT 5.9 /CUMM (1.4-6.5); ABSOLUTE LYMPH COUNT 1.7 /CUMM (1.2-3.4); ABSOLUTE MONOCYTE COUNT 0.9 /CUMM (0.10-0.60); BASOPHIL % 0.3 % (0.0-2.0); EOSINOPHIL % 0.1 % (0-5); GRANULOCYTE % 69.5 % (42.2-75.2); HEMATOCRIT 24.3 % (37-47); MEAN CORPUSCULAR HGB 30.3 PG (27.0-31.0); MEAN CORPUSCULAR VOLUME 89.1 FL (81.0-99.0); MEAN PLATELET VOLUME 8.6 FL (7.4-10.4); PLATELET COUNT 258 /CUMM (130-400); RBC DISTRIBUTION WIDTH 13.6 % (11.5-14.5); RED BLOOD CELL CT 2.73 /CUMM (4.20-5.40); WHITE BLOOD CELL COUNT 8.5 /CUMM (4.8-10.8)
--- NOTE | 2017-06-02 09:35 | Discharge Summary ---
Visit Information Visit Dates Admission Date: 05/27/17 Discharge Date: 06/03/17 Hospital Course Course Attending Physician: Gail Weber MD Primary Care Physician: Juni Higgins DO Hospital Course: 81 y F presented with cough, wheezing and weakness PMH: chronic left hydronephrosis (w/ indwelling stent changed every 9month, last changed in Feb), HTN, HLip, DM VS, Ph Ex at admission: BP 17 5/79, [place] 81, RR 20, no fever, saturating well in room air Labs at admission: Hgb 9.8, MCV 89, WBC 10.3, Gran 81%, bicarbonate 16, AG 18, BUN 27, CR 2.6, AST 97, ALT 99, proBNP 1540, d-dimer 529, UA granular cast Imagings at admission: * CXR: Moderate to marked cardiomegaly. Mild pulmonary venous congestion without overt edema. No radiographic evidence of pneumonia. * Chest/Abd CT: 1. Multiple tree-in-bud nodules throughout both lungs, consistent with infectious bronchiolitis. Also, patchy peribronchial nodular opacities are present within lower lobes, compatible with bronchopneumonia. No pleural effusion. 2. Other findings in the chest include cardiomegaly, atherosclerotic disease of coronary arteries, mild ectasia of the ascending thoracic aorta (4 cm diameter) and moderate pericardial effusion. 3. Chronic left hydroureteronephrosis with left ureteral stent in place, and chronic fazmidkr-hv-hggdms atrophy of the left renal cortex. 4. Diffuse osteoporosis. Patient was admitted to telemetry floor for management of following conditions: Cough and dyspnea Bronchopneumonia/pneumonia CT scan revealed a possible bronchopneumonia. Antibiotic treatment was administered by . CXR repeated for re-evalaution 05/30/17: Severe enlargement of the cardiac silhouette can represent cardiomegaly and/or pericardial effusion. Mild pulmonary venous congestion. Increased interstitial markings can represent interstitial pneumonia. Clinical correlation is suggested. - Discontinue ceftriaxone and azithromycin PO - TRC nebs - beta-bloker was changed to Clonidine po - follow blood pressure Small- mod pericardial effusion - evaluation of CHF This finding was observed in CT scan Echocardiography 05/27/17: 1. Moderate aortic sclerosis is present with no valvular stenosis or insufficiency. Minimal enlargement of the ascending aorta is present 2. Mitral leaflet thickening is present with mild to moderate mitral insufficiency and mild to moderate left atrial enlargement. 3. A small to moderate size circumferential pericardial effusion is present which is most prominent anteriorly and toward the apex. The effusion is hemodynamically insignificant 5. The left ventricular chamber size is normal with mild concentric hypertrophy and hyperdynamic systolic function with an ejection fraction of greater than 75% and no resting wall motion abnormalities. 6. Right heart structures are grossly normal. Mild tricuspid insufficiency is present with a right ventricular systolic pressure 36 mmHg. 7. At the present time, there are no anatomic or Doppler findings present to suggest any hemodynamic significance to the pericardial effusion present. repeated Echo showed no significant change or effect on HD status. - Conservative management for now - I and O, vital signs and weight everyday - follow cardiology in outpatient, recommended to do follow up echo in outpatient AUG[place]O on CKD Proteinuria The underlying potential causea were DM, Hydronephrosis wih indewelling cath and Hep B carrier. Patient had Cr of 2.2 in february, when cath was changed with Dr Burrell. Fena at admission was 1.7. Nephrology was consulted, 24h urine analysis revealed Cr 0.6 and Pr of 7gr. Light chain were upper normal limit, complment studies pending. Urine lytes were repeated. Urology contacted for the left flank pain and recommended conservative management with recommendation to follow in outpatient. Gi was consulted regarding Hep B management. Cr today: - continue bicarb TID - Continue venofer - Follow urine lytes, light chain and complement - Follow nephrology in one week - follow urology - follow GI for Hep B treatment in outpatient as this could help with kidney function Anemia Hg 9.8, normal MCV, could be related to kidney disease, aplastic related to age, chronic disease. Also had increased Pr in 24hour urine without nephrotic presentation suggesting posibility of Myeloma. - iron panel: low iron low TIBC - venofer started due to CKD as higher level of ferritin is targeted - PO Iron was adminsitered Backpain management of pain with low dose tynelol - tynelol PRN for pain Chronic medical conditions, DM, HTN, HLP, Hep B carrier transaminitis most likely related to Hep B - Hold metformin due to increased CR and relatively normal Hb a1c - follow with PCP - Contniue Amlodipine - beta blockers was changed considering wheezing and started Cloniding 0.1 BID Diabetic diet, 2 g Na and fluid restriction DVT mechanical and phramacological FC Patient was discharged with recommendations below: Allergies: Coded Allergies: NO KNOWN ALLERGIES (07/02/16) NKA PER ANTIBIOTIC ORDER SHEET OF 12/10/14 (JOSSELYN) Significant Procedures: None Disposition Summary Disposition Principal Diagnosis: Bronchopneumonia/pneumonia Additional Diagnosis: Pericardial effusion AUGUSTO on CKD Proteinuria Hep B carier Discharge Disposition: home health services Discharge Instructions General Discharge Information Code Status: Full Code Patient's Diet: Diabetic, 2gr Na and 2 gr Potassium Patient's Activity: self limtied Follow-Up Instructions/Appts: Please follow-up with your PCP within one week of discharge. Please follow-up with your customer manager and urologist within 1 week of discharge regarding your proteinuria and kidney injury. Please follow with your surface plate finisher within 1-2 weeks of discharge regarding effusion around heart. Please follow with your public relations counselor within 1-2 weeks of discharge regarding hepatitis management. Please note some of your medications has changed, please take them accordingly. Please come back to hospital if any of the symptoms worsen. Medications at Discharge Discharge Medications: Stop taking the following medications: Metformin HCl (Metformin HCl ER) 500 MG TAB.ER.24H ORAL DAILY Nebivolol HCl (Bystolic) 5 MG TABLET ORAL DAILY Continue taking these medications: Benazepril HCl (Benazepril HCl) 20 MG TABLET 1 Tablet ORAL DAILY Comments: NOT GIVEN IN HOSPITAL Amlodipine Besylate (Amlodipine Besylate) 10 MG TABLET 1 Tablet ORAL DAILY Comments: Last Taken: 06/03/17 Time: 9AM Simvastatin (Simvastatin*) 20 MG TABLET 1 Tablet ORAL Every night Comments: NOT GIVEN IN HOSPITAL Start taking the following new medications: Ferrous Sulfate (Ferrous Sulfate) 325 MG (65 MG IRON) TABLET 1 Tablet ORAL TWICE DAILY Qty = 30 No Refills Instructions: . Comments: NOT GIVEN IN HOSPITAL. PT GIVEN IV IRON 06/01/17 @ 6PM Clonidine HCl (Clonidine HCl) 0.1 MG TABLET 0.1 Milligram ORAL TWICE DAILY Qty = 60 Refills = 1 Instructions: . Comments: Last Taken: 06/03/17 Time: 9AM Guaifenesin (Guaifenesin) 100 MG/5 ML LIQUID 10 Milliliters ORAL EVERY 4-6 HOURS NEEDED as needed for COUGH Qty = 4 No Refills Instructions: . Comments: Last Taken: 05/31/17 Time: 9AM Cholecalciferol (Vitamin D3) 1,000 UNIT TABLET 2,000 International Unit ORAL DAILY Qty = 50 No Refills Instructions: . Comments: Last Taken: 06/03/17 Time: 9AM Copies To: Fadia NAVARRETE,Cameron Becerril; Joleen Jaimes MD; Yuko NAVARRETE,Isaias Mcknight; Juni Higgins DO Attending MD Review Statement Documenting Attending: Tia NAVARRETE,Gail Collazo
--- NOTE | 2017-06-02 13:50 | PN- Cardiology ---
Subjective Subjective: Cardiac status stable Objective Vital Signs and I&Os Vital Signs Date Time Temp Pulse Resp B/P B/P Pulse O2 O2 Flow FiO2 Mean Ox Delivery Rate 06/02 1338 94 Room Air Room Air 06/02 0647 98.3 75 18 158/82 95 Room Air 06/02 0000 Room Air 06/01 2224 98.0 79 18 148/62 96 Room Air 06/01 2118 79 142/82 06/01 1428 98.1 70 20 146/70 96 Room Air Intake & Output 06/02 1600 06/02 0800 06/02 0000 06/01 1600 06/01 0800 06/01 0000 Intake Total 600 1040 1147.50 110 540 Output Total 950 600 450 150 Balance -350 440 697.50 110 390 Intake, IV 600 560 367.50 10 Intake, Oral 480 780 100 540 Output, Urine 950 600 450 150 Patient 132 lb Weight Current Medications: Current Medications Sig/Sanya Start time Last Medication Dose Route Stop Time Status Admin Acetaminophen 325 MG Q4P PRN 05/27 1800 AC 05/29 PO 1714 Albuterol Sulfate 3 ML Q4P PRN 06/01 1230 AC 06/02 INH 1336 Amlodipine Besylate 10 MG DAILY 05/28 1000 AC 06/02 PO 0923 Azithromycin 250 MG DAILY 06/01 1000 AC 06/02 PO 0922 Ceftriaxone Sodium 1,000 MG DAILY 06/01 1000 AC 06/02 IV 1123 Cholecalciferol 2,000 IU DAILY 05/29 1000 AC 06/02 PO 0922 Clonidine 0.1 MG BID 05/31 1418 AC 06/02 PO 0923 Guaifenesin 10 ML Q4-6 PRN PRN 05/28 0230 AC 05/31 PO 0938 Heparin Sodium 5,000 UNIT Q8 05/27 2200 AC 06/02 (Porcine) SC 1329 Insulin Aspart 0 TIDAC 05/27 1700 AC 06/01 SC 1801 Iron Sucrose 200 MG Q48H 05/28 1800 AC 06/01 Sodium Chloride 100 ML IV 06/05 1814 1801 Polyethylene Glycol 17 GM DAILY 05/31 0945 AC 06/02 PO 0924 Prednisone 40 MG DAILY 06/01 1000 DC 06/02 PO 06/02 1001 0923 Sodium Bicarbonate 1,300 MG TID 05/28 1602 AC 06/02 PO 0922 Sodium Chloride 1,000 ML Q13H 06/01 1000 DC 06/01 IV 06/01 9909 1020 Results Last 48 Hrs of Labs/Mics: Laboratory Tests 06/02/17 0940: Urinalysis LIGHT H, Urine Color STRAW, Urine Clarity HAZY H, Urine pH 6.5, Ur Specific [place] 1.015, Urine Protein 100 H, Urine Ketones NEG, Urine Nitrite NEG, Urine Bilirubin NEG, Urine Urobilinogen 0.2, Ur Leukocyte Esterase NEG, Ur Microscopic SEDIMENT EXAMINED, Urine RBC 1-3, Urine WBC 1-3 H, Ur Epithelial Cells RARE, Urine Bacteria FEW H, Urine Mucus FEW, Urine Hemoglobin SMALL H, Urine Glucose NEG 06/02/17 0940: Urine Osmolality 295 L, Ur Random Creatinine 21.6, Ur Random Sodium 68, Ur Random Potassium 14.5, Fraction Sodium Excret 6.9 H 06/02/17 0700: Anion Gap 13, Estimated GFR 14 L, BUN/Creatinine Ratio 23.9, Albumin 2.6 L, Prealbumin 27.9, CBC w Diff NO MAN DIFF REQ, RBC 2.73 L, MCV 89.1, MCH 30.3, RDW 13.6, MPV 8.6, Gran % 69.5, Lymphocytes % 20.0 L, Monocytes % 10.1 H, Eosinophils % 0.1, Basophils % 0.3, Absolute Granulocytes 5.9, Absolute Lymphocytes 1.7, Absolute Monocytes 0.9 H, Absolute Eosinophils 0, Absolute Basophils 0, PUBS MCHC 34.0 06/01/17 0716: Anion Gap 14, Estimated GFR 14 L, BUN/Creatinine Ratio 25.5 H, CBC w Diff NO MAN DIFF REQ, RBC 2.66 L, MCV 88.8, MCH 30.0, RDW 13.8, MPV 8.2, Gran % 72.7, Lymphocytes % 19.4 L, Monocytes % 7.5, Eosinophils % 0.1, Basophils % 0.3, Absolute Granulocytes 6.4, Absolute Lymphocytes 1.7, Absolute Monocytes 0.7 H, Absolute Eosinophils 0, Absolute Basophils 0, PUBS MCHC 33.8 05/31/17 1736: Ur Random Creatinine 33.3, Urine Total Volume 1950 H, Urine Creatinine 0.6 L, Ur Total Protein 24 Hr 6922.5 H 05/31/17 1659: Cryoglobulin Interp Pending Assessment/Plan Assessment/Plan Assessment: 1. Cough with abnormal CT chest; ? pneumonia 2. Moderate sized pericardial effusion; hemodynamically insignificant at the present time by echocardiogram 3. HTN 4. History of HLD and DM 5. CAD with coronary calcification on CT chest. 6. [place] 7. Anemia 8. Transaminitis Recommendations: - COntinue as outlined by the medical team - Eventual follow-up echocardiogram in 4-8 weeks to reassess pericardial effusion Continue telemetry? No
[2017-06-02 14:44] VITALS: BP 150/80
--- NOTE | 2017-06-02 18:11 | Cons- Urology ---
General Information and HPI Consulting Request Date of Consult: 06/02/17 Requested By: Tia NAVARRETE,Gail Collazo Reason for Consult: L hydronephrosis with indwelling stent and back pain Source of Information: family, old records Exam Limitations: no limitations History of Present Illness: This patient was admitted with shortness of breath and wheezing and was found to have bronchopneumonia. She has multiple comorbidities. She has a L ureteral stricture with L hydronephrosis and L renal atrophy which has been treated with an indwelling ureteral stent initially placed by Dr Alvarez. The stent is changed periodically and was last changed on 03/08/17. On this admission she has complained of some back pain which is relieved with tylenol. Also her creatinine was elevated above baseline. She does have chronic CKD. Her urine has not been infected. CT scan of the abd and pelvis shows significant L renal atrophy and chronic L hydronephrosis. The L ureteral stent is in place but has migrated slightly inferior such that the proximal coil is in a dilated proximal ureter. Allergies/Medications Allergies: Coded Allergies: NO KNOWN ALLERGIES (07/02/16) NKA PER ANTIBIOTIC ORDER SHEET OF 12/10/14 ([facility]) Home Med List: Amlodipine Besylate 10 MG TABLET 1 TAB PO DAILY HTN (Reported) Benazepril HCl 20 MG TABLET 1 TAB PO DAILY HTN (Reported) Metformin HCl (Metformin HCl ER) 500 MG TAB.ER.24H 1 TAB PO DAILY DM II ( Reported) Nebivolol HCl (Bystolic) 5 MG TABLET 1 TAB PO DAILY HTN (Reported) Simvastatin (Simvastatin*) 20 MG TABLET 1 TAB PO QPM CHOLESTEROL (Reported) Current Medications: Current Medications Sig/Sanya Start time Last Medication Dose Route Stop Time Status Admin Acetaminophen 325 MG Q4P PRN 05/27 1800 AC 06/02 PO 1549 Albuterol Sulfate 3 ML Q4P PRN 06/01 1230 AC 06/02 INH 1336 Amlodipine Besylate 10 MG DAILY 05/28 1000 AC 06/02 PO 0923 Azithromycin 250 MG DAILY 06/01 1000 DC 06/02 PO 09 Ceftriaxone Sodium 1,000 MG DAILY 06/01 1000 DC 06/02 IV 1123 Cholecalciferol 2,000 IU DAILY 05/29 1000 AC 06/02 PO 0922 Clonidine 0.1 MG BID 05/31 1418 AC 06/02 PO 0923 Guaifenesin 10 ML Q4-6 PRN PRN 05/28 0230 AC 05/31 PO 0938 Heparin Sodium 5,000 UNIT Q8 05/27 2200 AC 06/02 (Porcine) SC 1329 Insulin Aspart 0 TIDAC 05/27 1700 AC 06/01 SC 1801 Iron Sucrose 200 MG Q48H 05/28 1800 AC 06/01 Sodium Chloride 100 ML IV 06/05 1814 1801 Polyethylene Glycol 17 GM DAILY 05/31 0945 AC 06/02 PO 0924 Prednisone 40 MG DAILY 06/01 1000 DC 06/02 PO 06/02 1001 0923 Sodium Bicarbonate 1,300 MG TID 05/28 1602 AC 06/02 PO 1549 Sodium Chloride 1,000 ML Q13H 06/01 1000 DC 06/01 IV 06/01 2259 1020 Past History Medical History Blood Transfusion Hx: No Neurological: NONE, TIA EENT: NONE Cardiovascular: hypertension, hyperlipidemia Respiratory: pneumonia Gastrointestinal: NONE Hepatic: HEP B CARRIER Renal: L HYDRONBEPHROSIS L RENAL STENT Musculoskeletal: NONE Psychiatric: NONE Endocrine: diabetes Blood Disorders: NONE Cancer(s): NONE 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 Home Services at Home: None Smoking Status: Never Smoked ETOH Use: denies use Illicit Drug Use: denies illicit drug use Exam & Diagnostic Data Vital Signs and I&O Vital Signs Date Time Temp Pulse Resp B/P B/P Pulse O2 O2 Flow FiO2 Mean Ox Delivery Rate 06/02 1444 98.8 75 18 150/80 100 06/02 1338 94 Room Air Room Air 06/02 0647 98.3 75 18 158/82 95 Room Air 06/02 0000 Room Air 06/01 2224 98.0 79 18 148/62 96 Room Air 06/01 2118 79 142/82 Intake & Output 06/02 1600 06/02 0800 06/02 0000 06/01 1600 06/01 0800 06/01 0000 Intake Total 7582 483 9162 1147.50 110 540 Output Total 900 950 600 450 150 Balance 100 -350 440 697.50 110 390 Intake, IV 600 600 560 367.50 10 Intake, Oral 400 480 780 100 540 Output, Urine 900 950 600 450 150 Patient 132 lb Weight Resting in bed comfortably. She is non Singaporean-speaking Back: No CVA tenderness Abd: soft and non tender Laboratory Tests 06/02 06/02 0940 0940 Urines Urinalysis LIGHT H Urine Color (YEL,AMB,STR) STRAW Urine Clarity (CLEAR) HAZY H Urine pH (5.0 - 8.0) 6.5 Ur Specific [place] (1.001 - 1.035) 1.015 Urine Protein (NEG,<30 MG/DL) 100 H Urine Ketones (NEG) NEG Urine Nitrite (NEG) NEG Urine Bilirubin (NEG) NEG Urine Urobilinogen (0.1 - 1.0 EU/dl) 0.2 Ur Leukocyte Esterase (NEG) NEG Ur Microscopic SEDIMENT EXAMINED Urine RBC (0 - 5 /HPF) 1-3 Urine WBC (0 - 2 /HPF) 1-3 H Ur Epithelial Cells (NONE,FEW) RARE Urine Bacteria (NEG/NONE) FEW H Urine Mucus (FEW,NONE) FEW Urine Hemoglobin (NEG) SMALL H Urine Osmolality (300 - 1000 MOSM/KG) 295 L Ur Random Creatinine (mg/dL) 21.6 Ur Random Sodium (30 - 90 mmol/L) 68 Ur Random Potassium (mmol/L) 14.5 Fraction Sodium Excret (<1% %) 6.9 H Urine Glucose (N MG/DL) NEG 06/02 0700 Chemistry Sodium (137 - 145 mmol/L) 142 Potassium (3.5 - 5.1 mmol/L) 4.7 Chloride (98 - 107 mmol/L) 107 Carbon Dioxide (22 - 30 mmol/L) 21 L Anion Gap (5 - 16) 13 BUN (7 - 17 mg/dL) 74 H Creatinine (0.5 - 1.0 mg/dL) 3.1 H Estimated GFR (>60 ml/min) 14 L BUN/Creatinine Ratio (7 - 25 %) 23.9 Albumin (3.5 - 5.0 g/dL) 2.6 L Prealbumin (17.6 - 36.0 mg/dL) 27.9 Hematology CBC w Diff NO MAN DIFF REQ WBC (4.8 - 10.8 /CUMM) 8.5 RBC (4.20 - 5.40 /CUMM) 2.73 L Hgb (12.0 - 16.0 G/DL) 8.3 L Hct (37 - 47 %) 24.3 L MCV (81.0 - 99.0 FL) 89.1 MCH (27.0 - 31.0 PG) 30.3 RDW (11.5 - 14.5 %) 13.6 Plt Count (130 - 400 /CUMM) 258 MPV (7.4 - 10.4 FL) 8.6 Gran % (42.2 - 75.2 %) 69.5 Lymphocytes % (20.5 - 51.1 %) 20.0 L Monocytes % (1.7 - 9.3 %) 10.1 H Eosinophils % (0 - 5 %) 0.1 Basophils % (0.0 - 2.0 %) 0.3 Absolute Granulocytes (1.4 - 6.5 /CUMM) 5.9 Absolute Lymphocytes (1.2 - 3.4 /CUMM) 1.7 Absolute Monocytes (0.10 - 0.60 /CUMM) 0.9 H Absolute Eosinophils (0.0 - 0.7 /CUMM) 0 Absolute Basophils (0.0 - 0.2 /CUMM) 0 PUBS MCHC (33.0 - 37.0 G/DL) 34.0 Assessment/Plan Assessment/Plan Imp: 1. 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 L renal atrophy 3. AUG[place]O on CKD 4. Back pain. Difficult to tell if is related to her L hydronephrosis or stent. It seems unlikely since both are chronic 5. Multiple comorbidities Plan: 1. Continue to treat underlying medical issues 2. Will not plan to change L ureteral stent at this time. She is due to have the L ureteral stent changed in 5-6 months. However when she has recovered from this illness if her pain persists will consider changing the stent earlier Consult Acknowledgment - Thank you for your consult request.
--- NOTE | 2017-06-02 22:10 | PN- Nephrology ---
Assessment/Plan Assessment: 1. [place] in setting of pneumonia and superimposed on CKD stage IV with high-grade proteinuria. The differential diagnosis for the latter includes diabetic nephropathy, hepatitis B associated glomerulonephritis, focal segmental glomerulosclerosis (FSGS) secondary to reduced renal mass due to an obstructed, atrophic left kidney 2. Pneumonia. 3. Metabolic acidosis secondary to diarrhea and renal failure - improved 4. Anemia 5. Hypovitaminosis D 6. Hepatitis B surface antigenemia 7. History of chronic left hydronephrosis with stenting, hypertension, hepatitis B 8. Small to moderate asymptomatic pericardial effusion of uncertain significance Suggestion: 1. Consider GI or ID consult regarding her chronic hepatitis B surface antigenemia 2. Continue oral NaHCO3 3. No steroids 4. Renal bx will likely not be helpful as it will likely not change our course of therapy Subjective Subjective: No apparent complaints today. 24hr urine results noted - pt is nephrotic. Other serologies wnl or unrevealing. Cryoglobulins pending. Objective Vital Signs and I&Os Vital Signs Date Time Temp Pulse Resp B/P B/P Pulse O2 O2 Flow FiO2 Mean Ox Delivery Rate 06/021 79 178/80 06/02 1444 98.8 75 18 150/80 100 06/02 1338 94 Room Air Room Air 06/02 0647 98.3 75 18 158/82 95 Room Air 06/02 0000 Room Air 06/01 2224 98.0 79 18 148/62 96 Room Air Intake & Output 06/02 1600 06/02 0400 06/01 1600 06/01 0400 05/31 1600 05/31 0400 Intake Total 1600 1040 1257.50 540 1021 100 Output Total 1850 600 450 150 Balance -250 440 807.50 390 1021 100 Intake, IV 1200 560 377.50 281 Intake, Oral 400 480 880 540 740 100 Output, Urine 1850 600 450 150 Patient 132 lb Weight Physical Exam: General: Well-developed, elderly woman in NAD Skin: No rash or jaundice HEENT: Conjunctivae pink, sclerae anicteric, mucous membranes moist Neck: Without masses or thyromegaly, no supraclavicular or cervical adenopathy Chest: Clear to P&A Heart: Regular rate and rhythm without S3 or rub Abdomen: Soft and nontender without palpable masses or organomegaly Extremities: Without cyanosis or edema Neuro: No focal findings, no asterixis or myoclonus Current Medications: Current Medications Sig/Sanya Start time Last Medication Dose Route Stop Time Status Admin Acetaminophen 325 MG Q4P PRN 05/27 1800 AC 06/02 PO 1549 Albuterol Sulfate 3 ML Q4P PRN 06/01 1230 AC 06/02 INH 1336 Amlodipine Besylate 10 MG DAILY 05/28 1000 AC 06/02 PO 0923 Azithromycin 250 MG DAILY 06/01 1000 DC 06/02 PO 0922 Ceftriaxone Sodium 1,000 MG DAILY 06/01 1000 DC 06/02 IV 1123 Cholecalciferol 2,000 IU DAILY 05/29 1000 AC 06/02 PO 0922 Clonidine 0.1 MG BID 05/31 1418 AC 06/02 PO 2121 Guaifenesin 10 ML Q4-6 PRN PRN 05/28 0230 AC 05/31 PO 0938 Heparin Sodium 5,000 UNIT Q8 05/27 2200 AC 06/02 (Porcine) SC 2122 Insulin Aspart 0 TIDAC 05/27 1700 AC 06/02 SC 1814 Iron Sucrose 200 MG Q48H 05/28 1800 AC 06/01 Sodium Chloride 100 ML IV 06/05 1814 1801 Polyethylene Glycol 17 GM DAILY 05/31 0945 AC 06/02 PO 0924 Prednisone 40 MG DAILY 06/01 1000 DC 06/02 PO 06/02 1001 0923 Sodium Bicarbonate 1,300 MG TID 05/28 1602 AC 06/02 PO 2122 Sodium Chloride 1,000 ML Q13H 06/01 1000 DC 06/01 IV 06/01 2259 1020 Results Pertinent Lab Results: Laboratory Tests 06/02 06/02 0940 0940 Urines Urinalysis LIGHT H Urine Color (YEL,AMB,STR) STRAW Urine Clarity (CLEAR) HAZY H Urine pH (5.0 - 8.0) 6.5 Ur Specific [place] (1.001 - 1.035) 1.015 Urine Protein (NEG,<30 MG/DL) 100 H Urine Ketones (NEG) NEG Urine Nitrite (NEG) NEG Urine Bilirubin (NEG) NEG Urine Urobilinogen (0.1 - 1.0 EU/dl) 0.2 Ur Leukocyte Esterase (NEG) NEG Ur Microscopic SEDIMENT EXAMINED Urine RBC (0 - 5 /HPF) 1-3 Urine WBC (0 - 2 /HPF) 1-3 H Ur Epithelial Cells (NONE,FEW) RARE Urine Bacteria (NEG/NONE) FEW H Urine Mucus (FEW,NONE) FEW Urine Hemoglobin (NEG) SMALL H Urine Osmolality (300 - 1000 MOSM/KG) 295 L Ur Random Creatinine (mg/dL) 21.6 Ur Random Sodium (30 - 90 mmol/L) 68 Ur Random Potassium (mmol/L) 14.5 Fraction Sodium Excret (<1% %) 6.9 H Urine Glucose (N MG/DL) NEG 06/02 06/01 0700 0716 Chemistry Sodium (137 - 145 mmol/L) 142 141 Potassium (3.5 - 5.1 mmol/L) 4.7 4.5 Chloride (98 - 107 mmol/L) 107 107 Carbon Dioxide (22 - 30 mmol/L) 21 L 20 L Anion Gap (5 - 16) 13 14 BUN (7 - 17 mg/dL) 74 H 79 H Creatinine (0.5 - 1.0 mg/dL) 3.1 H 3.1 H Estimated GFR (>60 ml/min) 14 L 14 L BUN/Creatinine Ratio (7 - 25 %) 23.9 25.5 H Albumin (3.5 - 5.0 g/dL) 2.6 L Prealbumin (17.6 - 36.0 mg/dL) 27.9 Hematology CBC w Diff NO MAN DIFF REQ NO MAN DIFF REQ WBC (4.8 - 10.8 /CUMM) 8.5 8.8 RBC (4.20 - 5.40 /CUMM) 2.73 L 2.66 L Hgb (12.0 - 16.0 G/DL) 8.3 L 8.0 L Hct (37 - 47 %) 24.3 L 23.7 L MCV (81.0 - 99.0 FL) 89.1 88.8 MCH (27.0 - 31.0 PG) 30.3 30.0 RDW (11.5 - 14.5 %) 13.6 13.8 Plt Count (130 - 400 /CUMM) 258 254 MPV (7.4 - 10.4 FL) 8.6 8.2 Gran % (42.2 - 75.2 %) 69.5 72.7 Lymphocytes % (20.5 - 51.1 %) 20.0 L 19.4 L Monocytes % (1.7 - 9.3 %) 10.1 H 7.5 Eosinophils % (0 - 5 %) 0.1 0.1 Basophils % (0.0 - 2.0 %) 0.3 0.3 Absolute Granulocytes (1.4 - 6.5 /CUMM) 5.9 6.4 Absolute Lymphocytes (1.2 - 3.4 /CUMM) 1.7 1.7 Absolute Monocytes (0.10 - 0.60 /CUMM) 0.9 H 0.7 H Absolute Eosinophils (0.0 - 0.7 /CUMM) 0 0 Absolute Basophils (0.0 - 0.2 /CUMM) 0 0 PUBS MCHC (33.0 - 37.0 G/DL) 34.0 33.8 05/31 05/31 05/31 1736 1659 0815 Immunology Cryoglobulin Interp Pending Miscellaneous Ref Lab Test Result (()) REPORT Urines Ur Random Creatinine (mg/dL) 33.3 Urine Total Volume (600 - 1500 ML/24HR) 1950 H Urine Creatinine (0.8 - 1.8 g/24HR) 0.6 L Ur Total Protein 24 Hr (42 - 255 mg/24HR) 6922.5 H 05/31 0515 Chemistry Sodium (137 - 145 mmol/L) 143 Potassium (3.5 - 5.1 mmol/L) 4.2 Chloride (98 - 107 mmol/L) 109 H Carbon Dioxide (22 - 30 mmol/L) 18 L Anion Gap (5 - 16) 15 BUN (7 - 17 mg/dL) 66 H Creatinine (0.5 - 1.0 mg/dL) 3.2 H Estimated GFR (>60 ml/min) 14 L BUN/Creatinine Ratio (7 - 25 %) 20.6 Hematology CBC w Diff NO MAN DIFF REQ WBC (4.8 - 10.8 /CUMM) 10.1 RBC (4.20 - 5.40 /CUMM) 2.71 L Hgb (12.0 - 16.0 G/DL) 8.1 L Hct (37 - 47 %) 24.0 L MCV (81.0 - 99.0 FL) 88.8 MCH (27.0 - 31.0 PG) 30.0 RDW (11.5 - 14.5 %) 13.8 Plt Count (130 - 400 /CUMM) 275 MPV (7.4 - 10.4 FL) 8.1 Gran % (42.2 - 75.2 %) 88.3 H Lymphocytes % (20.5 - 51.1 %) 9.9 L Monocytes % (1.7 - 9.3 %) 1.8 Eosinophils % (0 - 5 %) 0 Basophils % (0.0 - 2.0 %) 0 Absolute Granulocytes (1.4 - 6.5 /CUMM) 8.9 H Absolute Lymphocytes (1.2 - 3.4 /CUMM) 1.0 L Absolute Monocytes (0.10 - 0.60 /CUMM) 0.2 Absolute Eosinophils (0.0 - 0.7 /CUMM) 0 Absolute Basophils (0.0 - 0.2 /CUMM) 0 PUBS MCHC (33.0 - 37.0 G/DL) 33.8 Immunology Complement C3 (90 - 180 mg/dL) 137 Complement C4 (16 - 47 mg/dL) 24
[2017-06-02 22:12] VITALS: BP 178/80
[2017-06-03 07:04] VITALS: BP 190/86
--- NOTE | 2017-06-03 07:41 | PN- Housestaff ---
See Addendum Subjective Follow-up For: Bronchopneum [place] Pericardial effusion Hep C carrier Tele-Events Since Last Visit: off tele Subjective: Patient visited today, zambian speaking lady, was lying in bed comfortably in no acute distress, was alert and oriented. Shortness of breathing improved. No fever or chills, no chest pain, no other events. Contacted GI regarding Hepb treatment with hope to improve kidney function and recommended to follow in outpatient. Urology consulted regarding left flank pain and recommended conservative management. Patient was planned to be discharged. Review of Systems Constitutional: Reports: see HPI. Objective Last 24 Hrs of Vital Signs/I&O Vital Signs Date Time Temp Pulse Resp B/P B/P Pulse O2 O2 Flow FiO2 Mean Ox Delivery Rate 06/03 0704 98.2 80 12 190/86 95 Room Air 06/03 0000 Room Air 06/02 2212 98.1 79 18 178/80 94 Room Air 06/02 2121 79 178/80 06/02 1444 98.8 75 18 150/80 100 06/02 1338 94 Room Air Room Air Intake & Output 06/03 0800 06/03 0000 06/02 1600 Intake Total 639 826 3418 Output Total 1350 900 900 Balance -390 -170 100 Intake, IV 600 Intake, Oral 960 730 400 Number 0 0 Bowel Movements Output, Urine 1350 900 900 Physical Exam General Appearance: Alert, Oriented X3, Cooperative, No Acute Distress Skin: No Significant Lesion Skin Temp/Moisture Exam: Warm/Dry Sepsis Skin Exam (color): Normal for Ethnicity HEENT: Atraumatic, EOMI, Mucous Membr. moist/pink Cardiovascular: Regular Rate, Normal S1, Normal S2 Lungs: wheezing improved Abdomen: Soft, No Tenderness, flank tenderness Neurological: Normal Speech, Strength at 5/5 X4 Ext Extremities: No Edema Current Medications: Current Medications Sig/Sanya Start time Last Medication Dose Route Stop Time Status Admin Acetaminophen 325 MG .STK-MED ONE 06/02 1548 DC PO 06/02 1549 Acetaminophen 325 MG Q4P PRN 05/27 1800 AC 06/03 PO 0721 Albuterol Sulfate 3 ML Q4P PRN 06/01 1230 AC 06/02 INH 1336 Amlodipine Besylate 10 MG DAILY 05/28 1000 AC 06/02 PO 0923 Azithromycin 250 MG DAILY 06/01 1000 DC 06/02 PO 0922 Ceftriaxone Sodium 1,000 MG DAILY 06/01 1000 DC 06/02 IV 1123 Cholecalciferol 2,000 IU DAILY 05/29 1000 AC 06/02 PO 0922 Clonidine 0.1 MG BID 05/31 1418 AC 06/02 PO 2121 Guaifenesin 10 ML Q4-6 PRN PRN 05/28 0230 AC 05/31 PO 0938 Heparin Sodium 5,000 UNIT Q8 05/27 2200 AC 06/03 (Porcine) SC 0457 Insulin Aspart 0 TIDAC 05/27 1700 AC 06/02 SC 1814 Iron Sucrose 200 MG Q48H 05/28 1800 AC 06/01 Sodium Chloride 100 ML IV 06/05 1814 1801 Polyethylene Glycol 17 GM DAILY 05/31 0945 AC 06/02 PO 0924 Prednisone 40 MG DAILY 06/01 1000 DC 06/02 PO 06/02 1001 0923 Sodium Bicarbonate 1,300 MG TID 05/28 1602 AC 06/02 PO 212 Last 24 Hrs of Lab/Vishnu Results Last 24 Hrs of Labs/Mics: Laboratory Tests 06/03/17 0604: Sodium Pending, Potassium Pending, Chloride Pending, Carbon Dioxide Pending, Anion Gap Pending, BUN Pending, Creatinine Pending, BUN/Creatinine Ratio Pending 06/02/17 0940: Urinalysis LIGHT H, Urine Color STRAW, Urine Clarity HAZY H, Urine pH 6.5, Ur Specific [place] 1.015, Urine Protein 100 H, Urine Ketones NEG, Urine Nitrite NEG, Urine Bilirubin NEG, Urine Urobilinogen 0.2, Ur Leukocyte Esterase NEG, Ur Microscopic SEDIMENT EXAMINED, Urine RBC 1-3, Urine WBC 1-3 H, Ur Epithelial Cells RARE, Urine Bacteria FEW H, Urine Mucus FEW, Urine Hemoglobin SMALL H, Urine Glucose NEG 06/02/17 0940: Urine Osmolality 295 L, Ur Random Creatinine 21.6, Ur Random Sodium 68, Ur Random Potassium 14.5, Fraction Sodium Excret 6.9 H Assessment/Plan Assessment: 81 y F presented with cough, wheezing and weakness PMH: chronic left hydronephrosis (w/ indwelling stent changed every 9month, last changed in Feb), HTN, HLip, DM VS, Ph Ex at admission: BP 17 5/79, MD 81, RR 20, no fever, saturating well in room air Labs at admission: Hgb 9.8, MCV 89, WBC 10.3, Gran 81%, bicarbonate 16, AG 18, BUN 27, CR 2.6, AST 97, ALT 99, proBNP 1540, d-dimer 529, UA granular cast Imagings at admission: * CXR: Moderate to marked cardiomegaly. Mild pulmonary venous congestion without overt edema. No radiographic evidence of pneumonia. * Chest/Abd CT: 1. Multiple tree-in-bud nodules throughout both lungs, consistent with infectious bronchiolitis. Also, patchy peribronchial nodular opacities are present within lower lobes, compatible with bronchopneumonia. No pleural effusion. 2. Other findings in the chest include cardiomegaly, atherosclerotic disease of coronary arteries, mild ectasia of the ascending thoracic aorta (4 cm diameter) and moderate pericardial effusion. 3. Chronic left hydroureteronephrosis with left ureteral stent in place, and chronic [id number] atrophy of the left renal cortex. 4. Diffuse osteoporosis. Patient was admitted to telemetry floor for management of following conditions: Cough and dyspnea Bronchopneumonia/pneumonia CT scan revealed a possible bronchopneumonia. Antibiotic treatment was administered by . CXR repeated for re-evalaution 05/30/17: Severe enlargement of the cardiac silhouette can represent cardiomegaly and/or pericardial effusion. Mild pulmonary venous congestion. Increased interstitial markings can represent interstitial pneumonia. Clinical correlation is suggested. - Discontinue ceftriaxone and azithromycin PO - TRC nebs - beta-bloker was changed to Clonidine po - follow blood pressure Small- mod pericardial effusion - evaluation of CHF This finding was observed in CT scan Echocardiography 05/27/17: 1. Moderate aortic sclerosis is present with no valvular stenosis or insufficiency. Minimal enlargement of the ascending aorta is present 2. Mitral leaflet thickening is present with mild to moderate mitral insufficiency and mild to moderate left atrial enlargement. 3. A small to moderate size circumferential pericardial effusion is present which is most prominent anteriorly and toward the apex. The effusion is hemodynamically insignificant 5. The left ventricular chamber size is normal with mild concentric hypertrophy and hyperdynamic systolic function with an ejection fraction of greater than 75% and no resting wall motion abnormalities. 6. Right heart structures are grossly normal. Mild tricuspid insufficiency is present with a right ventricular systolic pressure 36 mmHg. 7. At the present time, there are no anatomic or Doppler findings present to suggest any hemodynamic significance to the pericardial effusion present. repeated Echo showed no significant change or effect on HD status. - Conservative management for now - I and O, vital signs and weight everyday - follow cardiology in outpatient, recommended to do follow up echo in outpatient [place] on CKD Proteinuria The underlying potential causea were DM, Hydronephrosis wih indewelling cath and Hep B carrier. Patient had Cr of 2.2 in february, when cath was changed with Dr Burrell. Fena at admission was 1.7. Nephrology was consulted, 24h urine analysis revealed Cr 0.6 and Pr of 7gr. Light chain were upper normal limit, complment studies pending. Urine lytes were repeated. Urology contacted for the left flank pain and recommended conservative management with recommendation to follow in outpatient. Gi was consulted regarding Hep B management. Cr today: - continue bicarb TID - Continue venofer - Follow urine lytes, light chain and complement - Follow nephrology in one week - follow urology - follow GI for Hep B treatment in outpatient as this could help with kidney function Anemia Hg 9.8, normal MCV, could be related to kidney disease, aplastic related to age, chronic disease. Also had increased Pr in 24hour urine without nephrotic presentation suggesting posibility of Myeloma. - iron panel: low iron low TIBC - venofer started due to CKD as higher level of ferritin is targeted - PO Iron was adminsitered Backpain management of pain with low dose tynelol - tynelol PRN for pain Chronic medical conditions, DM, HTN, HLP, Hep B carrier transaminitis most likely related to Hep B - Hold metformin due to increased CR and relatively normal Hb a1c - follow with PCP - Contniue Amlodipine - beta blockers was changed considering wheezing and started Cloniding 0.1 BID Diabetic diet, 2 g Na and fluid restriction DVT mechanical and phramacological FC Patient was discharged with recommendation to : Please follow-up with your PCP within one week of discharge. Please follow-up with your wiping cloth cutter and urologist within 1 week of discharge regarding your proteinuria and kidney injury. Please follow with your cost engineer within 1-2 weeks of discharge regarding effusion around heart. Please follow with your animation camera operator within 1-2 weeks of discharge regarding hepatitis management. Please note some of your medications has changed, please take them accordingly. Please come back to hospital if any of the symptoms worsen. Problem List: 1. Proteinuria 2. Pericardial effusion 3. Bronchopneumonia 4. Acute on chronic renal failure Pain Ratin Pain Location: back pain Pain Goal: Pain 4 or less Pain Plan: continue current plan Tomorrow's Labs & Rationales: MARILYN CLAYP
[2017-06-03 09:15] VITALS: BP 190/88
[2017-06-03] MEDS ORDERED: CLONIDINE HCL0.1 MG PO ×2 (11:46→15:52)
[2017-06-03] MEDS ORDERED: VENOFER200 MG/10 IV (11:46)
[2017-06-03] MEDS ORDERED: GUAIFENESI100 MG/5 M PO ×2 (11:46→15:52)
[2017-06-03] MEDS ORDERED: VITAMIN D31000 UNI2 PO ×2 (11:46→15:52)
--- NOTE | 2017-06-03 11:57 | Patient Discharge Instructions ---
Discharge Instructions General Discharge Information You were seen/treated for: Acute kidney injury Pneumonia Pericardial effusion Watch for these problems: Worsening of Chest pain, palpitation, dizziness, lightheadedness, increased cough and sputum or worsening of any other symptoms. Special Instructions: Please follow-up with your PCP within one week of discharge. Please follow-up with your sas etl developer and urologist within 1 week of discharge regarding your proteinuria and kidney injury. Please follow with your director packaging within 1-2 weeks of discharge regarding effusion around heart. Please follow with your carbonizer tester within 1-2 weeks of discharge regarding hepatitis management. Please note some of your medications has changed, please take them accordingly. Please come back to hospital if any of the symptoms worsen. Diet Continue normal diet: No Recommended Diet: Diabetic, With 2 gr sodium and 2 gr potassium limitation. Activity Full Activity/No Limits: No Activity Self Limited: Yes Acute Coronary Syndrome Inclusion Criteria At DC or during hospital stay patient has or had the following: ACS DIAGNOSIS No Discharge Core Measures Meds if any: Prescribed or Continued at Discharge Meds if any: NOT Prescribed or Continued at Discharge Congestive Heart Failure Inclusion Criteria At DC or during hospital stay patient has or had the following: CHF DIAGNOSIS No Discharge Core Measures Meds if any: Prescribed or Continued at Discharge Meds if any: NOT Prescribed or Continued at Discharge Cerebrovascular accident Inclusion Criteria At DC or during hospital stay patient has or had the following: CVA/TIA Diagnosis No Discharge Core Measures Meds if any: Prescribed or Continued at Discharge Meds if any: NOT Prescribed or Continued at Discharge Venous thromboembolism Inclusion Criteria VTE Diagnosis No VTE Type NONE VTE Confirmed by (Test) NONE Discharge Core Measures - Per Current guidelines, there needs to be overlap - treatment for the first 5 days of Warfarin therapy. - If discharged on Warfarin prior to 5 days of - overlap therapy, the patient will need to be - assessed for post discharge needs including - *Post discharge parental anticoagulation - *Warfarin and/or parental anticoagulation education - *Follow up date to check INR post discharge At least 5 days overlap therapy as Inpatient No Meds if any: Prescribed or Continued at Discharge Note: Overlap Therapy is Warfarin and Anticoagulant Meds if any: NOT Prescribed or Continued at Discharge
[2017-06-03 14:24] VITALS: BP 152/78
[2017-06-03] MEDS ORDERED: FERROUS SULFAT325 M3 PO ×2 (14:24→15:52)
--- NOTE | 2017-06-03 18:52 | PN- Cardiology ---
Subjective Subjective: The patient is comfortable with no new complaints. No chest pain. No shortness of breath. No palpitations. No nausea vomiting. Objective Vital Signs and I&Os Vital Signs Date Time Temp Pulse Resp B/P B/P Pulse O2 O2 Flow FiO2 Mean Ox Delivery Rate 06/03 1424 98.5 82 18 152/78 97 Room Air 06/03 1400 99 Room Air Room Air 06/03 0917 80 190/88 06/03 0917 80 190/88 06/03 0915 190/88 06/03 0800 Room Air 06/03 0704 98.2 80 12 190/86 95 Room Air 06/03 0000 Room Air 06/02 2212 98.1 79 18 178/80 94 Room Air 06/02 2121 79 178/80 Intake & Output 06/03 1600 06/03 0800 06/03 0000 06/02 1600 06/02 0800 06/02 0000 Intake Total 660 805 229 2802 600 1040 Output Total 600 1350 900 900 950 600 Balance 60 -390 -170 100 -350 440 Intake, IV 600 600 560 Intake, Oral 660 960 730 400 480 Number 0 0 Bowel Movements Output, Urine 600 1350 900 900 950 600 Patient 132 lb Weight Physical Exam: Gen: NAD HEENT: normal Lungs: Bilateral rhonci, normal resp. effort Heart: RRR, S1, S2, no murmurs Abdomen: Soft, nontender, no masses Extremities: Trace edema Neuro: Alert and oriented x 3, cranial nerves intact Current Medications: Current Medications Sig/Sanya Start time Last Medication Dose Route Stop Time Status Admin Acetaminophen 325 MG .STK-MED ONE 06/03 0720 DC PO 06/03 0721 Acetaminophen 325 MG Q4P PRN 05/27 1800 DCD 06/03 PO 0721 Albuterol Sulfate 3 ML Q4P PRN 06/01 1230 DCD 06/02 INH 1336 Amlodipine Besylate 10 MG DAILY 05/28 1000 DCD 06/03 PO 0917 Cholecalciferol 2,000 IU DAILY 05/29 1000 DCD 06/03 PO 0917 Clonidine 0.1 MG BID 05/31 1418 DCD 06/03 PO 0917 Guaifenesin 10 ML Q4-6 PRN PRN 05/28 0230 DCD 05/31 PO 0938 Heparin Sodium 5,000 UNIT Q8 05/27 2200 DCD 06/03 (Porcine) SC 1358 Insulin Aspart 0 TIDAC 05/27 1700 DCD 06/02 DE 1814 Iron Sucrose 200 MG Q48H 05/28 1800 DCD 06/01 Sodium Chloride 100 ML IV 06/05 181 1801 Polyethylene Glycol 17 GM DAILY 05/31 0945 DCD 06/03 PO 0917 Sodium Bicarbonate 1,300 MG TID 05/28 1602 DCD 06/03 PO 0917 Results Last 48 Hrs of Labs/Mics: Laboratory Tests 06/03/17 0604: Anion Gap 12, Estimated GFR 19 L, BUN/Creatinine Ratio 25.6 H 06/02/17 0940: Urinalysis LIGHT H, Urine Color STRAW, Urine Clarity HAZY H, Urine pH 6.5, Ur Specific [place] 1.015, Urine Protein 100 H, Urine Ketones NEG, Urine Nitrite NEG, Urine Bilirubin NEG, Urine Urobilinogen 0.2, Ur Leukocyte Esterase NEG, Ur Microscopic SEDIMENT EXAMINED, Urine RBC 1-3, Urine WBC 1-3 H, Ur Epithelial Cells RARE, Urine Bacteria FEW H, Urine Mucus FEW, Urine Hemoglobin SMALL H, Urine Glucose NEG 06/02/17 0940: Urine Osmolality 295 L, Ur Random Creatinine 21.6, Ur Random Sodium 68, Ur Random Potassium 14.5, Fraction Sodium Excret 6.9 H 06/02/17 0700: Anion Gap 13, Estimated GFR 14 L, BUN/Creatinine Ratio 23.9, Albumin 2.6 L, Prealbumin 27.9, CBC w Diff NO MAN DIFF REQ, RBC 2.73 L, MCV 89.1, MCH 30.3, RDW 13.6, MPV 8.6, Gran % 69.5, Lymphocytes % 20.0 L, Monocytes % 10.1 H, Eosinophils % 0.1, Basophils % 0.3, Absolute Granulocytes 5.9, Absolute Lymphocytes 1.7, Absolute Monocytes 0.9 H, Absolute Eosinophils 0, Absolute Basophils 0, PUBS MCHC 34.0 Assessment/Plan Assessment/Plan Assessment: 1. Pneumonia 2. Moderate sized pericardial effusion; hemodynamically insignificant at the present time by echocardiogram. Stable on repeat echocardiogram 3. HTN 4. History of HLD and DM 5. CAD with coronary calcification on CT chest. 6. [place] 7. Anemia 8. Transaminitis Recommendations: * Continued conservative management of pericardial effusion * 2 current cardiac medications. * Follow up with Dr. Jaimes. Repeat echocardiogram planned in 4-8 weeks to reassess pericardial effusion Continue telemetry? No
== END 2017-06-03 16:05 | disposition home health service (06) | DRG 682 ==
LOC: ERH 10:27 → ERHI 14:51 → 1NO 14:51 → ENRESERV 15:42 → ENTRNSPT 15:59 → EDTRNSPTSTS 16:01 → 1NO 16:15 → CMPTRNSPT 16:25 → 1NO 06-03 12:27
PROVIDERS: Internal Medicine; Physician Assistant; Radiology Vascular & Interventional Radiology
DX: N17.9 Acute kidney failure, unspecified (principal); J18.9 Pneumonia, unspecified organism; E87.2 Acidosis; I31.3 Pericardial effusion (noninflammatory); I13.0 Hypertensive heart and chronic kidney disease with heart failure and stage 1 through stage 4 chronic kidney disease, or unspecified chronic kidney disease; D64.9 Anemia, unspecified; I50.9 Heart failure, unspecified; E11.9 Type 2 diabetes mellitus without complications; B18.1 Chronic viral hepatitis B without delta-agent; J21.9 Acute bronchiolitis, unspecified; G89.29 Other chronic pain; N18.4 Chronic kidney disease, stage 4 (severe); N13.1 Hydronephrosis with ureteral stricture, not elsewhere classified; R74.0 Nonspecific elevation of levels of transaminase and lactic acid dehydrogenase [LDH]; I34.0 Nonrheumatic mitral (valve) insufficiency; I70.0 Atherosclerosis of aorta; M54.9 Dorsalgia, unspecified; R80.9 Proteinuria, unspecified; Z96.0 Presence of urogenital implants; Z86.73 Personal history of transient ischemic attack (TIA), and cerebral infarction without residual deficits; Z79.84 Long term (current) use of oral hypoglycemic drugs; E55.9 Vitamin D deficiency, unspecified; M81.0 Age-related osteoporosis without current pathological fracture
CPT/HCPCS: 1NSP; 83883; 84133; 84300; 86160; 36415; 71045; 71046; 74176; 81001; 82436; 82570; 82595; 87040; 87070; 87086; 87389; 87449; 87450; 87517; 87804; 87804-59; 93005; 93010; 93306; 93308; 93321; 96374; 96375; J0131; J0456; J0696; J1644; J1756; J2920; J7040; J7060; Q2036